=== PATIENT | male | born 1940 | race Hispanic/Latino ===

== ENCOUNTER 2022-04-20 11:24 | Day surgery (SDC) | payer OTHER ==
--- NOTE | 2022-04-17 09:39 | RAD REPORT ---
EXAM DESCRIPTION: RAD - Chest Pa And Lat (2 Views) - 04/17/2022 9:20 am CLINICAL HISTORY: Pre op pending abdominal angiogram Chest pain. COMPARISON: No comparisons TECHNIQUE: PA and lateral views of the chest were obtained. FINDINGS: The lungs are hyperexpanded compatible with COPD. The heart is upper limit of normal in si ze. No fracture or aggressive bony process. IMPRESSION: COPD without acute process identified. The USPSTF recommends annual screening for lung cancer with low-dose CT (LDCT) in adults aged 50 to 8 0 years who have a 20 pack-year smoking history and currently smoke or have quit within the past 15 y ears.
[2022-04-17 09:44] LABS: Absolute Lymphocytes (CBC) 1.8 K/uL (0.7-4.9); Lymphocytes % 16.8 % (15.3-44.8); MCV 96.8 fL (80-100); MPV 9.5 fL (7.6-11.3)
[2022-04-17 09:47] LABS: Protime INR 1.05
[2022-04-17 09:52] LABS: Potassium 4.1 mmol/L (3.5-5.1)
--- NOTE | 2022-04-17 16:49 | EKG ---
Test Date: 2022-04-17 Test Time: 09:01:56 Compliance Investigator: ERWIN MEASUREMENT RESULTS: Intervals: Rate: 69 IA: QRSD: 134 QT: 444 QTc: 475 [place]: P: IA: QRS: 6 T: 43 INTERPRETIVE STATEMENTS: Wide QRS rhythm Right bundle branch block Abnormal ECG No previous ECG available for comparison Electronically Signed On 04-17-22 16:49:18 SENIOR SALES ASSISTANT by Augustin Snow
[~2022-04-20 11:24] MED LIST: NA CHLORIDE 0.9% 500 ML ONE
[2022-04-20 11:59] VITALS: TEMP 97
[2022-04-20] MEDS ORDERED: FENTANYL CITR 100 MCG/2 ML ONE (12:30)
[2022-04-20] MEDS ORDERED: HEPA 1000U/500MLS 2,000 UNIT/1,000 ML BAG IV ONE (12:30)
[2022-04-20] MEDS ORDERED: ATROPINE SULF 1 MG/10 ML SYR IV ONE (12:31)
[2022-04-20] MEDS ORDERED: HEPARIN 5000 UNIT/ML 1 ML VIAL ONE (12:31)
[2022-04-20] MEDS ORDERED: MIDAZOLAM HCL 2 MG/2 ML INJ ONE (12:31)
[2022-04-20] MEDS ORDERED: NITROGLYCERIN 100 MCG/ML SYR (for cath lab use only) IV ONE (12:31)
[2022-04-20] MEDS ORDERED: HEPARIN 10,000 UNIT/10 ML VIAL IV ONE (12:31)
[2022-04-20] MEDS ORDERED: VERAPAMIL HCL 10 MG/4 ML VIAL IV ONE (12:31)
[2022-04-20] MEDS ORDERED: NACHLORIDE 0.45% 1,000 ML IV ONE (13:57)
[2022-04-20 15:39] VITALS: O2SAT 100
[2022-04-20 16:47] VITALS: BP 167/69
--- NOTE | 2022-04-20 18:34 | OP ---
Date of Procedure: 04/20/2022 Surgeon: POLY ROBERT Procedure Performed: Peripheral angiogram with runoff. Indication: Peripheral vascular disease. Access: Right femoral artery 4-Dutch closed with manual pressure. Complications: None. Bleeding: Less than 10 mL. Anesthesia: Total sedation time was 30 minutes, used fentanyl and Versed. Description Of Procedure: After risks, benefits, alternatives were explained, the patient agreed to procedure and signed informed consent. [facility], prepped and draped in the usual sterile fashion. Then, I accessed the right femoral artery u sing micropuncture kit, fluoroscopy, and ultrasound guidance and placed a 4-Dutch [place] sheath, t ook 4-Dutch straight pigtail catheter into the distal aorta, performed distal aortogram and runoff. Then, we removed the catheter and sheath and manual pressure was used for closure with good hemostas is. Findings: 1.The aorta is widely patent. 2.Bilateral iliac arteries are widely patent and normal. 3.Bilateral common femoral arteries are widely patent and normal. 4.Bilateral SFAs are normal with mild luminal irregularities. 5.Bilateral profunda are widely patent. 6.Below the knee circulation, there was a 3-vessel runoff; however, the flow was sluggish because I could not use large load of contrast due to the chronic kidney disease, but the vessels appeared to b e patent. Conclusion: Mild peripheral vascular disease. Recommendation: Medical management. SR/MODL Voice ID: [id number] Report ID: [id number]
== END 2022-04-20 16:59 | disposition home or self-care (01) ==
LOC: CCL 11:24
PROVIDERS: ATTEND Internal Medicine
DX: I73.9 Peripheral vascular disease, unspecified (principal); I11.0 Hypertensive heart disease with heart failure; I50.9 Heart failure, unspecified; I45.10 Unspecified right bundle-branch block; E11.9 Type 2 diabetes mellitus without complications; E78.5 Hyperlipidemia, unspecified; Z87.891 Personal history of nicotine dependence; Z79.899 Other long term (current) drug therapy; Z82.49 Family history of ischemic heart disease and other diseases of the circulatory system
CPT/HCPCS: 93005; 85025; 80048; 36415; 85610; 82947; 85730; 71046; 36200; 75630; 76937; C1893; Q9966; J2250; J3010; J7040; J1644; J0461

== ENCOUNTER 2022-05-10 12:34 | Inpatient (IN) | payer OTHER ==
--- OUTSIDE RECORDS SUMMARY | 2022-05-10 12:38 | XMS REPORT | Continuity of Care Document ---
:1940 Author Organization [facility] t Address [facility] Jacek Alcaraz [address] [place] [address] Care Team Providers Name Role Phone Matthew Sutherland Attending Clinician Unavailable Payers Payer Name Policy Type Policy Number Effective Date Expiration Date S ouranthony [employer] MEDICARE C1 [id number] Common Sp mariaelena - [facility] Problems Condition Condition Condition Status Onset Resolution Last Treating Co mments Source Name Details Category Date Date Treatment Clinician Date [id number] Body mass Problem Com mon index Spirit [BMI] - [facility] 37.0-37.9, [facility] [id number] 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 [id number] Psoriasis Problem Commo n Spirit - [facility] [id number] Primary Problem Common insomnia Spirit - [facility] [id number] Chronic Problem Commo n kidney Spirit disease, - [facility] stage 4 (severe) [facility] [id number] Type 2 Problem Commo n 07 diabetes [facility] mellitus - [facility] with [facility] kidney [place] disease Allergies, Adverse Reactions, Alerts This patient has no known allergies or adverse reactions. Social History Social Habit Start Date Stop Date Quantity Comments Source History of Tobacco Use Co mmon [facility] Sex Assigned At Com mon [facility] Smoking Status Start Date Stop Date Source Former Smoker 2022-02-03 00:00:00 2022-02-03 00:00:00 Common S pirit [facility] Medications Ordered Filled Start Stop Current Ordering Indication Dosage Frequency Signature Comments Components Source Medication Medication Date Date Medication? Clinician (SIG) Name Name Zolpidem Zolpidem 2021-03 No Zolpidem Tartrate 10 Tartrate 10 1-15 Tartrate MG MG 00:00: 10 MG 00 Zolpidem Zolpidem 2021-03 No Zolpidem Tartrate 10 Tartrate 10 1-15 Tartrate MG MG 00:00: 10 MG 00 Zolpidem Zolpidem No Zolpidem Tartrate 10 Tartrate 10 8-16 Tartrate MG MG 00:00: 10 MG 00 Atorvastati Atorvastati No 1{table QD Atorvastat n Calcium n Calcium 8-16 t} in Calcium 10 MG 10 MG 00:00: 10 MG 00 Atorvastati Atorvastati No 1{table QD Atorvastat n Calcium n Calcium 8-16 t} in Calcium 10 MG 10 MG 00:00: 10 MG 00 Zolpidem Zolpidem No Zolpidem Tartrate 10 Tartrate 10 8-16 Tartrate MG MG 00:00: 10 MG 00 Atorvastati Atorvastati No 1{table QD Atorvastat n Calcium n Calcium 8-16 t} in Calcium 10 MG 10 MG 00:00: 10 MG 00 Zolpidem Zolpidem 0 No Zolpidem Tartrate 10 Tartrate 10 8-16 Tartrate MG MG 00:00: 10 MG 00 Zolpidem Zolpidem 2021-0 No Zolpidem Tartrate 10 Tartrate 10 4-29 Tartrate MG MG 00:00: 10 MG 00 Zolpidem Zolpidem 2021-0 No QD Zolpidem Tartrate 10 Tartrate 10 3-28 Tartrate MG MG 00:00: 10 MG 00 Zolpidem Zolpidem 2021-0 No QD Zolpidem Tartrate 10 Tartrate 10 3-28 Tartrate MG MG 00:00: 10 MG 00 Zolpidem Zolpidem 2021-0 No QD Zolpidem Tartrate 10 Tartrate 10 3-28 Tartrate MG MG 00:00: 10 MG 00 Zolpidem Zolpidem 2021-0 No QD Zolpidem Tartrate 10 Tartrate 10 3-28 Tartrate MG MG 00:00: 10 MG 00 Zolpidem Zolpidem 2021-0 No QD Zolpidem Tartrate 10 Tartrate 10 3-28 Tartrate MG MG 00:00: 10 MG 00 Zolpidem Zolpidem 2021-0 No QD Zolpidem Tartrate 10 Tartrate 10 3-28 Tartrate MG MG 00:00: 10 MG 00 Zolpidem Zolpidem 2021-0 No Zolpidem Tartrate 10 Tartrate 10 1-27 Tartrate MG MG 00:00: 10 MG 00 Zolpidem Zolpidem 2020-1 No Zolpidem Tartrate 10 Tartrate 10 0-27 Tartrate MG MG 00:00: 10 MG 00 Furosemide Furosemide No 1{table QD Furosemide 40 MG 40 MG t} 40 MG Vitamin D3 Vitamin D3 No Vitamin D3 Allopurinol Allopurinol No Allopurino 300 MG 300 MG l 300 MG Glimepiride Glimepiride No Glimepirid 4 MG 4 MG e 4 MG Acetaminoph Acetaminoph No 1{capsu QID Acetaminop en 500 MG en 500 MG le_as_n hen 500 MG eeded} Tradjenta 5 Tradjenta 5 No 1{table QD Tradjenta MG MG t} 5 MG cloNIDine cloNIDine No 1{table BID cloNIDine HCl 0.2 MG HCl 0.2 MG t} HCl 0.2 MG Colchicine Colchicine No Colchicine 0.6 MG 0.6 MG 0.6 MG Acetaminoph Acetaminoph No QID Acetaminop en 500 MG en 500 MG hen 500 MG Losartan Losartan No 1{table QD Losartan Potassium Potassium t} Potassium 100 MG 100 MG 100 MG Naphcon-A Naphcon-A No QID Naphcon-A 0.025-0.3 % 0.025-0.3 % 0.025-0.3 % Montelukast Montelukast No 1{table QD Montelukas Sodium 10 Sodium 10 t} t Sodium MG MG 10 MG Jenna Jenna No QD Jenna Allergy 180 Allergy 180 Allergy MG MG 180 MG Calazime Calazime No Calazime Skin Skin Skin Protectant Protectant Protectant Tradjenta 5 Tradjenta 5 No Tradjenta MG MG 5 MG Tumersaid Tumersaid No Tumersaid Vitamin D3 Vitamin D3 No Vitamin D3 hydroCHLORO hydroCHLORO No hydroCHLOR thiazide 25 thiazide 25 Othiazide MG MG 25 MG Tradjenta 5 Tradjenta 5 No Tradjenta MG MG 5 MG cloNIDine cloNIDine No cloNIDine HCl 0.2 MG HCl 0.2 MG HCl 0.2 MG Jenna Jenna No QD Jenna Allergy 180 Allergy 180 Allergy MG MG 180 MG Colchicine Colchicine No Colchicine 0.6 MG 0.6 MG 0.6 MG Acetaminoph Acetaminoph No 1{capsu QID Acetaminop en 500 MG en 500 MG le_as_n hen 500 MG eeded} Glimepiride Glimepiride No Glimepirid 4 MG 4 MG e 4 MG Acetaminoph Acetaminoph No QID Acetaminop en 500 MG en 500 MG hen 500 MG Montelukast Montelukast No 1{table QD Montelukas Sodium 10 Sodium 10 t} t Sodium MG MG 10 MG Losartan Losartan No Losartan Potassium Potassium Potassium 100 MG 100 MG 100 MG Meloxicam Meloxicam No 1{table QD Meloxicam 15 MG 15 MG t} 15 MG Calazime Calazime No Calazime Skin Skin Skin Protectant Protectant Protectant Naphcon-A Naphcon-A No QID Naphcon-A 0.025-0.3 % 0.025-0.3 % 0.025-0.3 % Allopurinol Allopurinol No Allopurino 300 MG 300 MG l 300 MG Furosemide Furosemide No 1{table QD Furosemide 40 MG 40 MG t} 40 MG hydrALAZINE hydrALAZINE No hydrALAZIN HCl 50 MG HCl 50 MG E HCl 50 MG Tumersaid Tumersaid No Tumersaid Colchicine Colchicine No Colchicine 0.6 MG 0.6 MG 0.6 MG Furosemide Furosemide No 1{table QD Furosemide 40 MG 40 MG t} 40 MG Losartan Losartan No 1{table QD Losartan Potassium Potassium t} Potassium 100 MG 100 MG 100 MG cloNIDine cloNIDine No cloNIDine HCl 0.2 MG HCl 0.2 MG HCl 0.2 MG Glimepiride Glimepiride No Glimepirid 4 MG 4 MG e 4 MG Allopurinol Allopurinol No Allopurino 300 MG 300 MG l 300 MG Glucosamine Glucosamine No Glucosamin e Acetaminoph Acetaminoph No 1{capsu QID Acetaminop en 500 MG en 500 MG le_as_n hen 500 MG eeded} hydroCHLORO hydroCHLORO No hydroCHLOR thiazide 25 thiazide 25 Othiazide MG MG 25 MG Chondroitin Chondroitin No Chondroiti Sulfate Sulfate n Sulfate Vitamin C Vitamin C No Vitamin C hydrALAZINE hydrALAZINE No hydrALAZIN HCl 50 MG HCl 50 MG E HCl 50 MG Allopurinol Allopurinol No Allopurino 300 MG 300 MG l 300 MG cloNIDine cloNIDine No 1{table BID cloNIDine HCl 0.2 MG HCl 0.2 MG t} HCl 0.2 MG Tradjenta 5 Tradjenta 5 No Tradjenta MG MG 5 MG Jenna Jenna No QD Jenna Allergy 180 Allergy 180 Allergy MG MG 180 MG Turmeric Turmeric No Turmeric Glimepiride Glimepiride No Glimepirid 4 MG 4 MG e 4 MG Vitamin D3 Vitamin D3 No Vitamin D3 Calazime Calazime No Calazime Skin Skin Skin Protectant Protectant Protectant Losartan Losartan No Losartan Potassium Potassium Potassium 100 MG 100 MG 100 MG Montelukast Montelukast No 1{table QD Montelukas Sodium 10 Sodium 10 t} t Sodium MG MG 10 MG hydrALAZINE hydrALAZINE No 1{table QD hydrALAZIN HCl 50 MG HCl 50 MG t_with_ E HCl 50 food} MG MSM MSM No MSM Tumersaid Tumersaid No Tumersaid hydroCHLORO hydroCHLORO No hydroCHLOR thiazide 25 thiazide 25 Othiazide MG MG 25 MG Naphcon-A Naphcon-A No QID Naphcon-A 0.025-0.3 % 0.025-0.3 % 0.025-0.3 % Meloxicam Meloxicam No 1{table QD Meloxicam 15 MG 15 MG t} 15 MG Selenium Selenium No Selenium Co Q10 Co Q10 No Co Q10 PreserVisio PreserVisio No PreserVisi n AREDS 2 n AREDS 2 on AREDS 2 Acetaminoph Acetaminoph No QID Acetaminop en 500 MG en 500 MG hen 500 MG Vitamin D3 Vitamin D3 No Vitamin D3 Acetaminoph Acetaminoph No 1{capsu QID Acetaminop en 500 MG en 500 MG le_as_n hen 500 MG eeded} Chondroitin Chondroitin No Chondroiti Sulfate Sulfate n Sulfate Calazime Calazime No Calazime Skin Skin Skin Protectant Protectant Protectant Vitamin C Vitamin C No Vitamin C Losartan Losartan No 1{table QD Losartan Potassium Potassium t} Potassium 100 MG 100 MG 100 MG cloNIDine cloNIDine No 1{table BID cloNIDine HCl 0.2 MG HCl 0.2 MG t} HCl 0.2 MG Colchicine Colchicine No Colchicine 0.6 MG 0.6 MG 0.6 MG hydroCHLORO hydroCHLORO No hydroCHLOR thiazide 25 thiazide 25 Othiazide MG MG 25 MG Losartan Losartan No Losartan Potassium Potassium Potassium 100 MG 100 MG 100 MG Tumersaid Tumersaid No Tumersaid hydroCHLORO hydroCHLORO No hydroCHLOR thiazide 25 thiazide 25 Othiazide MG MG 25 MG Glimepiride Glimepiride No Glimepirid 4 MG 4 MG e 4 MG Allopurinol Allopurinol No Allopurino 300 MG 300 MG l 300 MG PreserVisio PreserVisio No PreserVisi n AREDS 2 n AREDS 2 on AREDS 2 Naphcon-A Naphcon-A No QID Naphcon-A 0.025-0.3 % 0.025-0.3 % 0.025-0.3 % hydrALAZINE hydrALAZINE No 1{table QD hydrALAZIN HCl 50 MG HCl 50 MG t_with_ E HCl 50 food} MG MSM MSM No MSM Allopurinol Allopurinol No Allopurino 300 MG 300 MG l 300 MG Acetaminoph Acetaminoph No QID Acetaminop en 500 MG en 500 MG hen 500 MG Co Q10 Co Q10 No Co Q10 Glucosamine Glucosamine No Glucosamin e hydrALAZINE hydrALAZINE No hydrALAZIN HCl 50 MG HCl 50 MG E HCl 50 MG cloNIDine cloNIDine No cloNIDine HCl 0.2 MG HCl 0.2 MG HCl 0.2 MG Furosemide Furosemide No 1{table QD Furosemide 40 MG 40 MG t} 40 MG Montelukast Montelukast No 1{table QD Montelukas Sodium 10 Sodium 10 t} t Sodium MG MG 10 MG Jenna Jenna No QD Jenna Allergy 180 Allergy 180 Allergy MG MG 180 MG Glimepiride Glimepiride No Glimepirid 4 MG 4 MG e 4 MG Tradjenta 5 Tradjenta 5 No Tradjenta MG MG 5 MG Selenium Selenium No Selenium Meloxicam Meloxicam No 1{table QD Meloxicam 15 MG 15 MG t} 15 MG Turmeric Turmeric No Turmeric Montelukast Montelukast No 1{table QD Montelukas Sodium 10 Sodium 10 t} t Sodium MG MG 10 MG Vitamin C Vitamin C No Vitamin C Glimepiride Glimepiride No Glimepirid 4 MG 4 MG e 4 MG hydroCHLORO hydroCHLORO No hydroCHLOR thiazide 25 thiazide 25 Othiazide MG MG 25 MG Allopurinol Allopurinol No Allopurino 300 MG 300 MG l 300 MG Chondroitin Chondroitin No Chondroiti Sulfate Sulfate n Sulfate Vitamin D3 Vitamin D3 No Vitamin D3 Colchicine Colchicine No Colchicine 0.6 MG 0.6 MG 0.6 MG Calazime Calazime No Calazime Skin Skin Skin Protectant Protectant Protectant Acetaminoph Acetaminoph No 1{capsu QID Acetaminop en 500 MG en 500 MG le_as_n hen 500 MG eeded} Allopurinol Allopurinol No Allopurino 300 MG 300 MG l 300 MG cloNIDine cloNIDine No 1{table BID cloNIDine HCl 0.2 MG HCl 0.2 MG t} HCl 0.2 MG cloNIDine cloNIDine No cloNIDine HCl 0.2 MG HCl 0.2 MG HCl 0.2 MG PreserVisio PreserVisio No PreserVisi n AREDS 2 n AREDS 2 on AREDS 2 Naphcon-A Naphcon-A No QID Naphcon-A 0.025-0.3 % 0.025-0.3 % 0.025-0.3 % Glimepiride Glimepiride No Glimepirid 4 MG 4 MG e 4 MG Co Q10 Co Q10 No Co Q10 Tumersaid Tumersaid No Tumersaid Acetaminoph Acetaminoph No QID Acetaminop en 500 MG en 500 MG hen 500 MG Losartan Losartan No Losartan Potassium Potassium Potassium 100 MG 100 MG 100 MG Glucosamine Glucosamine No Glucosamin e Furosemide Furosemide No 1{table QD Furosemide 40 MG 40 MG t} 40 MG MSM MSM No MSM Jenna Jenna No QD Jenna Allergy 180 Allergy 180 Allergy MG MG 180 MG hydrALAZINE hydrALAZINE No hydrALAZIN HCl 50 MG HCl 50 MG E HCl 50 MG Tradjenta 5 Tradjenta 5 No Tradjenta MG MG 5 MG Selenium Selenium No Selenium Meloxicam Meloxicam No 1{table QD Meloxicam 15 MG 15 MG t} 15 MG Turmeric Turmeric No Turmeric Montelukast Montelukast No 1{table QD Montelukas Sodium 10 Sodium 10 t} t Sodium MG MG 10 MG Co Q10 Co Q10 No Co Q10 Furosemide Furosemide No 1{table QD Furosemide 40 MG 40 MG t} 40 MG hydrALAZINE hydrALAZINE No 1{table QD hydrALAZIN HCl 50 MG HCl 50 MG t_with_ E HCl 50 food} MG Acetaminoph Acetaminoph No 1{capsu QID Acetaminop en 500 MG en 500 MG le_as_n hen 500 MG eeded} Vitamin D3 Vitamin D3 No Vitamin D3 Glimepiride Glimepiride No Glimepirid 4 MG 4 MG e 4 MG Tradjenta 5 Tradjenta 5 No Tradjenta MG MG 5 MG Allopurinol Allopurinol No Allopurino 300 MG 300 MG l 300 MG Meloxicam Meloxicam No 1{table QD Meloxicam 15 MG 15 MG t} 15 MG Turmeric Turmeric No Turmeric Tumersaid Tumersaid No Tumersaid Colchicine Colchicine No Colchicine 0.6 MG 0.6 MG 0.6 MG cloNIDine cloNIDine No 1{table BID cloNIDine HCl 0.2 MG HCl 0.2 MG t} HCl 0.2 MG PreserVisio PreserVisio No PreserVisi n AREDS 2 n AREDS 2 on AREDS 2 Atorvastati Atorvastati No 1{table QD Atorvastat n Calcium n Calcium t} in Calcium 10 MG 10 MG 10 MG Losartan Losartan No Losartan Potassium Potassium Potassium 100 MG 100 MG 100 MG hydroCHLORO hydroCHLORO No hydroCHLOR thiazide 25 thiazide 25 Othiazide MG MG 25 MG Glucosamine Glucosamine No Glucosamin e Acetaminoph Acetaminoph No QID Acetaminop en 500 MG en 500 MG hen 500 MG Losartan Losartan No 1{table QD Losartan Potassium Potassium t} Potassium 100 MG 100 MG 100 MG MSM MSM No MSM hydroCHLORO hydroCHLORO No hydroCHLOR thiazide 25 thiazide 25 Othiazide MG MG 25 MG Jenna Jenna No QD Jenna Allergy 180 Allergy 180 Allergy MG MG 180 MG Calazime Calazime No Calazime Skin Skin Skin Protectant Protectant Protectant Vitamin C Vitamin C No Vitamin C Selenium Selenium No Selenium Naphcon-A Naphcon-A No QID Naphcon-A 0.025-0.3 % 0.025-0.3 % 0.025-0.3 % Chondroitin Chondroitin No Chondroiti Sulfate Sulfate n Sulfate Allopurinol Allopurinol No Allopurino 300 MG 300 MG l 300 MG cloNIDine cloNIDine No cloNIDine HCl 0.2 MG HCl 0.2 MG HCl 0.2 MG Glimepiride Glimepiride No Glimepirid 4 MG 4 MG e 4 MG Atorvastati Atorvastati No Atorvastat n Calcium n Calcium in Calcium 10 MG 10 MG 10 MG hydrALAZINE hydrALAZINE No hydrALAZIN HCl 50 MG HCl 50 MG E HCl 50 MG Vitamin D3 Vitamin D3 No Vitamin D3 Tumersaid Tumersaid No Tumersaid Colchicine Colchicine No Colchicine 0.6 MG 0.6 MG 0.6 MG Allopurinol Allopurinol No Allopurino 300 MG 300 MG l 300 MG PreserVisio PreserVisio No PreserVisi n AREDS 2 n AREDS 2 on AREDS 2 Jenna Jenna No QD Jenna Allergy 180 Allergy 180 Allergy MG MG 180 MG Vitamin C Vitamin C No Vitamin C cloNIDine cloNIDine No 1{table BID cloNIDine HCl 0.2 MG HCl 0.2 MG t} HCl 0.2 MG Atorvastati Atorvastati No 1{table QD Atorvastat n Calcium n Calcium t} in Calcium 10 MG 10 MG 10 MG hydrALAZINE hydrALAZINE No hydrALAZIN HCl 50 MG HCl 50 MG E HCl 50 MG Furosemide Furosemide No 1{table QD Furosemide 40 MG 40 MG t} 40 MG Calazime Calazime No Calazime Skin Skin Skin Protectant Protectant Protectant Acetaminoph Acetaminoph No 1{capsu QID Acetaminop en 500 MG en 500 MG le_as_n hen 500 MG eeded} Turmeric Turmeric No Turmeric Acetaminoph Acetaminoph No QID Acetaminop en 500 MG en 500 MG hen 500 MG Chondroitin Chondroitin No Chondroiti Sulfate Sulfate n Sulfate Allopurinol Allopurinol No Allopurino 300 MG 300 MG l 300 MG Meloxicam Meloxicam No 1{table QD Meloxicam 15 MG 15 MG t} 15 MG Selenium Selenium No Selenium Naphcon-A Naphcon-A No QID Naphcon-A 0.025-0.3 % 0.025-0.3 % 0.025-0.3 % Co Q10 Co Q10 No Co Q10 Glimepiride Glimepiride No Glimepirid 4 MG 4 MG e 4 MG Tradjenta 5 Tradjenta 5 No Tradjenta MG MG 5 MG Glucosamine Glucosamine No Glucosamin e Montelukast Montelukast No 1{table QD Montelukas Sodium 10 Sodium 10 t} t Sodium MG MG 10 MG MSM MSM No MSM Losartan Losartan No Losartan Potassium Potassium Potassium 100 MG 100 MG 100 MG cloNIDine cloNIDine No cloNIDine HCl 0.2 MG HCl 0.2 MG HCl 0.2 MG Glimepiride Glimepiride No Glimepirid 4 MG 4 MG e 4 MG Atorvastati Atorvastati No Atorvastat n Calcium n Calcium in Calcium 10 MG 10 MG 10 MG hydroCHLORO hydroCHLORO No hydroCHLOR thiazide 25 thiazide 25 Othiazide MG MG 25 MG Montelukast Montelukast No 1{table QD Montelukas Sodium 10 Sodium 10 t} t Sodium MG MG 10 MG Vitamin C Vitamin C No Vitamin C Glimepiride Glimepiride No Glimepirid 4 MG 4 MG e 4 MG hydroCHLORO hydroCHLORO No hydroCHLOR thiazide 25 thiazide 25 Othiazide MG MG 25 MG Allopurinol Allopurinol No Allopurino 300 MG 300 MG l 300 MG Chondroitin Chondroitin No Chondroiti Sulfate Sulfate n Sulfate Vitamin D3 Vitamin D3 No Vitamin D3 Colchicine Colchicine No Colchicine 0.6 MG 0.6 MG 0.6 MG Calazime Calazime No Calazime Skin Skin Skin Protectant Protectant Protectant Acetaminoph Acetaminoph No 1{capsu QID Acetaminop en 500 MG en 500 MG le_as_n hen 500 MG eeded} Allopurinol Allopurinol No Allopurino 300 MG 300 MG l 300 MG cloNIDine cloNIDine No 1{table BID cloNIDine HCl 0.2 MG HCl 0.2 MG t} HCl 0.2 MG cloNIDine cloNIDine No cloNIDine HCl 0.2 MG HCl 0.2 MG HCl 0.2 MG PreserVisio PreserVisio No PreserVisi n AREDS 2 n AREDS 2 on AREDS 2 Naphcon-A Naphcon-A No QID Naphcon-A 0.025-0.3 % 0.025-0.3 % 0.025-0.3 % Glimepiride Glimepiride No Glimepirid 4 MG 4 MG e 4 MG Co Q10 Co Q10 No Co Q10 Tumersaid Tumersaid No Tumersaid Acetaminoph Acetaminoph No QID Acetaminop en 500 MG en 500 MG hen 500 MG Losartan Losartan No Losartan Potassium Potassium Potassium 100 MG 100 MG 100 MG Glucosamine Glucosamine No Glucosamin e Furosemide Furosemide No 1{table QD Furosemide 40 MG 40 MG t} 40 MG MSM MSM No MSM Jenna Jenna No QD Jenna Allergy 180 Allergy 180 Allergy MG MG 180 MG hydrALAZINE hydrALAZINE No hydrALAZIN HCl 50 MG HCl 50 MG E HCl 50 MG Tradjenta 5 Tradjenta 5 No Tradjenta MG MG 5 MG Selenium Selenium No Selenium Meloxicam Meloxicam No 1{table QD Meloxicam 15 MG 15 MG t} 15 MG Turmeric Turmeric No Turmeric hydroCHLORO hydroCHLORO No hydroCHLOR thiazide 25 thiazide 25 Othiazide MG MG 25 MG Losartan Losartan No Losartan Potassium Potassium Potassium 100 MG 100 MG 100 MG Allopurinol Allopurinol No Allopurino 300 MG 300 MG l 300 MG Glimepiride Glimepiride No Glimepirid 4 MG 4 MG e 4 MG cloNIDine cloNIDine No cloNIDine HCl 0.2 MG HCl 0.2 MG HCl 0.2 MG Meloxicam Meloxicam No 1{table QD Meloxicam 15 MG 15 MG t} 15 MG hydroCHLORO hydroCHLORO No hydroCHLOR thiazide 25 thiazide 25 Othiazide MG MG 25 MG hydrALAZINE hydrALAZINE No 1{table QD hydrALAZIN HCl 50 MG HCl 50 MG t_with_ E HCl 50 food} MG Vital Signs Vital Name Observation Time Observation Value Comments Source height 2022-02-07 13:00:00 67 [in_i] [facility] weight 2022-02-07 13:00:00 200.1 [lb_av] [facility] temperature 2022-02-07 13:00:00 97.3 [degF] [facility] bmi 2022-02-07 13:00:00 31.34 kg/m2 [facility] oximetry 2022-02-07 13:00:00 99 % [facility] respiratory rate 2022-02-07 13:00:00 18 /min Comm on [facility] blood pressure 2022-02-07 13:00:00 138 mm[Hg] Common [facility] - systolic [facility] blood pressure 2022-02-07 13:00:00 76 mm[Hg] [facility] diastolic [facility] height 2021-11-08 10:20:00 67 [in_i] [facility] weight 2021-11-08 10:20:00 201.0 [lb_av] [facility] temperature 2021-11-08 10:20:00 98.6 [degF] [facility] bmi 2021-11-08 10:20:00 31.48 kg/m2 [facility] oximetry 2021-11-08 10:20:00 99 % [facility] respiratory rate 2021-11-08 10:20:00 18 /min Comm on [facility] blood pressure 2021-11-08 10:20:00 137 mm[Hg] Common [facility] - systolic [facility] blood pressure 2021-11-08 10:20:00 72 mm[Hg] [facility] diastolic [facility] height 2021-07-22 10:00:00 67 [in_i] Common S pirit - [facility] weight 2021-07-22 10:00:00 200.7 [lb_av] [facility] temperature 2021-07-22 10:00:00 97.8 [degF] Common S pirit - [facility] bmi 2021-07-22 10:00:00 31.43 kg/m2 Common S pirit [facility] oximetry 2021-07-22 10:00:00 98 % [facility] 2021-07-22 10:00:00 17 /min Comm on [facility] blood pressure 2021-07-22 10:00:00 138 mm[Hg] Common [facility] - systolic [facility] blood pressure 2021-07-22 10:00:00 76 mm[Hg] Common [facility] - diastolic [facility] height 2021-04-21 10:30:00 67 [in_i] [facility] weight 2021-04-21 10:30:00 202.8 [lb_av] [facility] temperature 2021-04-21 10:30:00 97.5 [degF] Common S [facility] bmi 2021-04-21 10:30:00 31.76 kg/m2 Common S pirit [facility] oximetry 2021-04-21 10:30:00 100 % Common S pirit [facility] respiratory rate 2021-04-21 10:30:00 18 /min Comm on [facility] blood pressure 2021-04-21 10:30:00 132 mm[Hg] [facility] - systolic [facility] blood pressure 2021-04-21 10:30:00 65 mm[Hg] [facility] - diastolic [facility] height 2021-01-19 14:30:00 67 [in_i] Common S pirit [facility] weight 2021-01-19 14:30:00 203.7 [lb_av] Common [facility] temperature 2021-01-19 14:30:00 98.6 [degF] Common [facility] bmi 2021-01-19 14:30:00 31.9 kg/m2 Common [facility] oximetry 2021-01-19 14:30:00 98 % Common [facility] respiratory rate 2021-01-19 14:30:00 16 /min Comm on [facility] blood pressure 2021-01-19 14:30:00 118 mm[Hg] Common [facility] systolic [facility] blood pressure 2021-01-19 14:30:00 58 mm[Hg] Common [facility] diastolic [facility] Procedures This patient has no known procedures. Encounters Start End Encounter Admission Attending Care Care Encounter Source Date/Time Date/Time Type Type Clinicians Facility Department ID 2022-03-24 Outpatient [facility]uther[facility], STLMLC STLMLC [id number] Common 11:15:01 Matthew [facility] 2022-02-03 Outpatient [facility]utherland, STLMLC STLMLC [id number] Common 09:58:01 Matthew [facility] 2021-04-21 Outpatient Sutherland, STLMLC STLMLC [id number] Common 10:21:03 Matthew [facility] 2021-04-20 Outpatient [facility]utherland, STLMLC STLMLC [id number] Common 13:33:17 Matthew [facility] 2021-04-20 Outpatient Sutherland, STLMLC STLMLC [id number] Common 12:50:47 Matthew [id number] [facility] 2021-04-20 Outpatient Sutherland, STLMLC STLMLC [id number] Common 12:35:54 Matthew [id number] [facility] 2022-03-22 2022-03-22 (TEL) STLMLC STLMLC [id number] Co mmon 00:00:00 00:00:00 [facility] 2022-02-07 2022-02-07 OFFICE STLMLC STLMLC [id number] Co mmon 00:00:00 00:00:00 VISIT [facility] ESTAB PT - CHI LEVEL 4 [facility] 2021-12-23 2021-12-23 (TEL) STLMLC STLMLC [id number] Co mmon 00:00:00 00:00:00 [facility] 2021-11-08 2021-11-08 OFFICE STLMLC STLMLC [id number] Co mmon 00:00:00 00:00:00 VISIT [facility] ESTAB PT - CHI LEVEL [address] [place] [address] 2021-07-22 2021-07-22 (WELLNESS) STLMLC STLMLC [id number] Common 00:00:00 00:00:00 [facility] 2021-04-21 2021-04-21 OFFICE STLMLC STLMLC [id number] Co mmon 00:00:00 00:00:00 VISIT [facility] ESTAB PT - CHI LEVEL [address] [place] [address] 2021-01-19 2021-01-19 OFFICE STLMLC STLMLC [id number] Co mmon 00:00:00 00:00:00 VISIT [facility] ESTAB PT - [place] LEVEL [address] [place] [address] 2020-11-19 2020-11-19 Outpatient [facility] ST[facility] [id number] Common 00:00:00 00:00:00 [facility] 2020-11-18 2020-11-18 Outpatient [facility] ST[facility] [id number] Common 00:00:00 00:00:00 [facility] 2020-10-26 2020-10-26 Outpatient [facility] ST[facility] [id number] Common 00:00:00 00:00:00 [facility] 2020-07-06 2020-07-06 Outpatient [facility] ST[facility] [id number] Common 00:00:00 00:00:00 [facility] 2020-07-06 2020-07-06 Outpatient [facility] STL[facility]C [id number] Common 00:00:00 00:00:00 [facility] 2020-05-26 2020-05-26 Outpatient STLMLC STLMLC [id number] Common 00:00:00 00:00:00 [facility] Results This patient has no known results.
--- NOTE | 2022-05-10 13:56 | RAD REPORT ---
EXAM DESCRIPTION: US - Lower Extremity Artery Uni Ltd - 05/10/2022 1:37 pm CLINICAL HISTORY: Pain right lower extremity COMPARISON: None FINDINGS: Color Doppler, grayscale, and spectral analysis was performed. The common femoral, superficial femoral and popliteal arteries demonstrate triphasic waveforms The the dorsalis pedis artery has a triphasic waveform. The posterior tibial artery has a biphasic wa veform. IMPRESSION: No hemodynamically significant arterial stenosis identified in the right lower extremity .
--- NOTE | 2022-05-10 13:59 | RAD REPORT ---
EXAM DESCRIPTION: US - Extremity Venous Uni Ltd - 05/10/2022 1:37 pm CLINICAL HISTORY: Right lower extremity pain COMPARISON: None. TECHNIQUE: Real-time sonographic evaluation of the right lower extremity deep venous system was perf ormed. FINDINGS: Normal compressibility, flow augmentation, phasic flow and spontaneous flow is identified in the right lower extremity deep venous system. No intraluminal filling defects seen. Hypoechoic structure at located just anterior to the right common femoral artery and common femoral v ein in the groin measures 4.7 x 1.4 x 1.8 cm. No flow identified. Presumably reactive right groin lymph nodes noted. IMPRESSION: No DVT in the right lower extremity. Hypoechoic fluid collection in the right groin just anterior to the right common femoral artery and v ein. It could be from a prior vascular access procedure. No flow identified to suggest the presence o f a pseudoaneurysm.
--- NOTE | 2022-05-10 14:02 | RAD REPORT ---
EXAM DESCRIPTION: RAD - Chest Single View - 05/10/2022 1:52 pm CLINICAL HISTORY: FEVER COMPARISON: Chest Pa And Lat (2 Views) dated 04/17/2022 FINDINGS: Lines: None. Lungs: No evidence of edema or pneumonia. Pleural: No significant pleural effusions or pneumothorax. Cardiac: The heart size is within normal limits. Mediastinum: Within normal limits. Bones: No acute fractures. Other: None IMPRESSION: No acute cardiopulmonary disease.
[2022-05-10] MEDS ORDERED: ACETAMINOPHEN 500 MG TAB ONE (14:39)
[2022-05-10 15:15] LABS: Absolute Lymphocytes (CBC) 0.3 K/uL (0.7-4.9); Hematocrit 28.4 % (39.6-49.0); Lymphocytes % 1.6 % (15.3-44.8); MCV 97.3 fL (80-100); MPV 9.3 fL (7.6-11.3); RBC Red Blood Cell Count 2.92 M/uL (4.33-5.43)
[2022-05-10 15:22] LABS: Protime INR 1.14
[2022-05-10 15:32] LABS: Albumin 3.9 g/dL (3.4-5.0); Bilirubin Total 0.4 mg/dL (0.2-1.0); Potassium 4.4 mmol/L (3.5-5.1)
[2022-05-10 16:14] LABS: Urine Blood Negative (Negative); Urine Glucose Negative (Negative); Urine Protein 1+ (Negative); Urine pH 5.5 (5.0-7.0)
[2022-05-10 16:18] LABS: Urine Bacteria <20 /HPF (<20); Urine Mucus Slight /HPF (None Seen); Urine RBC <5 /HPF (None Seen)
[2022-05-10 17:26] LABS: SARS-COV-2 RT PCR NEGATIVE (NEGATIVE)
--- NOTE | 2022-05-10 17:57 | RAD REPORT ---
EXAM DESCRIPTION: CTAbdomen Pelvis Wo Contrast - 05/10/2022 5:42 pm CLINICAL HISTORY: ABD PAIN COMPARISON: None TECHNIQUE: CT of the abdomen and pelvis was performed. All CT scans are performed using dose optimization technique as appropriate and may include automated exposure control or mA/KV adjustment according to patient size. FINDINGS: Lower chest: Hiatal hernia. Circumferential thickened distal esophagus. Coronary artery ca lcifications. Trace pericardial effusion. Mild cardiomegaly. Liver: No acute abnormality or suspicious lesions. Biliary: No biliary ductal dilatation. Stomach: No significant focal abnormality. Duodenum: No significant focal abnormality. Pancreas: No significant abnormality. Spleen: No significant abnormality. Adrenal: No suspicious lesions. Kidney/ureter: No hydronephrosis. Punctate stone in the upper pole right kidney. Too small to charact erize and/or benign appearing renal lesions are noted. Mild nonspecific perinephric stranding. Sign u p for Retroperitoneum: No retroperitoneal adenopathy. Vascular: No aneurysm. Atherosclerosis. Bowel: Moderate colonic stool.. Normal appendix. Peritoneum: No ascites or free air. Bladder: Grossly unremarkable. Reproductive: No adenopathy or masses Bones: No acute fracture. Multilevel degenerative changes are present in the spine. Other: n/a IMPRESSION: No acute intra-abdominal or pelvic finding. Nonobstructive right nephrolithiasis. Normal appendix. Possible constipation.
--- NOTE | 2022-05-10 18:41 | ER ---
Nurse's Notes [facility] Name: Maik Mahmood Age: 81 yrs Sex: Male : 1940 Arrival Date: 05/10/2022 Time: 12:38 Bed 17 Private MD: Matthew Sutherland Diagnosis: Fever, unspecified;Acute kidney failure, unspecified;Constipation;Retention of urine, unspecified Presentation: 05/10 12:50 Chief complaint: Patient states: he has had fever for approx 5 days. patient also ap3 reports constipation, and he states that he has been weak. patient states he had a heart cath or angiogram last week with access in his right groin and continues to have right leg and low back pain since. Coronavirus screen: At this time, the client does not indicate any symptoms associated with coronavirus-19. Ebola Screen: No symptoms or risks identified at this time. Initial Sepsis Screen: Does the patient meet any 2 criteria? Temp <36.0*C (96.8*F)) or > 38.3*C (100.9*F). Does the patient have a suspected source of infection? No. Patient's initial sepsis screen is negative. Risk Assessment: Do you want to hurt yourself or someone else? Patient reports no desire to harm self or others. Onset of symptoms was May 02, 2022. 12:50 Method Of Arrival: Wheelchair ap3 12:50 Acuity: PATRICIA 2 ap3 Triage Assessment: 13:00 General: Appears uncomfortable, Behavior is calm, cooperative, appropriate for age. ap3 Pain: Denies pain. Complains of pain in low back area and right leg Pain began gradually, over the last week. Neuro: Level of Consciousness is awake, alert, obeys commands, Oriented to person, place, time, situation. Cardiovascular: Patient's skin is warm and dry. Respiratory: Airway is patent Respiratory effort is even, unlabored, Respiratory pattern is regular, symmetrical. GI: Reports constipation. Historical: - Allergies: 12:54 No Known Allergies; ap3 - Home Meds: 12:54 hydralazine 50 mg Oral tab 1 tab 2 times per day [Active]; atorvastatin 10 mg oral tab ap3 1 tab once daily [Active]; losartan 100 mg oral tab 1 tab once daily [Active]; amlodipine 5 mg tab 1 tab once daily [Active]; hydrochlorothiazide 25 mg Oral tab 1 tab once daily [Active]; clonidine HCl 0.2 mg Oral tab 1 tab 2 times per day [Active]; allopurinol 300 mg Oral tab 1 tab once daily [Active]; furosemide 40 mg Oral tab 1 tab once daily [Active]; glimepiride 4 mg Oral tab 1 tab BID [Active]; - PMHx: 12:54 Hypertensive disorder; Hypercholesterolemia; ap3 - Immunization history:: Client reports having NOT received the Covid vaccine. - Social history:: Smoking status: Patient denies any tobacco usage or history of. Screenin:01 Abuse screen: Denies threats or abuse. Nutritional screening: No deficits noted. ap3 Tuberculosis screening: No symptoms or risk factors identified. 18:04 [facility] ED Fall Risk Assessment (Adult) History of falling in the last 3 months, jh5 including since admission No falls in past 3 months (0 pts) Confusion or Disorientation No (0 pts) Intoxicated or Sedated No (0 pts) Impaired Gait No (0 pts) Mobility Assist Device Used No (0 pt) Altered Elimination No (0 pt) Score/Fall Risk Level 0 - 2 = Low Risk. Assessment: 19:00 Reassessment: approx an hour and a half ago a bladder scan was done and 691 was in jh5 bladder; pt emptied bladder and bladder scanner read 275 left in bladder. provider informed. 20:04 General: Appears in no apparent distress. comfortable, Behavior is calm, cooperative. lg3 Pain: Denies pain. Neuro: No deficits noted. Collier Agitation-Sedation Scale (RASS): 0 - Alert and Calm Level of Consciousness is awake, alert, obeys commands, Oriented to person, place, time, situation. Cardiovascular: No deficits noted. Denies chest pain, shortness of breath, Capillary refill < 3 seconds Clubbing of nail beds is absent JVD is absent Patient's skin is warm and dry. Respiratory: No deficits noted. Airway is patent Trachea midline Respiratory effort is even, unlabored, Respiratory pattern is regular, symmetrical. GI: No deficits noted. No signs and/or symptoms were reported involving the gastrointestinal system. : Castro in place to gravity drainage. EENT: No deficits noted. No signs and/or symptoms were reported regarding the EENT system. Derm: No deficits noted. No signs and/or symptoms reported regarding the dermatologic system. Skin is intact, is healthy with good turgor, Skin is dry, Skin is normal, Skin temperature is warm. Musculoskeletal: No deficits noted. No signs and/or symptoms reported regarding the musculoskeletal system. Circulation, motion, and sensation intact. Range of motion: intact in all extremities. Vital Signs: 12:50 BP 171 / 60; Pulse 81; Resp 19; Temp 101.2; Pulse Ox 97% ; Weight 91.63 kg; ap3 15:06 BP 160 / 71; Pulse 78; Resp 18; Temp 99.0; Pulse Ox 96% ; jh5 16:52 BP 148 / 68; Pulse 77; Resp 18; Pulse Ox 98% ; jh5 18:00 BP 144 / 72; Pulse 72; Resp 18; Temp 97.9(O); Pulse Ox 100% ; jh5 20:04 BP 155 / 72; Pulse 77; Resp 17; Temp 98.7(O); Pulse Ox 99% on R/A; lg3 05/11 00:11 BP 144 / 59; Pulse 78; Resp 17 S; Pulse Ox 100% on R/A; lg3 ED Course: 05/10 12:38 Patient arrived in ED. mr 12:38 Matthew Sutherland DO is Private Physician. mr 12:54 Triage completed. ap3 12:56 Zoraida Christensen F[facility]-C [facility] kb 12:56 Julio Ford MD is Attending Physician. kb 13:01 Arm band placed on right wrist. ap3 15:13 Inserted saline lock: 20 gauge in right antecubital area, using aseptic technique. jh5 15:14 No provider procedures requiring assistance completed. jh5 15:17 EKG done, by ED staff. bc6 15:30 Second set of blood cultures drawn. em1 16:51 COVID-19/FLU A+B Sent. jh5 18:04 Patient has correct armband on for positive identification. Bed in low position. Call [facility] light in reach. Side rails up X 1. 18:39 Isreal Bhagat MD is Hospitalizing Provider. kb 19:03 Castro cath inserted, using sterile technique, 18 Fr., by tx, balloon inflated, to jh5 gravity drainage. 19:52 Urine Culture Sent. lg3 20:08 Patient admitted, IV remains in place. intact, No redness/swelling at site. lg3 05/11 00:17 Carley Warner, RN is Primary Nurse. lg3 Administered Medications: 05/10 14:45 Drug: Tylenol 1000 mg Route: PO; 5 20:08 Follow up: Response: No adverse reaction; Temperature is decreased lg3 20:03 Drug: Cefepime 1 grams Route: IVPB; Rate: 200 ml/hr; Infused Over: 30 mins; Site: right lg3 antecubital; 20:21 Follow up: Response: No adverse reaction; IV Status: Completed infusion; IV Intake: lg3 100ml 20:45 Drug: vancoMYCIN 1 grams Route: IVPB; Infused Over: 2 hrs; Site: right antecubital; lg3 Medication: 15:14 VIS not applicable for this client. 5 Intake: 20:21 IV: 100ml; Total: 100ml. lg3 Outcome: 18:40 Decision to Hospitalize by Provider. kb 20:08 Admitted to ER Hold. Please see [facility] for further documentation. lg3 20:08 Condition: stable 20:08 Instructed on the need for admit, Demonstrated understanding of instructions. 05/11 01:47 Patient left the ED. lg3 Signatures: Zoraida Christensen, FLOOR BROKER-C FLOOR BROKER-Ckb Rustam, Elysia wilson Leodan López em1 Kelly Hanley RN RN ap3 Carley Warner, RN RN lg3 Alem May RN RN jh5 Mel Murray [facility]
--- NOTE | 2022-05-10 18:41 | EDPHYS ---
Physician Documentation [facility] Name: Maik Mahmood Age: 81 yrs Sex: Male : 1940 Arrival Date: 05/10/2022 Time: 12:38 Bed 17 Private MD: Koko [facility] ED Physician Julio Ford HPI: 05/10 17:54 This 81 yrs old Male presents to ER via Wheelchair with complaints of Fever, kb Urinary Problem, Leg weakness. 17:54 The patient reports fever. kb 17:55 Onset: The symptoms/episode began/occurred 5 day(s) ago. Modifying factors: there are kb no obvious modifying factors. Associated signs and symptoms: Pertinent positives: abdominal pain, nausea. Severity of symptoms: At their worst the symptoms were mild moderate in the emergency department the symptoms are unchanged. The patient has not experienced similar symptoms in the past. The patient has been recently seen by a physician:. Historical: - Allergies: 12:54 No Known Allergies; ap3 - Home Meds: 12:54 hydralazine 50 mg Oral tab 1 tab 2 times per day [Active]; atorvastatin 10 mg oral tab ap3 1 tab once daily [Active]; losartan 100 mg oral tab 1 tab once daily [Active]; amlodipine 5 mg tab 1 tab once daily [Active]; hydrochlorothiazide 25 mg Oral tab 1 tab once daily [Active]; clonidine HCl 0.2 mg Oral tab 1 tab 2 times per day [Active]; allopurinol 300 mg Oral tab 1 tab once daily [Active]; furosemide 40 mg Oral tab 1 tab once daily [Active]; glimepiride 4 mg Oral tab 1 tab BID [Active]; - PMHx: 12:54 Hypertensive disorder; Hypercholesterolemia; ap3 - Immunization history:: Client reports having NOT received the Covid vaccine. - Social history:: Smoking status: Patient denies any tobacco usage or history of. ROS: 17:53 Respiratory: Negative for shortness of breath, cough, wheezing, and pleuritic chest kb pain. 17:53 Constitutional: Positive for fever. 17:53 Abdomen/GI: Positive for abdominal pain, nausea, constipation, Negative for vomiting, diarrhea. 17:53 : Positive for decreased stream . 17:53 MS/extremity: Positive for pain, of the right femoral area. 17:53 All other systems are negative. 17:55 Back: Positive for pain at rest. kb Exam: 17:18 Constitutional: This is a well developed, well nourished patient who is awake, alert, kb and in no acute distress. Head/Face: Normocephalic, atraumatic. ENT: Moist Mucous membranes Cardiovascular: Regular rate and rhythm with a normal S1 and S2. No gallops, murmurs, or rubs. No pulse deficits. Respiratory: Respirations even and unlabored. No increased work of breathing. Talking in full sentences Abdomen/GI: Soft, non-tender. No distention Skin: Warm, dry with normal turgor. Normal color. MS/ Extremity: Pulses equal, no cyanosis. Neurovascular intact. Full, normal range of motion. Mass palpated in right groin Neuro: Awake and alert, GCS 15, oriented to person, place, time, and situation. Moves all extremities. Normal gait. Psych: Awake, alert, with orientation to person, place and time. Behavior, mood, and affect are within normal limits. 17:18 ECG was reviewed by the Attending Physician. Vital Signs: 12:50 BP 171 / 60; Pulse 81; Resp 19; Temp 101.2; Pulse Ox 97% ; Weight 91.63 kg; ap3 15:06 BP 160 / 71; Pulse 78; Resp 18; Temp 99.0; Pulse Ox 96% ; jh5 16:52 BP 148 / 68; Pulse 77; Resp 18; Pulse Ox 98% ; jh5 18:00 BP 144 / 72; Pulse 72; Resp 18; Temp 97.9(O); Pulse Ox 100% ; jh5 20:04 BP 155 / 72; Pulse 77; Resp 17; Temp 98.7(O); Pulse Ox 99% on R/A; lg3 05/11 00:11 BP 144 / 59; Pulse 78; Resp 17 S; Pulse Ox 100% on R/A; lg3 MDM: 05/10 12:56 Patient medically screened. kb 17:19 Data reviewed: vital signs, nurses notes. kb 17:44 Consideration of Admission/Observation Patient was admitted/placed on observation. kb Management of patient was discussed with the following: Dr Ford. Historians other than the Patient: Spouse/Significant Other: spouse. External Records Reviewed: Outpatient labs: Labs from 04/17/22 reviewed. Creatinine 2.55, increased today. Outside ED record: [facility] records from 05/04/22 reviewed. Care significantly affected by the following chronic conditions: Hypertension. Counseling: I had a detailed discussion with the patient and/or guardian regarding: the historical points, exam findings, and any diagnostic results supporting the discharge/admit diagnosis, lab results, radiology results, the need for further work-up and treatment in the hospital. 18:30 Management of patient was discussed with the following: Hospitalist: AUDELIA Prasad accepts pt kb for admission under Dr Bhagat. Discussion of test interpretation with radiology: I had a discussion with radiology regarding a test interpretation. Discussed mass in groin with Dr Landaverde, see addendum. ED course: Patient is a 81-year-old male who presents with fever, pain to right groin (at insertion site from recent cath), constipation, and low back pain for 5 days. Reports cath was done approximately 2 weeks ago. Was seen at [facility] 5 days ago for the pain to groin and discharged with diagnosis of hematoma. Reports nausea denies vomiting denies abdominal pain. Results reviewed from [facility] visit. Diagnostic work-up reveals acute on chronic renal failure, urinary retention with postvoid residual of 275, constipation. 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 Slight skin breakdown to buttocks. Patient admitted to hospitalist service.. 05/10 12:57 Order name: Blood Culture Adult (2) kb 05/10 12:57 Order name: CBC with Diff kb 05/10 12:57 Order name: CMP kb 05/10 12:57 Order name: Lactate w/ 2H reflex if indic. kb 05/10 12:57 Order name: Protime (+inr) kb 05/10 12:57 Order name: Ptt, Activated kb 05/10 12:57 Order name: Urine Microscopic Only kb 05/10 15:17 Order name: CBC with Automated Diff; Complete Time: 15:33 EDMS 05/10 15:22 Order name: Protime (+INR); Complete Time: 15:33 EDMS 05/10 15:22 Order name: PTT, Activated Partial Thromb; Complete Time: 15:33 EDMS 05/10 15:31 Order name: Lactate w/ 2H reflex if indic.; Complete Time: 15:33 EDMS 05/10 15:33 Order name: Comprehensive Metabolic Panel; Complete Time: 15:33 EDMS 05/10 16:14 Order name: Urine Dipstick-Ancillary; Complete Time: 16:31 EDMS 05/10 16:18 Order name: Urine Microscopic Only; Complete Time: 16:31 EDMS 05/10 12:57 Order name: Chest Single View XRAY kb 05/10 12:57 Order name: US LE Artery Uni Ltd kb 05/10 12:57 Order name: US Extremity Venous Unilateral Ltd kb 05/10 13:57 Order name: US; Complete Time: 13:59 EDMS 05/10 13:59 Order name: US; Complete Time: 14:00 EDMS 05/10 14:03 Order name: RAD; Complete Time: 14:12 EDMS 05/10 16:31 Order name: COVID-19/FLU A+B kb 05/10 16:37 Order name: CT Abd/Pelvis - Without Contrast kb 05/10 17:26 Order name: COVID-19/FLU A+B; Complete Time: 17:35 EDMS 05/10 17:57 Order name: CT; Complete Time: 18:29 EDMS 05/10 18:46 Order name: Urine Culture la1 05/10 22:46 Order name: Glucose, Ancillary Testing EDMS 05/11 00:28 Order name: Glucose, Ancillary Testing EDDE 05/10 12:57 Order name: EKG; Complete Time: 12:58 kb 05/10 12:57 Order name: Cardiac monitoring; Complete Time: 14:34 kb 05/10 12:57 Order name: EKG - Nurse/Tech; Complete Time: 15:17 kb 05/10 12:57 Order name: IV Saline Lock - Large Bore; Complete Time: 15:06 kb 05/10 12:57 Order name: Labs collected and sent; Complete Time: 15:06 kb 05/10 12:57 Order name: O2 Per Protocol; Complete Time: 14:34 kb 05/10 12:57 Order name: O2 Sat Monitoring; Complete Time: 14:34 kb 05/10 12:57 Order name: Urine Dipstick-Ancillary (obtain specimen); Complete Time: 16:03 kb 05/10 12:57 Order name: Vital Signs; Complete Time: 15:06 kb 05/10 16:44 Order name: Bladder Scanner: PVR; Complete Time: 17:12 kb 05/10 18:04 Order name: Gloria; Complete Time: 19:04 kb EC:18 Rate is 76 beats/min. Rhythm is regular. QRS [place] is Normal. LA interval is normal at kb 140 msec. QRS interval is normal at 134 msec. QT interval is normal at 438 msec. Administered Medications: 14:45 Drug: Tylenol 1000 mg Route: PO; jh5 20:08 Follow up: Response: No adverse reaction; Temperature is decreased lg3 20:03 Drug: Cefepime 1 grams Route: IVPB; Rate: 200 ml/hr; Infused Over: 30 mins; Site: right lg3 antecubital; 20:21 Follow up: Response: No adverse reaction; IV Status: Completed infusion; IV Intake: lg3 100ml 20:45 Drug: vancoMYCIN 1 grams Route: IVPB; Infused Over: 2 hrs; Site: right antecubital; lg3 Disposition Summary: 05/10/22 18:40 Hospitalization Ordered Hospitalization Status: Inpatient Admission kb Provider: Isreal Bhagat Condition: Stable kb Problem: new kb Symptoms: are unchanged kb Bed/Room Type: Standard kb Location: Telemetry/MedSurg (Inpatient)(05/10/22 23:50) cg Room Assignment: 204(05/10/22 23:50) Diagnosis - Fever, unspecified kb - Acute kidney failure, unspecified kb - Constipation kb - Retention of urine, unspecified kb Forms: - Medication Reconciliation Form kb - SBAR form kb Addendum: 05/13/2022 08:37 Co-signature as Attending Physician, Julio Ford MD. b s3 Signatures: Dispatcher [employer] EDDE Zoraida Christensen FNP-C FNP-Ckb Osmar De Luna FNP-C FNP-Cla1 Sofia Carroll RN RN cg Kelly Hanley RN RN ap3 Carley Warner RN RN lg3 Alem May RN RN jh5 Julio Ford MD MD bs3 Corrections: (The following items were deleted from the chart) 05/10 17:44 17:18 Constitutional: This is a well developed, well nourished patient who is awake, kb alert, and in no acute distress. Head/Face: Normocephalic, atraumatic. ENT: Moist Mucous membranes Cardiovascular: Regular rate and rhythm with a normal S1 and S2. No gallops, murmurs, or rubs. No pulse deficits. Respiratory: Respirations even and unlabored. No increased work of breathing. Talking in full sentences Abdomen/GI: Soft, non-tender. No distention Skin: Warm, dry with normal turgor. Normal color. MS/ Extremity: Pulses equal, no cyanosis. Neurovascular intact. Full, normal range of motion. Neuro: Awake and alert, GCS 15, oriented to person, place, time, and situation. Moves all extremities. Normal gait. Psych: Awake, alert, with orientation to person, place and time. Behavior, mood, and affect are within normal limits. kb 17:55 17:53 Abdomen/GI: Positive for abdominal pain, nausea, Negative for vomiting, diarrhea, kb constipation, kb 17:58 17:54 The patient has been recently seen by a physician: aby 19:07 18:40 Telemetry/MedSurg (Inpatient) [facility] 19:07 18:40 cg 23:50 19:07 [facility] ER HOLD cg cg 23:50 19:07 ERHOLD- cg cg
[2022-05-10] MEDS ORDERED: NA CHLORIDE 0.9% 100 ML ONE (19:57)
[2022-05-10] MEDS ORDERED: CEFEPIME 1 GM/VIAL ONE (19:57)
[2022-05-10] MEDS ORDERED: NA CHLORIDE 0.9% 250 ML ONE (20:15)
[2022-05-10] MEDS ORDERED: VANCOMYCIN 1 GM/VIAL ONE (20:15)
[2022-05-10] MEDS: VANCOMYCIN 1 GM in NA CHLORIDE 0.9% 250 ML IVPB SCH ×2 (20:55→21:00)
[2022-05-10] MEDS ORDERED: CEFEPIME 1 GM in NA CHLORIDE 0.9% 100 ML IV SCH (21:00)
[2022-05-10] MEDS ORDERED: NA CHLORIDE 0.9% 1,000 ML IV SCH (21:00)
[2022-05-10] MEDS: INSULIN -REGULAR HUMAN 50 UNIT/0.5 ML ML SQ SCH (21:00)
[2022-05-10] MEDS: HEPARIN 5000 UNIT/ML 1 ML VIAL SQ SCH (21:00)
[2022-05-10] MEDS ORDERED: VANCOMYCIN 500 MG in NA CHLORIDE 0.9% 100 ML IVPB ONE (22:00)
[2022-05-10] MEDS ORDERED: NA CHLORIDE 0.9% 1,000 ML ONE (22:01)
[2022-05-10] MEDS ORDERED: HEPARIN 5000 UNIT/ML 1 ML VIAL ONE (22:01)
[2022-05-10] MEDS ORDERED: D10W 250 ML IV ONE (22:47)
--- NOTE | 2022-05-10 22:47 | P.HP ---
Certification for Inpatient Patient admitted to: Inpatient With expected LOS: >2 Midnights Patient will require the following post-hospital care: None Practitioner: I am a practitioner with admitting privileges, knowledge of patient current condition, hospital course, and medical plan of care. Services: Services provided to patient in accordance with Admission requirements found in Title 42 Section 412.3 of the Code of Federal Regulations Patient History Date of Service: 05/10/22 Reason for admission: Sepsis, acute renal failure History of Present Illness: 81-year-old male with history of CKD 4, hap-jlrztbo-amonhaoto diabetes, hypertension, hyperlipidemia, psoriasis presented to the emergency department for fever, right lower extremity pain, back pain. He was evaluated in the emergency department his labs were significant for leukocytosis with a white blood cell count of 17.9 hemoglobin 9.2 hematocrit 28.4 acute renal failure with creatinine of 4.54, GFR 12 last GFR performed late last month was 24 lactic acid 1.6. Patient had recent right lower extremity angiogram performed on 04/20/2022 which showed mild PAD, patient developed a postoperative hematoma to the right groin/thigh area. His chest x-ray is unremarkable no hemodynamically significant arterial stenosis was identified in the right lower extremity by ultrasound, venous ultrasound was performed which revealed no DVT in the right lower extremity, hypoechoic fluid collection in the right groin just anterior to the right common femoral artery and vein. It could be from a prior vascular access procedure. No flow identified to suggest presence of a pseudoaneurysm. CT abdomen pelvis was then performed IV contrast which showed no acute intra- abdominal or pelvic findings. Normal appendix radiology doubts hypoechoic structure ventral to the right common femoral artery and vein are a source of infection more likely hematoma. Patient does report a recent dental procedure approximately 2 weeks ago as well as some erythema to the areas of psoriasis he previously had on his lower back/buttocks area. He was covered with broad- spectrum antibiotics vancomycin/cefepime, meets criteria for severe sepsis given worsening renal function in conjunction with fever, suspected cellulitis. Will admit for further evaluation and management. Allergies NSAIDS (Non-Steroidal Anti-Inflamma Adverse Reaction (Verified 04/17/22 08:47) Kidney disease Home Medications: Allopurinol 300 mg PO DAILY 04/17/22 Clonidine HCl [Catapres*] 0.2 mg PO BID 04/17/22 Furosemide [Lasix] 40 mg PO BEDTIME 04/17/22 Glimepiride 4 mg PO DAILY 04/17/22 Hydralazine HCl 50 mg PO BID 04/17/22 Losartan Potassium 100 mg PO DAILY 04/17/22 Montelukast [Singulair*] 10 mg PO BEDTIME 04/17/22 Multivitamin 1 tab PO DAILY 04/17/22 Zolpidem Tartrate [Ambien] 10 mg PO BEDTIME 04/17/22 hydroCHLOROthiazide [Hydrodiuril] 25 mg PO DAILY 04/17/22 - Past Medical/Surgical History -: CKD 4 -: Qyu-rkbiaev-zuorglkxl diabetes -: Hypertension -: Hyperlipidemia -: Psoriasis -: None Psychosocial/ Personal History: Patient was at home with his sister - Family History Father -: Heart disease Mother -: Heart disease - Social History Smoking Status: Never smoker Alcohol use: No CD- Drugs: No Caffeine use: No Place of Residence: Home Review of Systems 10-point ROS is otherwise unremarkable General: Fever, Chills Gastrointestinal: Constipation Musculoskeletal: Back Pain Physical Examination - Physical Exam General: Alert, In no apparent distress, Oriented x3 HEENT: Atraumatic, PERRLA, Mucous membr. moist/pink, EOMI, Sclerae nonicteric Neck: Supple, 2+ carotid pulse no bruit, No LAD, Without JVD or thyroid abnorma lity Respiratory: Clear to auscultation bilaterally, Normal air movement Cardiovascular: Regular rate/rhythm, Normal S1 S2 Capillary refill: <2 Seconds Gastrointestinal: Normal bowel sounds, No tenderness Musculoskeletal: No tenderness Integumentary: No rashes Neurological: Normal speech, Normal strength at 5/5 x4 extr, Normal tone, Normal affect - Studies Laboratory Data (last 24 hrs) 05/10/22 15:00: PT 12.5, INR 1.14, APTT 30.4 05/10/22 15:00: Sodium 132 L, Potassium 4.4, BUN 73 H, Creatinine 4.54 H, Glucose 51 L, Total Bilirubin 0.4, AST 24, ALT 19, Alkaline Phosphatase 80 05/10/22 15:00: WBC 17.90 H, Hgb 9.2 L, Hct 28.4 L, Plt Count 200 Assessment and Plan - Plan Assessment: Severe sepsis secondary to cellulitis with underlying psoriasis of the back/buttocks, rule out other sources Acute renal failure superimposed on CKD 4 Urinary retention Diabetes mellitus type 6dia-[id number]-fnfpraoty with hypoglycemia Hypertension Hyperlipidemia Plan: Severe sepsis secondary to cellulitis with underlying psoriasis of the back/buttocks, rule out other sources No other obvious source of infection identified, urinalysis negative, chest x- ray unremarkable, CT abdomen pelvis without IV contrast negative for signs of infection. Small hematoma in the right groin area radiology doubts source of infection. Blood cultures obtained started on antibiotics vancomycin/cefepime. Patient did have recent dental procedure as well, echocardiogram ordered. ID consulted. Acute renal failure superimposed on CKD 4 Patient's nephrology group consulted, renal ultrasound ordered. PVR was 250, Castro catheter inserted. Urinary retention 250 cc PVR, Castro catheter placed in ED. Diabetes mellitus type 4voh-qsmwvuv-lrlucwbxm with hypoglycemia Hold oral antidiabetic agents, given D10 in ED. Hypertension Reconcile home medications, may need dose adjustment from renal standpoint. Hyperlipidemia Obtain CK, restart statin as appropriate. DVT PPX: Heparin Code status: Full Discharge Plan: Home Plan to discharge in: 72 Hours - Advance Directives Does patient have a Living Will: No Does patient have a Durable POA for Healthcare: No - Code Status/Comfort Care Code Status Assessed: Yes (Full code) Critical Care: No Time Spent Managing Pts Care (In Minutes): 70
[2022-05-10] MEDS: DEXTROSE 10%-WATER 250 ML IV SCH (23:07)
[2022-05-11 00:06] VITALS: BMI 28.1
[2022-05-11] MEDS: ACETAMINOPHEN 325 MG TABLET PO PRN ×3 (02:50→21:32)
[2022-05-11] MEDS ORDERED: D5 0.45 NS 1,000 ML IV SCH (03:00)
[2022-05-11 03:39] LABS: Absolute Lymphocytes (CBC) 0.5 K/uL (0.7-4.9); Hematocrit 26.6 % (39.6-49.0); Lymphocytes % 3.3 % (15.3-44.8); MCV 97.1 fL (80-100); MPV 9.3 fL (7.6-11.3); RBC Red Blood Cell Count 2.74 M/uL (4.33-5.43)
[2022-05-11 04:00] LABS: Magnesium 2.7 mg/dL (1.6-2.4); Potassium 4.2 mmol/L (3.5-5.1); Thyroid Stimulating Hormone 0.454 uIU/mL (0.358-3.740); Uric Acid 5.6 mg/dL (3.5-7.2)
[2022-05-11] MEDS ORDERED: ACETAMINOPHEN 500 MG TAB PO ONE (04:37)
[2022-05-11] MEDS: DEXTROSE 10%-WATER 250 ML IV SCH (04:42)
[2022-05-11] MEDS: D5 0.45 NS 1,000 ML IV SCH ×2 (06:00→21:42)
--- NOTE | 2022-05-11 06:42 | P.PN ---
Date of Service: 05/11/22 Subjective: Feeling better this morning No new/worsening of symptoms Received steroid injection and was taking Solu-Medrol Dosepak and Bactrim; started on 05/05 Pain improving ROS: 10 point ROS as noted above, otherwise negative Physical exam GEN: Alert, oriented, NAD HEENT: Normal conjunctiva, sclera anicteric CV: Regular rate and rhythm, no edema Pulm: Nonlabored respirations on room air ABD: Soft, nontender, nondistended Integumentary: Psoriatic rash noted on bilateral lower extremities and lower back, lower back with surrounding erythema Neuro: Normal speech, normal affect Problem List Severe sepsis secondary to cellulitis with underlying psoriasis of the back/buttocks, rule out other sources MADHURI superimposed on CKD 4 Urinary retention, new Diabetes mellitus type 4shh-qprktpz-uzlkhzxax with hypoglycemia Hypertension Hyperlipidemia Severe sepsis secondary to cellulitis with underlying psoriasis of the back/buttocks no other clear source of infection Continue empiric antibiotics ID consulted Recent dental procedure, obtain echocardiogram to rule out endocarditis Leukocytosis multifactorial, infection/inflammation, has been taking steroids Acute renal failure superimposed on CKD 4 Urinary retention Possibly multifactorial, patient noted to have some urinary retention in the ED which is new for the patient. Recently receiving Bactrim, which may have played a role, some prerenal component: Has been eating less than half of his usual for the last few days Patient's nephrology group consulted, renal ultrasound ordered. PVR was 250, Fo scottie catheter inserted in the ED Diabetes mellitus type 8woe-xhlvexz-ulkombzbo with hypoglycemia Hold oral antidiabetic agents, given D10 in ED. Hypertension Reconcile home medications, may need dose adjustment from renal standpoint. Hyperlipidemia Obtain CK, restart statin as appropriate. DVT PPX: Heparin Code status: Full Dispo: home, ~2-3 days
[2022-05-11] MEDS: INSULIN -REGULAR HUMAN 50 UNIT/0.5 ML ML SQ SCH ×4 (07:30→21:00)
--- NOTE | 2022-05-11 08:34 | P.CNS ---
Date of Consult: 05/11/22 Chief Complaint: Sepsis, acute renal failure History of Present Illness: 81-year-old male with history of CKD 4, ypv-orbgvfp-xuwxcklng diabetes, hypertension, hyperlipidemia, psoriasis presented to the emergency department for fever, right lower extremity pain, back pain. He was evaluated in the emergency department his labs were significant for leukocytosis with a white blood cell count of 17.9 hemoglobin 9.2 hematocrit 28.4 acute renal failure with creatinine of 4.54, GFR 12 last GFR performed late last month was 24 lactic acid 1.6. Patient had recent right lower extremity angiogram performed on 04/20/2022 which showed mild PAD, patient developed a postoperative hematoma to the right groin/thigh area. His chest x-ray is unremarkable no hemodynamically significant arterial stenosis was identified in the right lower extremity by ultrasound, venous ultrasound was performed which revealed no DVT in the right lower extremity, hypoechoic fluid collection in the right groin just anterior to the right common femoral artery and vein. It could be from a prior vascular access procedure. No flow identified to suggest presence of a pseudoaneurysm. CT abdomen pelvis was then performed IV contrast which showed no acute intra- abdominal or pelvic findings. Normal appendix radiology doubts hypoechoic structure ventral to the right common femoral artery and vein are a source of infection more likely hematoma. Patient does report a recent dental procedure approximately 2 weeks ago as well as some erythema to the areas of psoriasis he previously had on his lower back/buttocks area. He was covered with broad- spectrum antibiotics vancomycin/cefepime, meets criteria for severe sepsis given worsening renal function in conjunction with fever, suspected cellulitis. Will admit for further evaluation and management. ID has been consulted for IV antibiotics recommendations and management for cellulitis Allergies NSAIDS (Non-Steroidal Anti-Inflamma Adverse Reaction (Verified 04/17/22 08:47) Kidney disease Home Medications: Allopurinol 300 mg PO DAILY 04/17/22 Clonidine HCl [Catapres*] 0.2 mg PO BID 04/17/22 Furosemide [Lasix] 40 mg PO DAILY 04/17/22 Glimepiride 4 mg PO BID 04/17/22 Hydralazine HCl 50 mg PO BID 04/17/22 Losartan Potassium 100 mg PO DAILY 04/17/22 hydroCHLOROthiazide [Hydrodiuril] 25 mg PO DAILY 04/17/22 Amlodipine [Norvasc*] 1 tab PO DAILY 05/11/22 Atorvastatin Calcium [Lipitor*] 1 tab PO DAILY 05/11/22 - Past Medical/Surgical History -: CKD 4 -: Oqz-msfbdwe-kgculifmj diabetes -: Hypertension -: Hyperlipidemia -: Psoriasis -: None Psychosocial/ Personal History: Patient was at home with his sister - Family History Father Medical History: Heart disease Mother Medical History: Heart disease - Social History Alcohol use: No CD- Drugs: No Caffeine use: No Place of Residence: Home Review of Systems 10-point ROS is otherwise unremarkable General: Chills Gastrointestinal: Constipation Integumentary: As per HPI Physical Examination Temp Pulse Resp BP Pulse Ox 100 F 98 H 18 148/67 H 97 05/11/22 05:44 05/11/22 04:00 05/11/22 04:00 05/11/22 04:00 05/11/22 04:00 General: Alert, In no apparent distress, Oriented x3 Neck: Supple Respiratory: Clear to auscultation bilaterally Cardiovascular: No edema, Normal S1 S2 Gastrointestinal: Normal bowel sounds Musculoskeletal: No swelling, No tenderness Integumentary: Rash(es) (generalized psoriasis), Skin lesion (generalized psoriasis and cellulitis), Erythema Neurological: Normal gait, Normal speech, Normal tone, Normal affect Laboratory Data (last 24 hrs) 05/10/22 15:00: PT 12.5, INR 1.14, APTT 30.4 05/10/22 15:00: Sodium 132 L, Potassium 4.4, BUN 73 H, Creatinine 4.54 H, Glucose 51 L, Total Bilirubin 0.4, AST 24, ALT 19, Alkaline Phosphatase 80 05/10/22 15:00: WBC 17.90 H, Hgb 9.2 L, Hct 28.4 L, Plt Count 200 Imagings Data: RAD - Chest Single View - 05/10/2022 FINDINGS: Lines: None. Lungs: No evidence of edema or pneumonia. Pleural: No significant pleural effusions or pneumothorax. Cardiac: The heart size is within normal limits. Mediastinum: Within normal limits. Bones: No acute fractures. Other: None IMPRESSION: No acute cardiopulmonary disease. US - Lower Extremity Artery Uni Ltd - 05/10/2022 FINDINGS: Color Doppler, grayscale, and spectral analysis was performed. The common femoral, superficial femoral and popliteal arteries demonstrate triphasic waveforms The the dorsalis pedis artery has a triphasic waveform. The posterior tibial artery has a biphasic waveform. IMPRESSION: No hemodynamically significant arterial stenosis identified in the right lower extremity. US - Extremity Venous Uni Ltd - 05/10/2022 FINDINGS: Normal compressibility, flow augmentation, phasic flow and spontaneous flow is identified in the right lower extremity deep venous system. No intraluminal filling defects seen. Hypoechoic structure at located just anterior to the right common femoral artery and common femoral vein in the groin measures 4.7 x 1.4 x 1.8 cm. No flow identified. Presumably reactive right groin lymph nodes noted. IMPRESSION: No DVT in the right lower extremity. Hypoechoic fluid collection in the right groin just anterior to the right common femoral artery and vein. It could be from a prior vascular access procedure. No flow identified to suggest the presence of a pseudoaneurysm. CTAbdomen Pelvis Wo Contrast - 05/10/2022 4.6 cm x 1.9 cm structure ventral to the right common femoral artery and common femoral vein corresponding with the finding on the same-day ultrasound. This has a area of hyperattenuation likely reflecting hemorrhage or sequela of prior hemorrhage. The patient reportedly had a prior right inguinal vascular access procedure and this may be sequela of that procedure. Reference ultrasound for additional findings. - Problems (1) Cellulitis Current Visit: Yes Status: Acute Plan: Cellulitis with underlying psoriasis of the back/buttocks Cultures: - 05/10 UC: Pending - 05/10 BC: Pending Antibiotics: - Current on IV Cefepime and Vancomycin (05/10- ) Recommendations: - Continue IV Cefepime and Vancomycin - ID will recommend antibiotics drug of choice when cultures are available Conclusions/Impression: - Severe sepsis secondary to cellulitis with underlying psoriasis of the back/buttocks: Continue IV antibiotics - Acute renal failure superimposed on CKD 4 - Urinary retention - Diabetes mellitus type 2 - Hyperlipidemia - CKD 4 - Hypertension - Hyperlipidemia - Psoriasis - PAD - Anemia of chronic disease ID will closely monitor the patient for signs of infection with fever and WBC trends Case has been discussed with Dr. Argueta N Thank you Dr. Persaud for consultation
--- NOTE | 2022-05-11 08:46 | RAD REPORT ---
EXAM DESCRIPTION: US - Renal Ultrasound-Complete - 05/11/2022 12:33 am CLINICAL HISTORY: ARF COMPARISON: Renal Ultrasound-Complete dated 07/12/2017 FINDINGS: Both kidneys are normal in size, shape and echotexture. The right kidney measures 9.0 x 5.4 x 3.8 cm. No hydronephrosis, focal mass or perinephric fluid. The left kidney measures 9.8 x 5.4 x 4.0 cm. 12 mm benign cyst. No hydronephrosis, focal mass or kristian nephric fluid. The urinary bladder is incompletely distended without gross abnormality seen. IMPRESSION: Benign left renal cysts, otherwise negative study.
[2022-05-11] MEDS: HEPARIN 5000 UNIT/ML 1 ML VIAL SQ SCH ×2 (08:54→21:42)
[2022-05-11] MEDS: CEFEPIME 1 GM in NA CHLORIDE 0.9% 100 ML IV SCH (08:54)
[2022-05-11] MEDS: VANCOMYCIN 1.5 GM in NA CHLORIDE 0.9% 500 ML IVPB SCH (10:05)
--- NOTE | 2022-05-11 11:53 | EKG ---
Test Date: 2022-05-10 Test Time: 15:15:29 Padded Box Sewer: SALUD MEASUREMENT RESULTS: Intervals: Rate: 76 CA: 140 QRSD: 134 QT: 390 QTc: 438 Sapphire: P: CA: 140 QRS: 45 T: 61 INTERPRETIVE STATEMENTS: Normal sinus rhythm Right bundle branch block Abnormal ECG Compared to ECG 04/17/2022 09:01:56 Uncertain supraventricular rhythm no longer present Electronically Signed On 05-11-22 11:51:30 [employer] PROFESSOR by Augustin Snow
[2022-05-11] MEDS ORDERED: DEXTROSE 10%-WATER 500 ML IV ONE (12:56)
--- NOTE | 2022-05-11 18:41 | P.CNS ---
Date of Consult: 05/11/22 Reason for Consult: MADHURI/ CKD Requesting Physician: Isreal Bhagat Chief Complaint: Sepsis, acute renal failure History of Present Illness: 81-year-old male with history of CKD 4, glt-hkspdpn-gbxcmfvng diabetes, hypertension, hyperlipidemia, psoriasis presented to the emergency department for fever, right lower extremity pain, back pain. He was evaluated in the emergency department his labs were significant for leukocytosis with a white blood cell count of 17.9 hemoglobin 9.2 hematocrit 28.4 acute renal failure with creatinine of 4.54, GFR 12 last GFR performed late last month was 24 lactic acid 1.6. Patient had recent right lower extremity angiogram performed on 04/20/2022 which showed mild PAD, patient developed a postoperative hematoma to the right groin/thigh area. His chest x-ray is unremarkable no hemodynamically sig nificant arterial stenosis was identified in the right lower extremity by ultrasound, venous ultrasound was performed which revealed no DVT in the right lower extremity, hypoechoic fluid collection in the right groin just anterior to the right common femoral artery and vein. It could be from a prior vascular access procedure. No flow identified to suggest presence of a pseudoaneurysm. CT abdomen pelvis was then performed IV contrast which showed no acute intra- abdominal or pelvic findings. Normal appendix radiology doubts hypoechoic structure ventral to the right common femoral artery and vein are a source of infection more likely hematoma. Patient does report a recent dental procedure approximately 2 weeks ago as well as some erythema to the areas of psoriasis he previously had on his lower back/buttocks area. He was covered with broad- spectrum antibiotics vancomycin/cefepime, meets criteria for severe sepsis given worsening renal function in conjunction with fever, suspected cellulitis. Will admit for further evaluation and management. 17:54 This 81 yrs old Male presents to ER via Wheelchair with complaints of Fever, kb Urinary Problem, Leg weakness. 17:54 The patient reports fever. kb 17:55 Onset: The symptoms/episode began/occurred 5 day(s) ago. Modifying factors: there are kb no obvious modifying factors. Associated signs and symptoms: Pertinent posi tives: abdominal pain, nausea. Severity of symptoms: At their worst the symptoms were mild moderate in the emergency department the symptoms are unchanged. The patient has not experienced similar symptoms in the past. The patient has been recently seen by a physician:. Risk factors for CKD: HTN, DM and former NSAIDs (Meloxicam & Aleve) Allergies NSAIDS (Non-Steroidal Anti-Inflamma Adverse Reaction (Verified 04/17/22 08:47) Kidney disease Home medications list reviewed: Yes Home Medications: Allopurinol 300 mg PO DAILY 04/17/22 Clonidine HCl [Catapres*] 0.2 mg PO BID 04/17/22 Furosemide [Lasix] 40 mg PO DAILY 04/17/22 Glimepiride 4 mg PO BID 04/17/22 Hydralazine HCl 50 mg PO BID 04/17/22 Losartan Potassium 100 mg PO DAILY 04/17/22 hydroCHLOROthiazide [Hydrodiuril] 25 mg PO DAILY 04/17/22 Amlodipine [Norvasc*] 1 tab PO DAILY 05/11/22 Atorvastatin Calcium [Lipitor*] 1 tab PO DAILY 05/11/22 - Past Medical/Surgical History Diabetic: Yes -: CKD 4 with proteinuria (Dr. Veloz) -: DM II Dx 2007 -: Hypertension Dx -: Hyperlipidemia -: Anemia -: Psoriasis -: None Psychosocial/ Personal History: Patient was at home with his sister - Family History Father Medical History: Heart disease Mother Medical History: Heart disease - Social History Alcohol use: No CD- Drugs: No Caffeine use: No Place of Residence: Home Review of Systems 10-point ROS is otherwise unremarkable General: Weakness Physical Examination Temp Pulse Resp BP Pulse Ox 101.2 F H 73 16 154/70 H 98 05/11/22 16:00 05/11/22 16:00 05/11/22 16:00 05/11/22 16:00 05/11/22 16:00 General: Oriented x3, Cooperative HEENT: Atraumatic Neck: Supple Respiratory: Normal air movement Cardiovascular: No edema, Regular rate/rhythm Gastrointestinal: Soft and benign, Non-distended Musculoskeletal: No clubbing, No contractures Integumentary: No rashes, No cyanosis Neurological: Normal speech Blood work reviewed in the chart. Imagings Data: EXAM DESCRIPTION: US - Renal Ultrasound-Complete - 05/11/2022 12:33 am CLINICAL HISTORY: ARF COMPARISON: Renal Ultrasound-Complete dated 07/12/2017 FINDINGS: Both kidneys are normal in size, shape and echotexture. The right kidney measures 9.0 x 5.4 x 3.8 cm. No hydronephrosis, focal mass or perinephric fluid. The left kidney measures 9.8 x 5.4 x 4.0 cm. 12 mm benign cyst. No hydronephrosis, focal mass or perinephric fluid. The urinary bladder is incompletely distended without gross abnormality seen. IMPRESSION: Benign left renal cysts, otherwise negative study. EXAM DESCRIPTION: CTAbdomen Pelvis Wo Contrast - 05/10/2022 5:42 pm CLINICAL HISTORY: ABD PAIN COMPARISON: None TECHNIQUE: CT of the abdomen and pelvis was performed. All CT scans are performed using dose optimization technique as appropriate and may include automated exposure control or mA/KV adjustment according to patient size. FINDINGS: Lower chest: Hiatal hernia. Circumferential thickened distal esophagus. Coronary artery calcifications. Trace pericardial effusion. Mild cardiomegaly. Liver: No acute abnormality or suspicious lesions. Biliary: No biliary ductal dilatation. Stomach: No significant focal abnormality. Duodenum: No significant focal abnormality. Pancreas: No significant abnormality. Spleen: No significant abnormality. Adrenal: No suspicious lesions. Kidney/ureter: No hydronephrosis. Punctate stone in the upper pole right kidney. Too small to characterize and/or benign appearing renal lesions are noted. Mild nonspecific perinephric stranding. Retroperitoneum: No retroperitoneal adenopathy. Vascular: No aneurysm. Atherosclerosis. Bowel: Moderate colonic stool.. Normal appendix. Peritoneum: No ascites or free air. Bladder: Grossly unremarkable. Reproductive: No adenopathy or masses Bones: No acute fracture. Multilevel degenerative changes are present in the spine. Other: n/a IMPRESSION: No acute intra-abdominal or pelvic finding. Nonobstructive right nephrolithiasis. Normal appendix. Possible constipation. ADDENDUM: 4.6 cm x 1.9 cm structure ventral to the right common femoral artery and common femoral vein corresponding with the finding on the same-day ultrasound. This has a area of hyperattenuation likely reflecting hemorrhage or sequela of prior hemorrhage. The patient reportedly had a prior right inguinal vascular access procedure and this may be sequela of that procedure. Reference ultrasound for additional findings EXAM DESCRIPTION: RAD - Chest Single View - 05/10/2022 1:52 pm CLINICAL HISTORY: FEVER COMPARISON: Chest Pa And Lat (2 Views) dated 04/17/2022 FINDINGS: Lines: None. Lungs: No evidence of edema or pneumonia. Pleural: No significant pleural effusions or pneumothorax. Cardiac: The heart size is within normal limits. Mediastinum: Within normal limits. Bones: No acute fractures. Other: None IMPRESSION: No acute cardiopulmonary disease. Doppler Renal US 01/16/20:Negative MODE. Right kidney 10.1cm. Left 10.2cm. Simple right renal cyst. Bladder US 01/16/20:No mass. PVR 14ml. Renal US 07/12/17:Right kidney 9cm; Left 10 cm. Right renal cyst. No hydronephrosis. Conclusions/Impression: Stage III MADHURI in the setting of sepsis & hypovolemia CKD IV with proteinuria (Baseline Cr 2.2) -No NSAIDs -Continue IVF Hyponatremia, improving -Encourage nutrition HTN with CKD -Start Amlodipine 5mg BID -Start Hydralazine 25mg BID DM II with CKD -RISS Anemia in chronic illness -Monitor H&H -Retacrit X1 Thank you kindly for the consultation
[2022-05-11] MEDS ORDERED: EPOETIN ALFA-EPBX 10,000 UNIT/ML VIAL SQ ONE (19:37)
[2022-05-11] MEDS: AMINO ACIDS/PROTEIN HYDROLYS 30 ML LIQUID.PKT PO SCH (21:00)
[2022-05-11] MEDS ORDERED: EPOETIN ALFA-EPBX 10,000 UNIT/ML VIAL ONE (21:16)
[2022-05-11] MEDS: HYDRALAZINE HCL 25 MG TABLET PO SCH (21:33)
[2022-05-11] MEDS: AMLODIPINE 5 MG TAB PO SCH (21:42)
[2022-05-12] MEDS: D5 0.45 NS 1,000 ML IV SCH ×4 (02:00→23:01)
[2022-05-12] MEDS: ONDANSETRON 4 MG/2 ML VIAL IV PRN ×2 (03:07→10:57)
[2022-05-12] MEDS: ACETAMINOPHEN 325 MG TABLET PO PRN ×3 (03:08→20:34)
[2022-05-12] MEDS ORDERED: SODIUM CHLORIDE 0.9% 10ML INJ IV PRN ×2 (05:18→10:40)
[2022-05-12] MEDS ORDERED: PANTOPRAZOLE 40 MG INJ IVP ONE (05:18)
[2022-05-12 06:23] LABS: Absolute Lymphocytes (CBC) 1.6 K/uL (0.7-4.9); Hematocrit 26.8 % (39.6-49.0); Lymphocytes % 7.6 % (15.3-44.8); MCV 97.4 fL (80-100); RBC Red Blood Cell Count 2.75 M/uL (4.33-5.43)
[2022-05-12 06:34] LABS: Magnesium 2.4 mg/dL (1.6-2.4); Potassium 4.1 mmol/L (3.5-5.1)
--- NOTE | 2022-05-12 06:47 | P.PN ---
Date of Service: 05/12/22 Subjective: reportedly afib overnight, new onset febrile as well pt with nausea ROS: 10 point ROS as noted above, otherwise negative Physical exam GEN: Alert, oriented, fatigued appearing HEENT: Normal conjunctiva, sclera anicteric CV: Regular rate and rhythm, no edema Pulm: Nonlabored respirations on room air ABD: Soft, nontender, nondistended Integumentary: Psoriatic rash noted on bilateral lower extremities and lower back, lower back with surrounding erythema, warm, superficial ulcer on right buttock Neuro: Normal speech, normal affect Problem List Severe sepsis secondary to cellulitis with underlying psoriasis of the back/buttocks, rule out other sources MADHURI superimposed on CKD 4 Urinary retention, new Diabetes mellitus type [id number] with hypoglycemia Hypertension Hyperlipidemia Severe sepsis secondary to cellulitis with underlying psoriasis of the back/buttocks no other clear source of infection Continue empiric antibiotics ID consulted Recent dental procedure, obtain echocardiogram to rule out endocarditis Leukocytosis multifactorial, infection/inflammation, has been taking steroids Acute renal failure superimposed on CKD 4 Urinary retention Possibly multifactorial, patient noted to have some urinary retention in the ED which is new for the patient. Recently receiving Bactrim, which may have played a role, some prerenal component: Has been eating less than half of his usual for the last few days Patient's nephrology group consulted, renal ultrasound ordered. PVR was 250, Castro catheter inserted in the ED Diabetes mellitus type [id number] with hypoglycemia Hold oral antidiabetic agents, given D10 in ED. Hypertension Reconcile home medications, may need dose adjustment from renal standpoint. Hyperlipidemia Obtain CK, restart statin as appropriate. DVT PPX: Heparin Code status: Full Dispo: home, ~2-3 days
[2022-05-12] MEDS: INSULIN -REGULAR HUMAN 50 UNIT/0.5 ML ML SQ SCH ×4 (07:30→20:36)
--- NOTE | 2022-05-12 08:11 | P.PN ---
Subjective Date of Service: 05/12/22 Chief Complaint: Sepsis, acute renal failure Patient lying in bed febrile with family member at the bedside. Stated having upset stomach likely due to GERD Physical Examination - Vital Signs Temperature: 100.4 F Blood Pressure: 159/71 Pulse: 93 Respirations: 17 Pulse Ox (%): 97 - Physical Exam General: Alert, In no apparent distress, Oriented x3 Neck: Supple Respiratory: Clear to auscultation bilaterally Cardiovascular: No edema, Normal S1 S2 Gastrointestinal: Normal bowel sounds Musculoskeletal: No swelling, Tenderness Integumentary: Rash(es) (generalized psoriasis), Skin breakdown (secondary to psoriasis), Skin lesion (generalized psoriasis and cellulitis), Erythema Neurological: Normal gait, Normal speech, Normal tone, Normal affect Urinary: Castro catheter (urine yellow and clear) - Studies active medications Acetaminophen (Acetaminophen 325 Mg Tablet) 650 mg PO Q6H PRN PRN Reason: TEMP > 100' F Last Admin: 05/12/22 03:08 Dose: 650 mg Amino Acids (Amino Acids/Protein Hydrolys 30 Ml Liquid.Pkt) 30 ml PO BID [facility] Last Admin: 05/11/22 21:00 Dose: 30 ml Amlodipine Besylate (Amlodipine 5 Mg Tab) 5 mg PO BID [facility] Last Admin: 05/11/22 21:42 Dose: 5 mg Heparin Sodium (Porcine) (Heparin 5000 Unit/Ml 1 Ml Vial) 5,000 unit SQ Q12HR [facility] Last Admin: 05/11/22 21:42 Dose: 5,000 unit Hydralazine HCl (Hydralazine Hcl 25 Mg Tablet) 25 mg PO BID [facility] Last Admin: 05/11/22 21:33 Dose: 25 mg Cefepime HCl 1 gm/ Sodium (Chloride) 100 mls @ 200 mls/hr IV DAILY [facility] Last Admin: 05/11/22 08:54 Dose: 100 mls Dextrose (D10w 500 Ml Ivpb) 250 mls @ 0 mls/hr IV .Q0M [facility] Last Admin: 05/11/22 04:42 Dose: 250 mls Dextrose/Sodium Chloride (Dextrose 5% O.45% Saline) 1,000 mls @ 100 mls/hr IV .Q10H [facility] Last Admin: 05/12/22 05:58 Dose: 1,000 mls Vancomycin HCl 1.5 gm/ Sodium (Chloride) 500 mls @ 250 mls/hr IVPB Q48H [facility] Last Admin: 05/11/22 10:05 Dose: 500 mls Insulin Human Regular (Insulin -Regular Human 50 Unit/0.5 Ml Ml) 0 unit SQ ACHS [facility]; Protocol Last Admin: 05/12/22 07:30 Dose: Not Given Ondansetron HCl (Ondansetron 4 Mg/2 Ml Vial) 4 mg IV Q6HP PRN PRN Reason: NAUSEA / VOMITING Last Admin: 05/12/22 03:07 Dose: 4 mg Sodium Chloride (Flush Normal Saline 10 Ml) 10 ml IV BID [facility] Last Admin: 05/11/22 21:35 Dose: 10 ml Sodium Chloride (Sodium Chloride 0.9% 10ml Inj) 10 ml IV UD PRN PRN Reason: Diluant Microbiology Data (last 24 hrs): Microbiology 05/10/22 15:30 Blood - Blood Aerobic Blood Culture - Preliminary No growth in 24 hours. 05/10/22 15:30 Blood - Blood Anaerobic Blood Culture - Preliminary No growth in 24 hours. 05/10/22 15:00 Blood - Blood Aerobic Blood Culture - Preliminary No growth in 24 hours. 05/10/22 15:00 Blood - Blood Anaerobic Blood Culture - Preliminary No growth in 24 hours. Assessment And Plan - Current Problems (Diagnosis) (1) Cellulitis Plan: Cellulitis with underlying psoriasis of the back/buttocks Cultures: - 05/10 UC: Pending - 05/10 BC: Negative Antibiotics: - Current on IV Cefepime and Vancomycin (05/10- ) Recommendations: - Continue IV Cefepime and Vancomycin - ID will recommend antibiotics drug of choice when cultures are available - Plan - Severe sepsis secondary to cellulitis with underlying psoriasis of the back /buttocks: Continue IV antibiotics - Acute renal failure superimposed on CKD 4 - Urinary retention - Diabetes mellitus type 2 - Hyperlipidemia - CKD 4 - Hypertension - Hyperlipidemia - Psoriasis - PAD - Anemia of chronic disease ID will closely monitor the patient for signs of infection with fever and WBC trends Case has been discussed with Dr. Argueta, N
[2022-05-12] MEDS: AMINO ACIDS/PROTEIN HYDROLYS 30 ML LIQUID.PKT PO SCH ×2 (09:00→20:37)
[2022-05-12] MEDS: CEFEPIME 1 GM in NA CHLORIDE 0.9% 100 ML IV SCH (09:00)
[2022-05-12] MEDS: AMLODIPINE 5 MG TAB PO SCH ×2 (09:32→20:34)
[2022-05-12] MEDS: HYDRALAZINE HCL 25 MG TABLET PO SCH ×2 (09:32→20:34)
[2022-05-12] MEDS: HEPARIN 5000 UNIT/ML 1 ML VIAL SQ SCH ×2 (09:32→20:36)
[2022-05-12 10:38] LABS: Anisocytosis SLIGHT; Blood Morphology Comment NOTED (NOT SEEN); Platelet Estimate ADEQ
--- NOTE | 2022-05-12 10:44 | P.PN ---
(S) Pt reports some nausea this AM, but denies abdominal pain, reports feeling better. Still with low grade temp (O) Vitals reviewed in the EMR General: Oriented x3, Cooperative HEENT: Atraumatic, sclera anicteric Neck: Supple Respiratory: Normal air movement, b/l air entry Cardiovascular: No edema, Regular rate/rhythm Gastrointestinal: Soft and benign, Non-distended Musculoskeletal: No clubbing, No contractures Integumentary: No rashes, No cyanosis Neurological: Normal speech, awake, alert, non focal Labs: Blood work reviewed in the chart. Imagings Data: EXAM DESCRIPTION: US - Renal Ultrasound-Complete - 05/11/2022 12:33 am CLINICAL HISTORY: ARF COMPARISON: Renal Ultrasound-Complete dated 07/12/2017 FINDINGS: Both kidneys are normal in size, shape and echotexture. The right kidney measures 9.0 x 5.4 x 3.8 cm. No hydronephrosis, focal mass or perinephric fluid. The left kidney measures 9.8 x 5.4 x 4.0 cm. 12 mm benign cyst. No hydronephrosis, focal mass or perinephric fluid. The urinary bladder is incompletely distended without gross abnormality seen. IMPRESSION: Benign left renal cysts, otherwise negative study. EXAM DESCRIPTION: CTAbdomen Pelvis Wo Contrast - 05/10/2022 5:42 pm CLINICAL HISTORY: ABD PAIN COMPARISON: None TECHNIQUE: CT of the abdomen and pelvis was performed. All CT scans are performed using dose optimization technique as appropriate and may include automated exposure control or mA/KV adjustment according to patient size. FINDINGS: Lower chest: Hiatal hernia. Circumferential thickened distal esophagus. Coronary artery calcifications. Trace pericardial effusion. Mild cardiomegaly. Liver: No acute abnormality or suspicious lesions. Biliary: No biliary ductal dilatation. Stomach: No significant focal abnormality. Duodenum: No significant focal abnormality. Pancreas: No significant abnormality. Spleen: No significant abnormality. Adrenal: No suspicious lesions. Kidney/ureter: No hydronephrosis. Punctate stone in the upper pole right kidney. Too small to characterize and/or benign appearing renal lesions are noted. Mild nonspecific perinephric stranding. Retroperitoneum: No retroperitoneal adenopathy. Vascular: No aneurysm. Atherosclerosis. Bowel: Moderate colonic stool.. Normal appendix. Peritoneum: No ascites or free air. Bladder: Grossly unremarkable. Reproductive: No adenopathy or masses Bones: No acute fracture. Multilevel degenerative changes are present in the spine. Other: n/a IMPRESSION: No acute intra-abdominal or pelvic finding. Nonobstructive right nephrolithiasis. Normal appendix. Possible constipation. ADDENDUM: 4.6 cm x 1.9 cm structure ventral to the right common femoral artery and common femoral vein corresponding with the finding on the same-day ultrasound. This has a area of hyperattenuation likely reflecting hemorrhage or sequela of prior hemorrhage. The patient reportedly had a prior right inguinal vascular access procedure and this may be sequela of that procedure. Reference ultrasound for additional findings Doppler Renal US 01/16/20:Negative MODE. Right kidney 10.1cm. Left 10.2cm. Simple right renal cyst. Bladder US 01/16/20:No mass. PVR 14ml. Renal US 07/12/17:Right kidney 9cm; Left 10 cm. Right renal cyst. No hydronephrosis. Conclusions/Impression: A/P) Stage III ARF with presenting Cr level > 4 mg/dl in the setting of pre-renal state, diuretic use, ARB use, early sepsis, other CKD IV with proteinuria (Baseline Cr 2.2-2.5) -Cont hydration but ok to lower rate, cont to hold MODE inhibitor. Monitor lytes and sodium level as pt on S HTN with CKD -BP mod elevated despite presentation with pre-renal azotemia, cont other anti hypertensives trend. Fevers, unspecified Infectious w/u per primary team, BCx pending, dose Abx for reduced CrCl Jose Vargas MD, JESSICA
[2022-05-12] MEDS: SUCRALFATE 1GM/10ML UCUP PO SCH (20:35)
[2022-05-12] MEDS: PANTOPRAZOLE 40 MG INJ IVP SCH (20:35)
--- NOTE | 2022-05-12 21:58 | CON ---
Date of Consultation: 05/12/2022 Reason For Consultation: Atrial fibrillation. History Of Present Illness: This is an 81-year-old male with history of diabetes, chronic kidney dis ease, hypertension, and dyslipidemia who presented with fever, right lower extremity pain, and back p ain and was diagnosed with sepsis and started on antibiotics. I saw him by bedside. He is doing wel l. No palpitations. Past Medical History: As outlined above in HPI. Medications: Refer to reconciliation sheet for detailed list. Allergies: NSAIDS. Family History: No premature coronary artery disease or cancer. Social History: He does not smoke or drink. Does not use any drugs. Review of Systems: All systems reviewed and they were negative except as mentioned in HPI. Physical Examination: Vital Signs: Reviewed. Head And Neck: Pupils are equal and reactive to light. Intact eye movements. No JVD. No cervical lymphadenopathy. Neck is supple. Thyroid is not enlarged. Lungs: Clear to auscultation bilaterally. No rhonchi, wheezing, or crackles. No accessory muscle u se. Heart: Regular. No extra sounds. Abdomen: Soft, nontender. Bowel sounds positive. No organomegaly. No masses or hernia. No rigidi ty or rebound. Extremities: No clubbing or cyanosis. Intact pulses. Skin: No rashes. Neuro: Alert, awake, and oriented x3. No acute focal deficits appreciated. Investigations: BUN is 50, creatinine 2.75. Abdomen CT scan: No acute intraabdominal findings, but there is small right groin hematoma. Vascular Doppler showed no significant abnormalities. Assessment/recommendation: 1.Right groin hematoma. It is small, about 4 cm and it is not changing in size. No further workup is needed. Continue to monitor. 2.Atrial fibrillation, reported by staff. He appears to be in sinus rhythm. Now his heart rate is controlled. Monitor on telemetry and start him on metoprolol extended release 25 mg daily. SR/MODL Voice ID: [id number] Report ID: [id number]
[2022-05-13] MEDS ORDERED: METOPROLOL XL 25 MG TAB PO SCH (06:00)
--- NOTE | 2022-05-13 06:24 | P.PN ---
Date of Service: 05/13/22 Subjective: feels somewhat improved tolerating diet no new/worsening symptoms legs and back are less erythematous ROS: 10 point ROS as noted above, otherwise negative Physical exam GEN: Alert, oriented, NAD HEENT: Normal conjunctiva, sclera anicteric CV: Regular rate and rhythm, no edema Pulm: Nonlabored respirations on room air ABD: Soft, nontender, nondistended Integumentary: Psoriatic rash noted on bilateral lower extremities and lower back, lower back with surrounding erythema, warm, superficial ulcer on right buttock Neuro: Normal speech, normal affect Problem List Severe sepsis secondary to cellulitis with underlying psoriasis of the back/buttocks, rule out other sources MADHURI superimposed on CKD 4 Urinary retention, new Diabetes mellitus type [id number] with hypoglycemia Hypertension Hyperlipidemia Severe sepsis secondary to cellulitis with underlying psoriasis of the back/buttocks no other clear source of infection Continue empiric antibiotics ID consulted Recent dental procedure, obtain echocardiogram to rule out endocarditis Leukocytosis multifactorial, infection/inflammation, has been taking steroidsj possibly was developing a component of erythrodermic psoriasis, and improving now - less red, less skin % involvement did recently take systemic steroids and bactrim - both potential causes / set off eacerbation Acute renal failure superimposed on CKD 4 Urinary retention Possibly multifactorial, patient noted to have some urinary retention in the ED which is new for the patient. Recently receiving Bactrim, which may have played a role, some prerenal component: Has been eating less than half of his usual for the last few days Patient's nephrology group consulted, renal ultrasound ordered. PVR was 250, Castro catheter inserted in the ED Diabetes mellitus type [id number] with hypoglycemia Hold oral antidiabetic agents, given D10 in ED. Hypertension Hyperlipidemia Reconcile home medications, may need dose adjustment from renal standpoint. DVT PPX: Heparin Code status: Full Dispo: home, ~2-3 days
[2022-05-13 06:37] LABS: Hematocrit 25.7 % (39.6-49.0); Lymphocytes % 11.8 % (15.3-44.8); MCV 97.1 fL (80-100); MPV 8.7 fL (7.6-11.3); RBC Red Blood Cell Count 2.65 M/uL (4.33-5.43)
[2022-05-13 06:53] LABS: Magnesium 2.5 mg/dL (1.6-2.4); Potassium 4.3 mmol/L (3.5-5.1)
[2022-05-13] MEDS: INSULIN -REGULAR HUMAN 50 UNIT/0.5 ML ML SQ SCH ×4 (07:30→20:58)
[2022-05-13] MEDS: ACETAMINOPHEN 325 MG TABLET PO PRN ×2 (08:49→21:20)
[2022-05-13] MEDS: AMLODIPINE 5 MG TAB PO SCH ×2 (08:50→20:59)
[2022-05-13] MEDS: HYDRALAZINE HCL 25 MG TABLET PO SCH ×3 (08:50→20:59)
[2022-05-13] MEDS: PANTOPRAZOLE 40 MG INJ IVP SCH ×2 (08:51→21:00)
[2022-05-13] MEDS: SUCRALFATE 1GM/10ML UCUP PO SCH ×4 (08:52→20:57)
[2022-05-13] MEDS: CEFEPIME 1 GM in NA CHLORIDE 0.9% 100 ML IV SCH ×2 (08:52→21:00)
[2022-05-13] MEDS: HEPARIN 5000 UNIT/ML 1 ML VIAL SQ SCH ×2 (08:52→21:00)
[2022-05-13] MEDS: AMINO ACIDS/PROTEIN HYDROLYS 30 ML LIQUID.PKT PO SCH ×2 (08:58→21:00)
[2022-05-13] MEDS: VANCOMYCIN 1.5 GM in NA CHLORIDE 0.9% 500 ML IVPB SCH (09:44)
[2022-05-13] MEDS ORDERED: EPOETIN ALFA-EPBX 10,000 UNIT/ML VIAL SQ ONE ×2 (13:00)
[2022-05-13] MEDS: D5 0.45 NS 1,000 ML IV SCH (22:05)
[2022-05-14 04:15] LABS: Absolute Lymphocytes (CBC) 2.5 K/uL (0.7-4.9); Hematocrit 24.9 % (39.6-49.0); Lymphocytes % 14.1 % (15.3-44.8); MCV 96.2 fL (80-100); MPV 9.1 fL (7.6-11.3); RBC Red Blood Cell Count 2.59 M/uL (4.33-5.43)
[2022-05-14 04:47] LABS: Magnesium 2.4 mg/dL (1.6-2.4); Potassium 4.3 mmol/L (3.5-5.1)
[2022-05-14] MEDS: ACETAMINOPHEN 325 MG TABLET PO PRN ×2 (05:01→13:07)
[2022-05-14] MEDS: METOPROLOL XL 50 MG TAB PO SCH (05:02)
[2022-05-14] MEDS: INSULIN -REGULAR HUMAN 50 UNIT/0.5 ML ML SQ SCH ×4 (07:30→21:40)
[2022-05-14] MEDS: SUCRALFATE 1GM/10ML UCUP PO SCH ×4 (07:33→21:40)
[2022-05-14] MEDS: HYDRALAZINE HCL 25 MG TABLET PO SCH ×3 (08:37→21:39)
[2022-05-14] MEDS: PANTOPRAZOLE 40 MG INJ IVP SCH (08:38)
[2022-05-14] MEDS: CEFEPIME 1 GM in NA CHLORIDE 0.9% 100 ML IV SCH ×2 (08:38→21:40)
[2022-05-14] MEDS: AMLODIPINE 5 MG TAB PO SCH ×2 (08:38→21:37)
[2022-05-14] MEDS: HEPARIN 5000 UNIT/ML 1 ML VIAL SQ SCH ×2 (08:39→21:40)
[2022-05-14] MEDS: AMINO ACIDS/PROTEIN HYDROLYS 30 ML LIQUID.PKT PO SCH ×2 (08:39→21:00)
--- NOTE | 2022-05-14 13:06 | P.PN ---
Date of Service: 05/14/22 Subjective: feels he is improving daily still with fever, but he doesn't "Feel as bad" when they occur, not as high psoriasis lesions improving, redness improved pain improved nausea resolved no new/worsening symptoms ROS: 10 point ROS as noted above, otherwise negative Physical exam GEN: Alert, oriented, NAD HEENT: Normal conjunctiva, sclera anicteric CV: Regular rate and rhythm, no edema Pulm: Nonlabored respirations on room air ABD: Soft, nontender, nondistended Integumentary: Psoriatic rash noted on bilateral lower extremities and lower back, majority of lower 2/3 of back, less red, less indurated, warm, superficial ulcer on right buttock; rash on b/l legs much improved minimal erythema Neuro: Normal speech, normal affect Problem List Severe sepsis secondary to cellulitis with underlying psoriasis of the back/bu ttocks MADHURI superimposed on CKD 4 Urinary retention, new Diabetes mellitus type [id number] with hypoglycemia Hypertension Hyperlipidemia Severe sepsis secondary to cellulitis with underlying psoriasis of the back/buttocks no other clear source of infection cellulitis vs component of erythrodermic psoriasis or pustular psoriasis ID consulted continue empiric vanc/cefepime no extensive redness throughout body, ~50% of bilateral legs, and 60% of posterior back was affected on presentation no obvious pustules redness much improved CRP up to ~200 feels better, but continues with fever less suspicious of all due to bacterial cellulitis, suspect mostly due to psoriasis recently (05/05) prescribed systemic steroids and bactrim which have risk to exacerbate his psoriasis as patient is feeling better, the prominence of his erythema in legs and back have improved avoid steroids, can worsen, avoid chronic use, and patient has not liked steroids in the past consideration of cyclosporine/methotrexate, etc if no improvement, for aggressive treatment of psoriasis Acute renal failure superimposed on CKD 4 Urinary retention Possibly multifactorial, patient noted to have some urinary retention in the ED which is new for the patient. Recently receiving Bactrim, which may have played a role, some prerenal component: Has been eating less than half of his usual for the last few days Patient's nephrology group consulted, renal ultrasound ordered. PVR was 250, Castro catheter inserted in the ED voiding trial in AM Diabetes mellitus type [id number] with hypoglycemia Hold oral antidiabetic agents, given D10 in ED. accucheks, sliding scale Hypertension Hyperlipidemia Reconcile home medications, may need dose adjustment from renal standpoint. avoid nephrotoxic meds DVT PPX: Heparin Code status: Full Dispo: home, ~2 days
--- NOTE | 2022-05-14 15:41 | PN ---
Date of Progress Note: 05/14/2022 Subjective: The patient is alert, awake and comfortable. Looks somewhat better than yesterday. Herlinda athing comfortably. Denies any headache or nausea. His blood pressures are somewhat improved. Objective: Vitals show systolic blood pressure 145, diastolic at 68, improvement from 150 to 160 ran ge yesterday. Pulse is about 70 to 75 and regular, respirations around 14 to 16 and comfortable, O2 sats are in the 90 range between 92% to 96% on room air. The patient is currently not in atrial fibr illation on my examination, his heart rate is regular and seems to be not in atrial fibrillation. Hi s glucose last was 108. Lungs are clear to auscultation. Abdomen is soft. Extremities do not revea l any edema. Laboratory Data: Reviewed. Labs show WBC count stable from yesterday at about 17.4, hemoglobin and hematocrit are 8.3 and 24.9, platelet count of 177. His chemistry shows sodium 135, potassium of 4.3 , chloride 107, bicarb is 22, BUN and creatinine are 38 and 2.3, calcium is at 8.0. Assessment And Plan: 1.Chronic kidney disease with perhaps some acute component. The patient clinically stable at this p oint. Volume status seems to be reasonable. Continue to monitor with current medications. Avoid ne phrotoxins, avoid NSAIDs. The patient does not seem to be on any. 2.Hypertension, somewhat improved on hydralazine t.i.d., metoprolol 50 mg b.i.d. Medications are wu iting him somewhat. His creatinine has stabilized around 2.3 range. His pulse is reasonable at abou t 70 to 80 and regular. His blood pressure is improved down to 140 range. Hopefully, we will notice further improvement as his medications are settling. Electrolytes, the patient's potassium, sodium, bicarb seem reasonable. Continue to monitor. Encourage balance diet. 3.High leukocyte count. Dr. Bhagat is working this up through evaluation of cultures and there is no clear site of infection. The patient does have history of using steroids recently and also question of some psoriasis, perhaps so the white blood cell count is related due to diet; however, the patien t does not seem to have any infection evident clinically. He seems to be overall improved and also h as been now still with low-grade fevers. The patient will benefit from a Rheumatology consult and ev aluation perhaps if his acute conditions are improved. This could be done on an outpatient basis. /RADAMES Voice ID: [id number] Report ID: [id number]
[2022-05-14] MEDS: PANTOPRAZOLE 40MG TABLET PO SCH (15:46)
[2022-05-14] MEDS: ONDANSETRON 4 MG/2 ML VIAL IV PRN ×2 (18:05→23:06)
[2022-05-14] MEDS ORDERED: FAMOTIDINE 20 MG/2 ML VIAL IV ONE (21:43)
[2022-05-14] MEDS: VANCOMYCIN 1.5 GM in NA CHLORIDE 0.9% 500 ML IVPB SCH (22:40)
[2022-05-14] MEDS: POLYETHYL GLY 3350 17 GM/DOSE PO ONE ×2 (22:44→23:07)
[2022-05-14] MEDS ORDERED: BISACODYL 10 MG RECTAL SUPP PR ONE (23:11)
[2022-05-15 04:24] LABS: Absolute Lymphocytes (CBC) 1.4 K/uL (0.7-4.9); Hematocrit 25.5 % (39.6-49.0); Lymphocytes % 8.8 % (15.3-44.8); MCV 96.5 fL (80-100); MPV 9.2 fL (7.6-11.3); RBC Red Blood Cell Count 2.64 M/uL (4.33-5.43)
[2022-05-15 04:39] LABS: Albumin 2.8 g/dL (3.4-5.0); Bilirubin Total 0.9 mg/dL (0.2-1.0); Potassium 4.6 mmol/L (3.5-5.1); Protein, Total 7.6 g/dL (6.4-8.2)
[2022-05-15 04:53] LABS: Blood Morphology Comment NOTED (NOT SEEN); Ovalocytes 1+; Platelet Estimate ADEQ
[2022-05-15] MEDS: ONDANSETRON 4 MG/2 ML VIAL IV PRN (04:53)
[2022-05-15] MEDS: METOPROLOL XL 50 MG TAB PO SCH (05:49)
--- NOTE | 2022-05-15 07:05 | ECHO ---
HEIGHT: 5 ft 11 in WEIGHT: 202 lb 0.153 oz DATE OF STUDY: 05/12/[address]: Osmar De Luna NP 2-DIMENSIONAL: YES M.MODE: YES DOPPLER: YES COLOR FLOW: YES TDS: PORTABLE: YES DEFINITY: BUBBLE STUDY: DIAGNOSIS: SEVERE SEPSIS, RULE OUT ENDOCARDITIS CARDIAC HISTORY: CATHERIZATION: NO SURGERY: NO PROSTHETIC VALVE: NO PACEMAKER: NO MEASUREMENTS (cm) DIASTOLIC (NORMALS) SYSTOLIC (NORMALS) IVSd 1.1 (0.6-1.2) LA Diam 2.6 (1.9-4.0) LVEF 55-60% LVIDd 4.2 (3.5-5.7) LVIDs 3.2 (2.0-3.5) %FS 24% LVPWd 1.2 (0.6-1.2) Ao Diam 3.4 (2.0-3.7) 2 DIMENSIONAL ASSESSMENT: RIGHT ATRIUM: NORMAL LEFT ATRIUM: NORMAL RIGHT VENTRICLE: NORMAL LEFT VENTRICLE: NORMAL TRICUSPID VALVE: MILD TRICUSPID REGURGTIATION MITRAL VALVE: MILD MITRAL REGURGITATION PULMONIC VALVE: NORMAL AORTIC VALVE: NORMAL PERICARDIAL EFFUSION: NONE AORTIC ROOT: NORMAL LEFT VENTRICULAR WALL MOTION: NORMAL DOPPLER/COLOR FLOW: SEE BELOW COMMENTS: 1. NORMAL LEFT VENTRICULAR EJECTION FRACTION 55-60% 2. NORMAL WALL MOTION 3. MILD MITRAL REGURGITATION 4. MILD TRICUSPID REGURGITATION 5. NO CLEAR VEGETATION IS SEEN 6. POOR WINDOWS 7. MODERATE DIASTOLIC FUNCTION TECHNOLOGIST: VERENICE BROCK
--- NOTE | 2022-05-15 08:35 | P.PN ---
Subjective Date of Service: 05/15/22 Chief Complaint: Sepsis, acute renal failure Patient lying in bed with family member at the bedside. Stated having upset stomach that decreased his oral intake Primary team has been notified Physical Examination - Vital Signs Temperature: 97.1 F Blood Pressure: 160/69 Pulse: 75 Respirations: 18 Pulse Ox (%): 95 - Physical Exam General: Alert, In no apparent distress, Oriented x3 Respiratory: Clear to auscultation bilaterally Cardiovascular: No edema, Normal S1 S2 Gastrointestinal: Normal bowel sounds Musculoskeletal: No swelling, Erythema (secondary to psoriasis) Integumentary: Rash(es) (secondary to psoriasis), Erythema Neurological: Normal speech, Normal tone, Normal affect - Studies active medications Acetaminophen (Acetaminophen 325 Mg Tablet) 650 mg PO Q6H PRN PRN Reason: TEMP > 100' F Last Admin: 05/14/22 13:07 Dose: 650 mg Amino Acids (Amino Acids/Protein Hydrolys 30 Ml Liquid.Pkt) 30 ml PO BID [facility] Last Admin: 05/14/22 21:00 Dose: Not Given Amlodipine Besylate (Amlodipine 5 Mg Tab) 10 mg PO BID [facility] Last Admin: 05/14/22 21:37 Dose: 10 mg Heparin Sodium (Porcine) (Heparin 5000 Unit/Ml 1 Ml Vial) 5,000 unit SQ Q12HR [facility] Last Admin: 05/14/22 21:40 Dose: 5,000 unit Hydralazine HCl (Hydralazine Hcl 25 Mg Tablet) 25 mg PO TID [facility] Last Admin: 05/14/22 21:39 Dose: 25 mg Dextrose (D10w 500 Ml Ivpb) 250 mls @ 0 mls/hr IV .Q0M [facility] Last Admin: 05/11/22 04:42 Dose: 250 mls Vancomycin HCl 1.5 gm/ Sodium (Chloride) 500 mls @ 333.333 mls/hr IVPB Q36H [facility] Last Admin: 05/14/22 22:40 Dose: 500 mls Cefepime HCl 1 gm/ Sodium (Chloride) 100 mls @ 200 mls/hr IV Q12HR [facility] Last Admin: 05/14/22 21:40 Dose: 100 mls Insulin Human Regular (Insulin -Regular Human 50 Unit/0.5 Ml Ml) 0 unit SQ ACHS [facility]; Protocol Last Admin: 05/14/22 21:40 Dose: 2 unit Metoprolol Succinate (Metoprolol Xl 50 Mg Tab) 50 mg PO [id number] [facility] Last Admin: 05/15/22 05:49 Dose: 50 mg Ondansetron HCl (Ondansetron 4 Mg/2 Ml Vial) 4 mg IV Q6HP PRN PRN Reason: NAUSEA / VOMITING Last Admin: 05/15/22 04:53 Dose: 4 mg Pantoprazole Sodium (Pantoprazole 40mg Tablet) 40 mg PO BIDAC [facility]; Protocol Last Admin: 05/14/22 15:46 Dose: 40 mg Sodium Chloride (Flush Normal Saline 10 Ml) 10 ml IV BID [facility] Last Admin: 05/14/22 21:00 Dose: 10 ml Sodium Chloride (Sodium Chloride 0.9% 10ml Inj) 10 ml IV UD PRN PRN Reason: Diluant Sucralfate (Sucralfate 1gm/10ml Ucup) 1 gm PO ACHS [facility] Last Admin: 05/14/22 21:40 Dose: 1 gm Microbiology Data (last 24 hrs): Microbiology 05/10/22 15:30 Blood - Blood Aerobic Blood Culture - Preliminary No growth in 24 hours. 05/10/22 15:30 Blood - Blood Anaerobic Blood Culture - Preliminary No growth in 24 hours. 05/10/22 15:00 Blood - Blood Aerobic Blood Culture - Preliminary No growth in 24 hours. 05/10/22 15:00 Blood - Blood Anaerobic Blood Culture - Preliminary No growth in 24 hours. Assessment And Plan - Current Problems (Diagnosis) (1) Cellulitis Plan: Cellulitis with underlying psoriasis of the back/buttocks Cultures: - 05/10 UC: Pending - 05/10 BC: Negative Antibiotics: - Current on IV Cefepime and Vancomycin (05/10- ) Recommendations: - Continue IV Cefepime and Vancomycin for total of 2 weeks duration - Can switch to PO Augmentin when discharge the patient - Plan - Severe sepsis secondary to cellulitis with underlying psoriasis of the back/buttocks: Continue IV antibiotics for total of 2 weeks duration and can switch to PO when d/c - Abdominal pain - Primary team notified and aware. CT? - Acute renal failure superimposed on CKD 4 - Urinary retention - Diabetes mellitus type 2 - Hyperlipidemia - CKD 4 - Hypertension - Hyperlipidemia - Psoriasis - PAD - Anemia of chronic disease ID will closely monitor the patient for signs of infection with fever and WBC trends Case has been discussed with Dr. Argueta, N
[2022-05-15] MEDS: AMINO ACIDS/PROTEIN HYDROLYS 30 ML LIQUID.PKT PO SCH ×2 (09:00→21:00)
[2022-05-15] MEDS: CEFEPIME 1 GM in NA CHLORIDE 0.9% 100 ML IV SCH ×2 (09:00→21:31)
[2022-05-15] MEDS: HYDRALAZINE HCL 25 MG TABLET PO SCH ×3 (09:00→21:30)
[2022-05-15] MEDS ORDERED: LACTULOSE 20 GM/30 ML UCUP PO ONE (09:16)
[2022-05-15] MEDS ORDERED: DOCUSATE NA/SENNA CONC 1 TAB PO ONE (09:20)
--- NOTE | 2022-05-15 09:24 | P.PN ---
Date of Service: 05/15/22 Vital Signs Temp Pulse Resp BP Pulse Ox 97.1 F 75 18 160/69 H 95 05/15/22 08:35 05/15/22 08:35 05/15/22 08:35 05/15/22 08:35 05/15/22 08:35 Medications Acetaminophen (Acetaminophen 325 Mg Tablet) 650 mg PO Q6H PRN PRN Reason: TEMP > 100' F Last Admin: 05/14/22 13:07 Dose: 650 mg Amino Acids (Amino Acids/Protein Hydrolys 30 Ml Liquid.Pkt) 30 ml PO BID [facility] Last Admin: 05/14/22 21:00 Dose: Not Given Amlodipine Besylate (Amlodipine 5 Mg Tab) 10 mg PO BID [facility] Last Admin: 05/14/22 21:37 Dose: 10 mg Heparin Sodium (Porcine) (Heparin 5000 Unit/Ml 1 Ml Vial) 5,000 unit SQ Q12HR [facility] Last Admin: 05/14/22 21:40 Dose: 5,000 unit Hydralazine HCl (Hydralazine Hcl 25 Mg Tablet) 25 mg PO TID [facility] Last Admin: 05/14/22 21:39 Dose: 25 mg Dextrose (D10w 500 Ml Ivpb) 250 mls @ 0 mls/hr IV .Q0M [facility] Last Admin: 05/11/22 04:42 Dose: 250 mls Vancomycin HCl 1.5 gm/ Sodium (Chloride) 500 mls @ 333.333 mls/hr IVPB Q36H [facility] Last Admin: 05/14/22 22:40 Dose: 500 mls Cefepime HCl 1 gm/ Sodium (Chloride) 100 mls @ 200 mls/hr IV Q12HR [facility] Last Admin: 05/14/22 21:40 Dose: 100 mls Insulin Human Regular (Insulin -Regular Human 50 Unit/0.5 Ml Ml) 0 unit SQ ACHS [facility]; Protocol Last Admin: 05/14/22 21:40 Dose: 2 unit Metoprolol Succinate (Metoprolol Xl 50 Mg Tab) 50 mg PO [id number] [facility] Last Admin: 05/15/22 05:49 Dose: 50 mg Ondansetron HCl (Ondansetron 4 Mg/2 Ml Vial) 4 mg IV Q6HP PRN PRN Reason: NAUSEA / VOMITING Last Admin: 05/15/22 04:53 Dose: 4 mg Pantoprazole Sodium (Pantoprazole 40mg Tablet) 40 mg PO BIDAC [facility]; Protocol Last Admin: 05/14/22 15:46 Dose: 40 mg Senna/Docusate Sodium (Docusate Na/Senna Conc 1 Tab) 2 tab PO 1X ONE Stop: 05/15/22 09:21 Sodium Chloride (Flush Normal Saline 10 Ml) 10 ml IV BID [facility] Last Admin: 05/14/22 21:00 Dose: 10 ml Sodium Chloride (Sodium Chloride 0.9% 10ml Inj) 10 ml IV UD PRN PRN Reason: Diluant Sucralfate (Sucralfate 1gm/10ml Ucup) 1 gm PO ACHS [facility] Last Admin: 05/14/22 21:40 Dose: 1 gm Microbiology Results 05/10/22 15:30 Blood - Blood Aerobic Blood Culture - Preliminary No growth in 24 hours. 05/10/22 15:30 Blood - Blood Anaerobic Blood Culture - Preliminary No growth in 24 hours. 05/10/22 15:00 Blood - Blood Aerobic Blood Culture - Preliminary No growth in 24 hours. 05/10/22 15:00 Blood - Blood Anaerobic Blood Culture - Preliminary No growth in 24 hours. Assessment/ Plan: Nephrology No dyspnea or chest pain Constipation with nausea Malaise and fatigue this morning Vitals, medications, blood work and imaging reviewed in the chart General: Oriented x3, Cooperative HEENT: Atraumatic Neck: Supple Respiratory: Normal air movement Cardiovascular: No edema, Regular rate/rhythm Gastrointestinal: Soft and benign, Non-distended Musculoskeletal: No clubbing, No contractures Integumentary: No rashes, No cyanosis Neurological: Normal speech Blood work reviewed in the chart. Imagings Data: EXAM DESCRIPTION: US - Renal Ultrasound-Complete - 05/11/2022 12:33 am CLINICAL HISTORY: ARF COMPARISON: Renal Ultrasound-Complete dated 07/12/2017 FINDINGS: Both kidneys are normal in size, shape and echotexture. The right kidney measures 9.0 x 5.4 x 3.8 cm. No hydronephrosis, focal mass or perinephric fluid. The left kidney measures 9.8 x 5.4 x 4.0 cm. 12 mm benign cyst. No hydronephrosis, focal mass or perinephric fluid. The urinary bladder is incompletely distended without gross abnormality seen. IMPRESSION: Benign left renal cysts, otherwise negative study. EXAM DESCRIPTION: CTAbdomen Pelvis Wo Contrast - 05/10/2022 5:42 pm CLINICAL HISTORY: ABD PAIN COMPARISON: None TECHNIQUE: CT of the abdomen and pelvis was performed. All CT scans are performed using dose optimization technique as appropriate and may include automated exposure control or mA/KV adjustment according to patient size. FINDINGS: Lower chest: Hiatal hernia. Circumferential thickened distal esophagus. Coronary artery calcifications. Trace pericardial effusion. Mild cardiomegaly. Liver: No acute abnormality or suspicious lesions. Biliary: No biliary ductal dilatation. Stomach: No significant focal abnormality. Duodenum: No significant focal abnormality. Pancreas: No significant abnormality. Spleen: No significant abnormality. Adrenal: No suspicious lesions. Kidney/ureter: No hydronephrosis. Punctate stone in the upper pole right kidney. Too small to characterize and/or benign appearing renal lesions are noted. Mild nonspecific perinephric stranding. Retroperitoneum: No retroperitoneal adenopathy. Vascular: No aneurysm. Atherosclerosis. Bowel: Moderate colonic stool.. Normal appendix. Peritoneum: No ascites or free air. Bladder: Grossly unremarkable. Reproductive: No adenopathy or masses Bones: No acute fracture. Multilevel degenerative changes are present in the spine. Other: n/a IMPRESSION: No acute intra-abdominal or pelvic finding. Nonobstructive right nephrolithiasis. Normal appendix. Possible constipation. ADDENDUM: 4.6 cm x 1.9 cm structure ventral to the right common femoral artery and common femoral vein corresponding with the finding on the same-day ultrasound. This has a area of hyperattenuation likely reflecting hemorrhage or sequela of prior hemorrhage. The patient reportedly had a prior right inguinal vascular access procedure and this may be sequela of that procedure. R eference ultrasound for additional findings EXAM DESCRIPTION: RAD - Chest Single View - 05/10/2022 1:52 pm CLINICAL HISTORY: FEVER COMPARISON: Chest Pa And Lat (2 Views) dated 04/17/2022 FINDINGS: Lines: None. Lungs: No evidence of edema or pneumonia. Pleural: No significant pleural effusions or pneumothorax. Cardiac: The heart size is within normal limits. Mediastinum: Within normal limits. Bones: No acute fractures. Other: None IMPRESSION: No acute cardiopulmonary disease. Doppler Renal US 01/16/20:Negative MODE. Right kidney 10.1cm. Left 10.2cm. Simple right renal cyst. Bladder US 01/16/20:No mass. PVR 14ml. Renal US 07/12/17:Right kidney 9cm; Left 10 cm. Right renal cyst. No hydronephrosis. Conclusions/Impression: Stage III MADHURI in the setting of sepsis & hypovolemia CKD IV with proteinuria (Baseline Cr 2.2) -No NSAIDs Hyponatremia, stable -Encourage nutrition HTN with CKD -Continue Amlodipine 5mg BID -Increase Hydralazine 50mg BID DM II with CKD -RISS Anemia in chronic illness -Monitor H&H -Retacrit MWF Slow transit constipation -Lactulose X1 -Senna X1 -Start Colace BID
[2022-05-15] MEDS: AMLODIPINE 5 MG TAB PO SCH ×2 (09:30→21:30)
[2022-05-15] MEDS: PANTOPRAZOLE 40MG TABLET PO SCH (09:31)
[2022-05-15] MEDS: SUCRALFATE 1GM/10ML UCUP PO SCH ×4 (09:34→21:27)
[2022-05-15] MEDS: INSULIN -REGULAR HUMAN 50 UNIT/0.5 ML ML SQ SCH ×4 (09:35→21:28)
[2022-05-15] MEDS: HEPARIN 5000 UNIT/ML 1 ML VIAL SQ SCH ×2 (09:35→21:27)
--- NOTE | 2022-05-15 12:47 | EKG ---
Test Date: 2022-05-12 Test Time: 04:53:16 Deputy Program Manager: NICK MEASUREMENT RESULTS: Intervals: Rate: 80 NH: 120 QRSD: 130 QT: 388 QTc: 447 [place]: P: 61 NH: 120 QRS: 86 T: 73 INTERPRETIVE STATEMENTS: Sinus rhythm with premature atrial complexes Right bundle branch block Abnormal ECG Compared to ECG 05/10/2022 15:15:29 Atrial premature complex(es) now present Electronically Signed On 05-15-22 12:38:54 CITRUS PEELER by Augustin Snow
--- NOTE | 2022-05-15 13:44 | PN ---
Subjective: The patient is seen in [facility] in room 204 on the second floor. The patient is alert, awake and comfortable. Relatives are also in the room with him as well one of his grand nieces. The patient denies any headache, nausea, vomiting, feels comfor table. feeling comfortable currently. He had been on Bactrim recently. Also had been on some steroids. There is some question of psoriasis. due to recent steroid use. He juni es any new complaints or issues. Physical Examination: Vital Signs: Blood pressure is currently slightly on the higher side with ranging systolic in 150-16 0 range. Last blood pressure is 158/68, pulse about 80 and regular, respirations 14 and comfortable, O2 sats 95% on room air. Lungs: Clear to auscultation. Abdomen: Soft. Extremities: Does not reveal any significant edema. Heart: Sounds does have irregular beats at times and question ectopic beats versus irregular heart r ate. Laboratory Data: Reviewed. Labs show WBC count 17.3, hemoglobin 8.3, hematocrit 25.7, platelet coun t of 186. Chemistry shows sodium 134, potassium 4.3, chloride 105, bicarb is 24, BUN is 41. Creatin ine continues to improve and now is down to 2.3 from 2.75, before that was 3.8, before that was 4.5. Assessment And Plan: 1.The patient with chronic kidney disease with acute kidney injury stabilizing and is com fortable. Denies any headache, nausea, vomiting. The patient's volume status seems to be improved. He has been eating and drinking somewhat better. Continue to monitor closely with followup outpatie nt once acute issues are resolved. The patient will follow up with , his primary nephr ologist. At this point, the patient is eating and drinking well. His blood pressures are somewhat o n the higher side. 2.Hypertension in the setting of chronic kidney disease. We will go ahead and increase his hydralaz ine to p.o. t.i.d. We will go ahead and increase his metoprolol to 50 mg with parameters. Hydralazin e, hold if systolic blood pressure less than 110. Metoprolol, hold if systolic blood pressure is les s than 110 and/or pulse less than 60. 3.Unspecified fevers. The patient is being worked up for infectious causes. WBC is still elevated. The patient did not have a fever on my evaluation. discussed plan also with Dr. Bhagat. We will continue to monitor closely with labs . /RADAMES Voice ID: [id number] Report ID: [id number]
[2022-05-15] MEDS ORDERED: SODIUM CHLORIDE 0.9% 10ML INJ IV PRN (15:41)
--- NOTE | 2022-05-15 15:41 | P.PN ---
Date of Service: 05/15/22 Subjective: was feeling better up until yesterday just before lunch having ongoing nausea and vomiting, with worse epigastric pain no BM in several days fever improving - decreased frequency and Tmax psoriasis much improved ROS: 10 point ROS as noted above, otherwise negative Physical exam GEN: Alert, oriented, uncomfortable HEENT: Normal conjunctiva, sclera anicteric CV: Regular rate and rhythm, no edema Pulm: Nonlabored respirations on room air ABD: Soft, moderate tenderness to palpation in epigastric region Integumentary: Psoriatic rash noted on bilateral lower extremities and lower back, lower back, less red, less indurated, warm, superficial ulcer on right buttock; rash on b/l legs much improved minimal erythema Neuro: Normal speech, normal affect Problem List Severe sepsis secondary to cellulitis with underlying psoriasis of the back/buttocks MADHURI superimposed on CKD 4 Urinary retention, new Diabetes mellitus type [id number] with hypoglycemia Hypertension Hyperlipidemia Esophagitis, h/o GERD chronic anemia, iron deficiency Severe sepsis secondary to cellulitis with underlying psoriasis of the back/buttocks no other clear source of infection cellulitis vs component of erythrodermic psoriasis or pustular psoriasis ID consulted -continue empiric vanc/cefepime no extensive redness throughout body, ~50% of bilateral legs, and 60% of posterior back was affected on presentation no obvious pustules redness much improved CRP up to ~200 feels better, fever continues - but less frequent / not as high less suspicious of all due to bacterial cellulitis, suspect mostly due to psoriasis / some other cause recently (05/05) prescribed systemic steroids and bactrim which have risk to exacerbate his psoriasis as patient is feeling better, the prominence of his erythema in legs and back have improved avoid steroids, can worsen, avoid chronic use, and patient has not liked steroids in the past consideration of cyclosporine/methotrexate, etc if no improvement, for aggressive treatment of psoriasis Acute renal failure superimposed on CKD 4 Urinary retention Possibly multifactorial, patient noted to have some urinary retention in the ED which is new for the patient. Recently receiving Bactrim, which may have played a role, some prerenal component: Has been eating less than half of his usual for the last few days Patient's nephrology group consulted, renal ultrasound ordered. PVR was 250, Castro catheter inserted in the ED nausea/vomiting Esophagitis signs seen on CT, h/o GERD CT with changes noted at distal esophagus initial pain/nausea improved after BM and protonix/carafate feels carafate doesn't make a different / unable to keep it down this morning switch protonix back to IV check U/S Dr. Beaver consulted - message sent, will evaluate patient 05/16 Diabetes mellitus type [id number] with hypoglycemia Hold oral antidiabetic agents, given D10 in ED. accucheks, sliding scale Hypertension Hyperlipidemia Reconcile home medications, may need dose adjustment from renal standpoint. avoid nephrotoxic meds Code status: Full Dispo: home, ~2-3 days
--- NOTE | 2022-05-15 17:47 | RAD REPORT ---
EXAM DESCRIPTION: US - Abdomen Exam Complete - 05/15/2022 5:33 pm CLINICAL HISTORY: Abdominal pain. RUQ/Epigastric pain COMPARISON: Renal Ultrasound-Complete dated 05/11/2022 FINDINGS: The liver is normal in size, shape and echotexture. No focal liver lesions or intrahepatic biliary dilatation is seen. The gallbladder demonstrates no gallstones, pericholecystic fluid or gallbladder wall thickening. Co mmon bile duct is normal in caliber measuring 5 millimeters. Both kidneys are normal in size, shape and echotexture. No hydronephrosis, focal lesion of concern or perinephric fluid. The spleen is not well seen. The pancreas and aorta are obscured by bowel gas. The visualized aspects of the IVC are grossly normal. IMPRESSION: Unremarkable study except for limited assessment of the spleen, pancreas and aorta due t o bowel gas.
[2022-05-15] MEDS: EPOETIN ALFA 10,000 UNIT/ML VIAL SQ SCH (21:26)
[2022-05-15] MEDS: PANTOPRAZOLE 40 MG INJ IVP SCH (21:27)
[2022-05-15] MEDS: DOCUSATE NA 100 MG CAP PO SCH (21:27)
[2022-05-16] MEDS: ONDANSETRON 4 MG/2 ML VIAL IV PRN ×2 (01:44→21:05)
[2022-05-16 03:47] LABS: Absolute Lymphocytes (CBC) 1.3 K/uL (0.7-4.9); Hematocrit 25.2 % (39.6-49.0); Lymphocytes % 6.6 % (15.3-44.8); MCV 95.4 fL (80-100); RBC Red Blood Cell Count 2.64 M/uL (4.33-5.43)
[2022-05-16 03:55] LABS: Albumin 2.7 g/dL (3.4-5.0); Bilirubin Total 0.7 mg/dL (0.2-1.0); Magnesium 2.7 mg/dL (1.6-2.4); Potassium 3.4 mmol/L (3.5-5.1); Protein, Total 7.5 g/dL (6.4-8.2)
[2022-05-16] MEDS: METOPROLOL XL 50 MG TAB PO SCH (05:46)
[2022-05-16] MEDS: SUCRALFATE 1GM/10ML UCUP PO SCH ×4 (07:30→21:01)
--- NOTE | 2022-05-16 08:40 | P.PN ---
Subjective Date of Service: 05/16/22 Chief Complaint: Sepsis, acute renal failure Patient lying in bed with family member at the bedside. Upset stomach getting better with no vomiting. No major event upon examination Physical Examination - Vital Signs Temperature: 99.7 F Blood Pressure: 169/75 Pulse: 75 Respirations: 18 Pulse Ox (%): 96 - Physical Exam General: Alert, In no apparent distress, Oriented x3 Respiratory: Clear to auscultation bilaterally Cardiovascular: No edema, Normal S1 S2 Gastrointestinal: Normal bowel sounds Musculoskeletal: Erythema (secondary to psoriasis) Integumentary: Rash(es) (secondary to psoriasis), Erythema Neurological: Normal speech, Normal tone, Normal affect Urinary: Castro catheter (urine yellow and clear) - Studies active medications Acetaminophen (Acetaminophen 325 Mg Tablet) 650 mg PO Q6H PRN PRN Reason: TEMP > 100' F Last Admin: 05/14/22 13:07 Dose: 650 mg Amino Acids (Amino Acids/Protein Hydrolys 30 Ml Liquid.Pkt) 30 ml PO BID [facility] Last Admin: 05/15/22 21:00 Dose: Not Given Amlodipine Besylate (Amlodipine 5 Mg Tab) 10 mg PO BID [facility] Last Admin: 05/15/22 21:30 Dose: 10 mg Docusate Sodium (Docusate Na 100 Mg Cap) 100 mg PO BID [facility] Last Admin: 05/15/22 21:27 Dose: 100 mg Epoetin Dimitri (Epoetin Dimitri 10,000 Unit/Ml Vial) 10,000 unit SQ M,W,F [facility] Last Admin: 05/15/22 21:26 Dose: 10,000 unit Heparin Sodium (Porcine) (Heparin 5000 Unit/Ml 1 Ml Vial) 5,000 unit SQ Q12HR [facility] Last Admin: 05/15/22 21:27 Dose: 5,000 unit Hydralazine HCl (Hydralazine Hcl 25 Mg Tablet) 50 mg PO BID [facility] Last Admin: 05/15/22 21:30 Dose: 50 mg Dextrose (D10w 500 Ml Ivpb) 250 mls @ 0 mls/hr IV .Q0M [facility] Last Admin: 05/11/22 04:42 Dose: 250 mls Vancomycin HCl 1.5 gm/ Sodium (Chloride) 500 mls @ 333.333 mls/hr IVPB Q36H [facility] Last Admin: 05/14/22 22:40 Dose: 500 mls Cefepime HCl 1 gm/ Sodium (Chloride) 100 mls @ 200 mls/hr IV Q12HR [facility] Last Admin: 05/15/22 21:31 Dose: 100 mls Insulin Human Regular (Insulin -Regular Human 50 Unit/0.5 Ml Ml) 0 unit SQ [facility]; Protocol Last Admin: 05/15/22 21:28 Dose: 2 unit Metoprolol Succinate (Metoprolol Xl 50 Mg Tab) 50 mg PO [id number] [facility] Last Admin: 05/16/22 05:46 Dose: 50 mg Ondansetron HCl (Ondansetron 4 Mg/2 Ml Vial) 4 mg IV Q6HP PRN PRN Reason: NAUSEA / VOMITING Last Admin: 05/16/22 01:44 Dose: 4 mg Pantoprazole Sodium (Pantoprazole 40 Mg Inj) 40 mg IVP Q12HR [facility]; Protocol Last Admin: 05/15/22 21:27 Dose: 40 mg Sodium Chloride (Flush Normal Saline 10 Ml) 10 ml IV BID [facility] Last Admin: 05/15/22 21:32 Dose: 10 ml Sodium Chloride (Sodium Chloride 0.9% 10ml Inj) 10 ml IV UD PRN PRN Reason: Diluant Sucralfate (Sucralfate 1gm/10ml Ucup) 1 gm PO [facility] Last Admin: 05/15/22 21:27 Dose: 1 gm Microbiology Data (last 24 hrs): 05/10/22 15:30 Blood - Blood Aerobic Blood Culture - Final No growth in 5 days. 05/10/22 15:30 Blood - Blood Anaerobic Blood Culture - Final No growth in 5 days. 05/10/22 15:00 Blood - Blood Aerobic Blood Culture - Final No growth in 5 days. 05/10/22 15:00 Blood - Blood Anaerobic Blood Culture - Final No growth in 5 days. Imagings Data: US - Abdomen Exam Complete - 05/15/2022 FINDINGS: The liver is normal in size, shape and echotexture. No focal liver lesions or intrahepatic biliary dilatation is seen. The gallbladder demonstrates no gallstones, pericholecystic fluid or gallbladder wall thickening. Common bile duct is normal in caliber measuring 5 millimeters. Both kidneys are normal in size, shape and echotexture. No hydronephrosis, focal lesion of concern or perinephric fluid. The spleen is not well seen. The pancreas and aorta are obscured by bowel gas. The visualized aspects of the IVC are grossly normal. IMPRESSION: Unremarkable study except for limited assessment of the spleen, pancreas and aorta due to bowel gas Assessment And Plan - Current Problems (Diagnosis) (1) Cellulitis Plan: Cellulitis with underlying psoriasis of the back/buttocks Cultures: - 05/10 UC: Pending for collection. RN has been notified to collect urine to r/o UTI - 05/10 BC: Negative Antibiotics: - Current on IV Cefepime and Vancomycin (05/10- ) Recommendations: - Continue IV Cefepime and Vancomycin for total of 2 weeks duration - Can switch to PO Augmentin when discharge the patient (2) Leukocytosis Plan: WBC trending up Cultures: - 05/10 UC: Pending for collection. RN has been notified to collect urine to r/o UTI - 05/10 BC: Negative Antibiotics: - Current on IV Cefepime and Vancomycin (05/10- ) - Plan - Severe sepsis secondary to cellulitis with underlying psoriasis of the back/buttocks: Continue IV antibiotics for total of 2 weeks duration and can switch to PO Augmentin when d/c - Leukocytosis: UC pending for collection. r/o UTI - Abdominal pain - Primary team notified and aware. CT: Unremarkable study except for limited assessment of the spleen, pancreas and aorta due to bowel gas - Acute renal failure superimposed on CKD 4 - Urinary retention - Diabetes mellitus type 2 - Hyperlipidemia - CKD 4 - Hypertension - Hyperlipidemia - Psoriasis - PAD - Anemia of chronic disease ID will closely monitor the patient for signs of infection with fever and WBC trends Case has been discussed with Dr. Argueta, N
[2022-05-16] MEDS ORDERED: NA CHLORIDE 0.9% 100 ML ONE (08:55)
[2022-05-16] MEDS: CEFEPIME 1 GM in NA CHLORIDE 0.9% 100 ML IV SCH ×2 (09:00→21:03)
[2022-05-16] MEDS: AMINO ACIDS/PROTEIN HYDROLYS 30 ML LIQUID.PKT PO SCH ×2 (09:00→21:00)
[2022-05-16] MEDS: INSULIN -REGULAR HUMAN 50 UNIT/0.5 ML ML SQ SCH ×4 (09:04→21:04)
[2022-05-16] MEDS: AMLODIPINE 5 MG TAB PO SCH ×2 (09:05→21:04)
[2022-05-16] MEDS: HYDRALAZINE HCL 25 MG TABLET PO SCH ×2 (09:05→21:01)
[2022-05-16] MEDS: HEPARIN 5000 UNIT/ML 1 ML VIAL SQ SCH ×2 (09:05→21:03)
[2022-05-16] MEDS: DOCUSATE NA 100 MG CAP PO SCH ×2 (09:05→21:02)
[2022-05-16] MEDS: PANTOPRAZOLE 40 MG INJ IVP SCH ×2 (09:06→21:05)
[2022-05-16] MEDS: VANCOMYCIN 1.5 GM in NA CHLORIDE 0.9% 500 ML IVPB SCH (10:35)
--- NOTE | 2022-05-16 14:54 | P.PN ---
Subjective Date of Service: 05/16/22 Chief Complaint: Sepsis, acute renal failure No major changes from yesterday. Patient report poor appetite, generalized weakness and muscle aches. No recorded fever. WBC count fluctuating. Patient feels his psoriatic rash became worse before admit. Physical Examination - Vital Signs Temperature: 100.0 F Blood Pressure: 150/65 Pulse: 74 Respirations: 16 Pulse Ox (%): 97 - Studies Microbiology Data (last 24 hrs): 05/10/22 15:30 Blood - Blood Aerobic Blood Culture - Final No growth in 5 days. 05/10/22 15:30 Blood - Blood Anaerobic Blood Culture - Final No growth in 5 days. 05/10/22 15:00 Blood - Blood Aerobic Blood Culture - Final No growth in 5 days. 05/10/22 15:00 Blood - Blood Anaerobic Blood Culture - Final No growth in 5 days. Assessment And Plan - Plan hysical exam GEN: Alert, oriented, NAD HEENT: Normal conjunctiva, sclera anicteric CV: Regular rate and rhythm, no edema Pulm: Clear to auscultation bilaterally ABD: Soft, moderate tenderness to palpation in epigastric region Skin: Psoriatic rash noted on bilateral lower extremities and lower back, no induration, superficial ulcer on right buttock; rash on b/l legs much improved minimal erythema Neuro: Normal speech, normal affect Problem List Severe sepsis secondary to cellulitis with underlying psoriasis of the back/buttocks MADHURI superimposed on CKD 4 Urinary retention, new Diabetes mellitus type [id number] with hypoglycemia Hypertension Hyperlipidemia Esophagitis, h/o GERD chronic anemia, iron deficiency Severe sepsis No clear source of infection Differential diagnosis for sepsis include cellulitis as a complication of infected psoriatic skin lesions versus systemic inflammatory disease cellulitis vs component of erythrodermic psoriasis or pustular psoriasis ID is following and treating with empiric vanc/cefepime. no extensive redness. no obvious pustules redness much improved CRP up to 119 Leukocytosis fluctuates and following a sinusoidal pattern. avoid steroids. Patient may need aggressive treatment of psoriasis in which case may need to be in the care of a criminal profiler if he does not show significant clinical improvement. Acute renal failure superimposed on CKD 4 Urinary retention Possibly multifactorial secondary to prerenal from poor oral intake versus urinary retention Nephrology is following. Castro catheter is in place. nausea/vomiting/functional constipation Esophagitis signs seen on CT, h/o GERD CT with changes noted at distal esophagus Continue Protonix. Patient denies any abdominal pain Dr. Beaver consulted to evaluate. Diabetes mellitus type [id number] with hypoglycemia Hold oral antidiabetic agents for episode of hypoglycemia. accucheks, sliding scale Hypertension Hyperlipidemia Continue home medications. avoid nephrotoxic meds Code status: Full
[2022-05-16] MEDS ORDERED: LACTULOSE 20 GM/30 ML UCUP PO ONE (21:05)
--- NOTE | 2022-05-16 21:05 | P.PN ---
Date of Service: 05/16/22 Vital Signs Temp Pulse Resp BP Pulse Ox 100.0 F 74 16 150/65 H 97 05/16/22 16:27 05/16/22 16:27 05/16/22 16:27 05/16/22 16:27 05/16/22 16:27 Medications Acetaminophen (Acetaminophen 325 Mg Tablet) 650 mg PO Q6H PRN PRN Reason: TEMP > 100' F Last Admin: 05/14/22 13:07 Dose: 650 mg Amino Acids (Amino Acids/Protein Hydrolys 30 Ml Liquid.Pkt) 30 ml PO BID [facility] Last Admin: 05/16/22 09:00 Dose: Not Given Amlodipine Besylate (Amlodipine 5 Mg Tab) 10 mg PO BID [facility] Last Admin: 05/16/22 09:05 Dose: 10 mg Docusate Sodium (Docusate Na 100 Mg Cap) 100 mg PO BID [facility] Last Admin: 05/16/22 09:05 Dose: 100 mg Epoetin Dimitri (Epoetin Dimitri 10,000 Unit/Ml Vial) 10,000 unit SQ M,W,F [facility] Last Admin: 05/15/22 21:26 Dose: 10,000 unit Heparin Sodium (Porcine) (Heparin 5000 Unit/Ml 1 Ml Vial) 5,000 unit SQ Q12HR [facility] Last Admin: 05/16/22 09:05 Dose: 5,000 unit Hydralazine HCl (Hydralazine Hcl 25 Mg Tablet) 50 mg PO BID [facility] Last Admin: 05/16/22 09:05 Dose: 50 mg Dextrose (D10w 500 Ml Ivpb) 250 mls @ 0 mls/hr IV .Q0M [facility] Last Admin: 05/11/22 04:42 Dose: 250 mls Vancomycin HCl 1.5 gm/ Sodium (Chloride) 500 mls @ 333.333 mls/hr IVPB Q36H [facility] Last Admin: 05/16/22 10:35 Dose: 500 mls Cefepime HCl 1 gm/ Sodium (Chloride) 100 mls @ 200 mls/hr IV Q12HR [facility] Last Admin: 05/16/22 09:00 Dose: 100 mls Insulin Human Regular (Insulin -Regular Human 50 Unit/0.5 Ml Ml) 0 unit SQ ACHS [facility]; Protocol Last Admin: 05/16/22 16:32 Dose: 2 unit Metoprolol Succinate (Metoprolol Xl 50 Mg Tab) 50 mg PO [id number] [facility] Last Admin: 05/16/22 05:46 Dose: 50 mg Ondansetron HCl (Ondansetron 4 Mg/2 Ml Vial) 4 mg IV Q6HP PRN PRN Reason: NAUSEA / VOMITING Last Admin: 05/16/22 01:44 Dose: 4 mg Pantoprazole Sodium (Pantoprazole 40 Mg Inj) 40 mg IVP Q12HR [facility]; Protocol Last Admin: 05/16/22 09:06 Dose: 40 mg Sodium Chloride (Flush Normal Saline 10 Ml) 10 ml IV BID [facility] Last Admin: 05/16/22 09:00 Dose: 10 ml Sodium Chloride (Sodium Chloride 0.9% 10ml Inj) 10 ml IV UD PRN PRN Reason: Diluant Sucralfate (Sucralfate 1gm/10ml Ucup) 1 gm PO ACHS [facility] Last Admin: 05/16/22 16:30 Dose: 1 gm Microbiology Results 05/10/22 15:30 Blood - Blood Aerobic Blood Culture - Final No growth in 5 days. 05/10/22 15:30 Blood - Blood Anaerobic Blood Culture - Final No growth in 5 days. 05/10/22 15:00 Blood - Blood Aerobic Blood Culture - Final No growth in 5 days. 05/10/22 15:00 Blood - Blood Anaerobic Blood Culture - Final No growth in 5 days. Assessment/ Plan: Nephrology No dyspnea or chest pain Malaise Small BM X2 No acute events overnight Vitals, medications, blood work and imaging reviewed in the chart General: Oriented x3, Cooperative HEENT: Atraumatic Neck: Supple Respiratory: Normal air movement Cardiovascular: No edema, Regular rate/rhythm Gastrointestinal: Soft and benign, Non-distended Musculoskeletal: No clubbing, No contractures Integumentary: No rashes, No cyanosis Neurological: Normal speech Blood work reviewed in the chart. Imagings Data: EXAM DESCRIPTION: US - Renal Ultrasound-Complete - 05/11/2022 12:33 am CLINICAL HISTORY: ARF COMPARISON: Renal Ultrasound-Complete dated 07/12/2017 FINDINGS: Both kidneys are normal in size, shape and echotexture. The right kidney measures 9.0 x 5.4 x 3.8 cm. No hydronephrosis, focal mass or perinephric fluid. The left kidney measures 9.8 x 5.4 x 4.0 cm. 12 mm benign cyst. No hydronephrosis, focal mass or perinephric fluid. The urinary bladder is incompletely distended without gross abnormality seen. IMPRESSION: Benign left renal cysts, otherwise negative study. EXAM DESCRIPTION: CTAbdomen Pelvis Wo Contrast - 05/10/2022 5:42 pm CLINICAL HISTORY: ABD PAIN COMPARISON: None TECHNIQUE: CT of the abdomen and pelvis was performed. All CT scans are performed using dose optimization technique as appropriate and may include automated exposure control or mA/KV adjustment according to patient size. FINDINGS: Lower chest: Hiatal hernia. Circumferential thickened distal esophagus. Coronary artery calcifications. Trace pericardial effusion. Mild cardiomegaly. Liver: No acute abnormality or suspicious lesions. Biliary: No biliary ductal dilatation. Stomach: No significant focal abnormality. Duodenum: No significant focal abnormality. Pancreas: No significant abnormality. Spleen: No significant abnormality. Adrenal: No suspicious lesions. Kidney/ureter: No hydronephrosis. Punctate stone in the upper pole right kidney. Too small to characterize and/or benign appearing renal lesions are noted. Mild nonspecific perinephric stranding. Retroperitoneum: No retroperitoneal adenopathy. Vascular: No aneurysm. Atherosclerosis. Bowel: Moderate colonic stool.. Normal appendix. Peritoneum: No ascites or free air. Bladder: Grossly unremarkable. Reproductive: No adenopathy or masses Bones: No acute fracture. Multilevel degenerative changes are present in the spine. Other: n/a IMPRESSION: No acute intra-abdominal or pelvic finding. Nonobstructive right nephrolithiasis. Normal appendix. Possible constipation. ADDENDUM: 4.6 cm x 1.9 cm structure ventral to the right common femoral artery and common femoral vein corresponding with the finding on the same-day ultrasound. This has a area of hyperattenuation likely reflecting hemorrhage or sequela of prior hemorrhage. The patient reportedly had a prior right inguinal vascular access procedure and this may be sequela of that procedure. Reference ultrasound for additional findings EXAM DESCRIPTION: RAD - Chest Single View - 05/10/2022 1:52 pm CLINICAL HISTORY: FEVER COMPARISON: Chest Pa And Lat (2 Views) dated 04/17/2022 FINDINGS: Lines: None. Lungs: No evidence of edema or pneumonia. Pleural: No significant pleural effusions or pneumothorax. Cardiac: The heart size is within normal limits. Mediastinum: Within normal limits. Bones: No acute fractures. Other: None IMPRESSION: No acute cardiopulmonary disease. Doppler Renal US 01/16/20:Negative MODE. Right kidney 10.1cm. Left 10.2cm. Simple right renal cyst. Bladder US 01/16/20:No mass. PVR 14ml. Renal US 07/12/17:Right kidney 9cm; Left 10 cm. Right renal cyst. No hydronephrosis. Conclusions/Impression: Stage III MADHURI in the setting of sepsis & hypovolemia CKD IV with proteinuria (Baseline Cr 2.2) -No NSAIDs Hyponatremia, stable -Encourage nutrition Hypokalemia -Replete potassium prn HTN with CKD -Continue Amlodipine 5mg BID -Continue Hydralazine 50mg BID DM II with CKD -RISS Anemia in chronic illness -Monitor H&H -Retacrit MWF Slow transit constipation -Continue Colace BID -Lactulose X1 dose
[2022-05-16] MEDS: ZOLPIDEM TARTRATE 5 MG TABLET PO PRN (22:38)
[2022-05-17 05:35] LABS: Absolute Lymphocytes (CBC) 1.3 K/uL (0.7-4.9); Hematocrit 25.8 % (39.6-49.0); Lymphocytes % 5.8 % (15.3-44.8); MCV 96.4 fL (80-100); MPV 8.8 fL (7.6-11.3); RBC Red Blood Cell Count 2.68 M/uL (4.33-5.43)
[2022-05-17 05:53] LABS: Albumin 2.8 g/dL (3.4-5.0); Bilirubin Total 0.9 mg/dL (0.2-1.0); C-Reactive Protein 61.7 mg/L (<3.00); Magnesium 2.5 mg/dL (1.6-2.4); Phosphorus 1.5 mg/dL (2.5-4.9); Potassium 3.5 mmol/L (3.5-5.1); Protein, Total 7.4 g/dL (6.4-8.2)
[2022-05-17] MEDS: METOPROLOL XL 50 MG TAB PO SCH (06:00)
[2022-05-17 06:43] LABS: Anisocytosis 1+; Blood Morphology Comment NOTED (NOT SEEN); Platelet Estimate ADEQ; White Blood Cell Scan OK (OK)
[2022-05-17 06:44] LABS: Hypochromasia 1+; Macrocytosis SLIGHT; Ovalocytes 1+; Poikilocytosis 1+; Teardrop Cell 1+
[2022-05-17] MEDS: SUCRALFATE 1GM/10ML UCUP PO SCH ×4 (07:30→21:05)
[2022-05-17] MEDS: INSULIN -REGULAR HUMAN 50 UNIT/0.5 ML ML SQ SCH ×4 (07:30→21:00)
[2022-05-17] MEDS: AMLODIPINE 5 MG TAB PO SCH ×2 (07:57→21:06)
[2022-05-17] MEDS: HYDRALAZINE HCL 25 MG TABLET PO SCH ×2 (07:57→21:07)
[2022-05-17] MEDS: DOCUSATE NA 100 MG CAP PO SCH ×2 (07:57→21:06)
[2022-05-17] MEDS: AMINO ACIDS/PROTEIN HYDROLYS 30 ML LIQUID.PKT PO SCH ×2 (08:00→21:00)
--- NOTE | 2022-05-17 08:52 | P.PN ---
Subjective Date of Service: 05/17/22 Chief Complaint: Sepsis, acute renal failure Patient currently under EGD Physical Examination - Vital Signs Temperature: 99.0 F Blood Pressure: 153/71 Pulse: 91 Respirations: 18 Pulse Ox (%): 97 - Studies active medications Acetaminophen (Acetaminophen 325 Mg Tablet) 650 mg PO Q6H PRN PRN Reason: TEMP > 100' F Last Admin: 05/14/22 13:07 Dose: 650 mg Amino Acids (Amino Acids/Protein Hydrolys 30 Ml Liquid.Pkt) 30 ml PO BID [facility] Last Admin: 05/17/22 08:00 Dose: Not Given Amlodipine Besylate (Amlodipine 5 Mg Tab) 10 mg PO BID [facility] Last Admin: 05/17/22 07:57 Dose: Not Given Docusate Sodium (Docusate Na 100 Mg Cap) 100 mg PO BID [facility] Last Admin: 05/17/22 07:57 Dose: Not Given Epoetin Dimitri (Epoetin Dimitri 10,000 Unit/Ml Vial) 10,000 unit SQ M,W,F [facility] Last Admin: 05/15/22 21:26 Dose: 10,000 unit Heparin Sodium (Porcine) (Heparin 5000 Unit/Ml 1 Ml Vial) 5,000 unit SQ Q12HR [facility] Last Admin: 05/16/22 21:03 Dose: 5,000 unit Hydralazine HCl (Hydralazine Hcl 25 Mg Tablet) 50 mg PO BID [facility] Last Admin: 05/17/22 07:57 Dose: Not Given Dextrose (D10w 500 Ml Ivpb) 250 mls @ 0 mls/hr IV .Q0M [facility] Last Admin: 05/11/22 04:42 Dose: 250 mls Vancomycin HCl 1.5 gm/ Sodium (Chloride) 500 mls @ 333.333 mls/hr IVPB Q36H [facility] Last Admin: 05/16/22 10:35 Dose: 500 mls Cefepime HCl 1 gm/ Sodium (Chloride) 100 mls @ 200 mls/hr IV Q12HR [facility] Last Admin: 05/16/22 21:03 Dose: 100 mls Insulin Human Regular (Insulin -Regular Human 50 Unit/0.5 Ml Ml) 0 unit SQ ACHS [facility]; Protocol Last Admin: 05/16/22 21:04 Dose: 2 unit Metoprolol Succinate (Metoprolol Xl 50 Mg Tab) 50 mg PO [id number] [facility] Last Admin: 05/17/22 06:00 Dose: Not Given Ondansetron HCl (Ondansetron 4 Mg/2 Ml Vial) 4 mg IV Q6HP PRN PRN Reason: NAUSEA / VOMITING Last Admin: 05/16/22 21:05 Dose: 4 mg Pantoprazole Sodium (Pantoprazole 40 Mg Inj) 40 mg IVP Q12HR [facility]; Protocol Last Admin: 05/16/22 21:05 Dose: 40 mg Sodium Chloride (Flush Normal Saline 10 Ml) 10 ml IV BID [facility] Last Admin: 05/16/22 21:04 Dose: 10 ml Sodium Chloride (Sodium Chloride 0.9% 10ml Inj) 10 ml IV UD PRN PRN Reason: Diluant Sucralfate (Sucralfate 1gm/10ml Ucup) 1 gm PO ACHS [facility] Last Admin: 05/17/22 07:30 Dose: Not Given Zolpidem Tartrate (Zolpidem Tartrate 5 Mg Tablet) 5 mg PO BEDTIME PRN PRN PRN Reason: INSOMNIA Last Admin: 05/16/22 22:38 Dose: 5 mg Microbiology Data (last 24 hrs): Microbiology 05/10/22 15:30 Blood - Blood Aerobic Blood Culture - Final No growth in 5 days. 05/10/22 15:30 Blood - Blood Anaerobic Blood Culture - Final No growth in 5 days. 05/10/22 15:00 Blood - Blood Aerobic Blood Culture - Final No growth in 5 days. 05/10/22 15:00 Blood - Blood Anaerobic Blood Culture - Final No growth in 5 days. Assessment And Plan - Current Problems (Diagnosis) (1) Cellulitis Plan: Cellulitis with underlying psoriasis of the back/buttocks Cultures: - 05/10 UC: Pending for result - 05/10 BC: Negative Antibiotics: - Current on IV Cefepime and Vancomycin (05/10- ) Recommendations: - Stop IV Vancomycin - Add Linezolid - Continue IV Cefepime and Linezolid for total of 2 weeks duration (2) Leukocytosis Plan: WBC trending up Cultures: - 05/10 UC: Pending for result - 05/10 BC: Negative Antibiotics: - Stop IV Vancomycin - Add Linezolid - Continue IV Cefepime and Linezolid for total of 2 weeks duration - Plan - Severe sepsis secondary to cellulitis with underlying psoriasis of the back/buttocks: Continue IV antibiotics for total of 2 weeks duration - Leukocytosis: UC pending for result - Abdominal pain - Primary team notified and aware. CT: Unremarkable study except for limited assessment of the spleen, pancreas and aorta due to bowel gas - Acute renal failure superimposed on CKD 4 - Urinary retention - Diabetes mellitus type 2 - Hyperlipidemia - CKD 4 - Hypertension - Hyperlipidemia - Psoriasis - PAD - Anemia of chronic disease ID will closely monitor the patient for signs of infection with fever and WBC trends Case has been discussed with Dr. Argueta, N
[2022-05-17] MEDS: HEPARIN 5000 UNIT/ML 1 ML VIAL SQ SCH ×2 (09:00→21:07)
[2022-05-17] MEDS: CEFEPIME 1 GM in NA CHLORIDE 0.9% 100 ML IV SCH ×2 (09:00→21:05)
[2022-05-17] MEDS: PANTOPRAZOLE 40 MG INJ IVP SCH ×2 (09:00→21:08)
[2022-05-17] MEDS ORDERED: NA CHLORIDE 0.9% 500 ML ONE (09:50)
[2022-05-17] MEDS ORDERED: POTASS/SODIUM PHOSPHATE 1 PKT POWD.PACK PO ONE (10:30)
[2022-05-17] MEDS ORDERED: propofoL 200 MG/20 ML VIAL IV ONE (11:11)
[2022-05-17] MEDS ORDERED: LIDOCAINE 1% MPF 5 ML VIAL ONE (11:11)
[2022-05-17] MEDS: EPOETIN ALFA 10,000 UNIT/ML VIAL SQ SCH (16:45)
[2022-05-17] MEDS: LACTULOSE 20 GM/30 ML UCUP PO SCH ×2 (16:45→22:05)
--- NOTE | 2022-05-17 17:48 | P.PN ---
Subjective Date of Service: 05/17/22 Chief Complaint: Sepsis, acute renal failure Patient family states patient has been eating a bit more today. No bowel movement yet. No fever. He is able to ambulate to and from bathroom with one-person assist. WBC count is higher today. Physical Examination - Vital Signs Temperature: 99.1 F Blood Pressure: 157/67 Pulse: 84 Respirations: 18 Pulse Ox (%): 98 Assessment And Plan - Plan hysical exam GEN: Alert, oriented, NAD HEENT: Normal conjunctiva, sclera anicteric CV: Regular rate and rhythm, no edema Pulm: Clear to auscultation bilaterally ABD: Soft, moderate tenderness to palpation in epigastric region Skin: Psoriatic rash noted on bilateral lower extremities and lower back, no induration, multiple superficial small ulcers on right buttock; rash on b/l legs much improved. Neuro: Normal speech, normal affect Problem List Severe sepsis secondary to cellulitis with underlying psoriasis of the back/buttocks MADHURI superimposed on CKD 4 Urinary retention, new Diabetes mellitus type [id number] with hypoglycemia Hypertension Hyperlipidemia Esophagitis, h/o GERD chronic anemia, iron deficiency Severe sepsis No clear source of infection Differential diagnosis for sepsis include cellulitis as a complication of infected psoriatic skin lesions versus systemic inflammatory disease ID is following and treating with empiric vanc/cefepime. no extensive redness. no obvious pustules redness much improved CRP was up to 119. Procalcitonin level does not suggest active bacterial sepsis. Leukocytosis fluctuates. avoid steroids. Patient may need aggressive treatment of psoriasis in which case may need to be in the care of a welder fitter arc if he does not show significant clinical improvement. Acute renal failure superimposed on CKD 4 Urinary retention Possibly multifactorial secondary to prerenal from poor oral intake versus urinary retention Nephrology is following. Castro catheter is in place. nausea/vomiting/functional constipation Esophagitis signs seen on CT, h/o GERD. CT with changes noted at distal esophagus Seen by GI-Dr. Beaver. EGD demonstrated Zamora's esophagitis per GI Continue Protonix. Patient denies any abdominal pain Lactulose for constipation monitor bowel movement. Serial abdominal examination Diabetes mellitus type [id number] with hypoglycemia Hold oral antidiabetic agents due to episode of hypoglycemia. accucheks, sliding scale Hypertension Hyperlipidemia Continue home medications. avoid nephrotoxic meds Code status: Full
--- NOTE | 2022-05-17 18:17 | RAD REPORT ---
EXAM DESCRIPTION: RAD - Abdomen 1 View (KUB) - 05/17/2022 4:23 pm CLINICAL HISTORY: Constipation COMPARISON: Abdomen Exam Complete dated 05/15/2022 TECHNIQUE: Single AP view of the abdomen. FINDINGS: Nonobstructive bowel gas pattern. No air-fluid levels, free air, or pneumatosis. Mild stoo l burden in the proximal colon. No suspicious calcifications. No significant bony abnormality. IMPRESSION: Negative two view abdomen examination.
--- NOTE | 2022-05-17 19:29 | P.PN ---
Delayed entry note, pt had been out of room during rounds this morning for EGD. Chart checked and renal function and lytes stable. BP mod elevated but stable, cont to monitor.
[2022-05-17] MEDS: ZOLPIDEM TARTRATE 5 MG TABLET PO PRN (21:06)
[2022-05-17] MEDS: VANCOMYCIN 1.5 GM in NA CHLORIDE 0.9% 500 ML IVPB SCH (22:05)
[2022-05-18] MEDS: LACTULOSE 20 GM/30 ML UCUP PO SCH ×2 (03:38→10:00)
[2022-05-18] MEDS: METOPROLOL XL 50 MG TAB PO SCH (05:52)
[2022-05-18] MEDS: INSULIN -REGULAR HUMAN 50 UNIT/0.5 ML ML SQ SCH ×4 (07:30→21:00)
--- NOTE | 2022-05-18 08:18 | P.PN ---
Subjective Date of Service: 05/18/22 Chief Complaint: Sepsis, acute renal failure Patient lying in bed with son at the bedside. Stated that he is still constipated after some bowel regimen. Physical Examination - Vital Signs Temperature: 98.8 F Blood Pressure: 138/61 Pulse: 93 Respirations: 17 Pulse Ox (%): 96 - Physical Exam General: Alert, In no apparent distress, Oriented x3 Respiratory: Clear to auscultation bilaterally Cardiovascular: No edema, Normal S1 S2 Gastrointestinal: Normal bowel sounds, Hypoactive, Distended (mild) Musculoskeletal: No swelling, No erythema Integumentary: Erythema (secondary to psoriasis in the lower back) Neurological: Normal speech, Normal tone, Normal affect Urinary: Castro catheter (urine yellow and clean; should be removed if not contraindicated) - Studies active medications Acetaminophen (Acetaminophen 325 Mg Tablet) 650 mg PO Q6H PRN PRN Reason: TEMP > 100' F Last Admin: 05/14/22 13:07 Dose: 650 mg Amino Acids (Amino Acids/Protein Hydrolys 30 Ml Liquid.Pkt) 30 ml PO BID [facility] Last Admin: 05/17/22 21:00 Dose: Not Given Amlodipine Besylate (Amlodipine 5 Mg Tab) 10 mg PO BID [facility] Last Admin: 05/17/22 21:06 Dose: 10 mg Docusate Sodium (Docusate Na 100 Mg Cap) 100 mg PO BID [facility] Last Admin: 05/17/22 21:06 Dose: 100 mg Epoetin Dimitri (Epoetin Dimitri 10,000 Unit/Ml Vial) 10,000 unit SQ M,W,F [facility] Last Admin: 05/17/22 16:45 Dose: 10,000 unit Heparin Sodium (Porcine) (Heparin 5000 Unit/Ml 1 Ml Vial) 5,000 unit SQ Q12HR [facility] Last Admin: 05/17/22 21:07 Dose: 5,000 unit Hydralazine HCl (Hydralazine Hcl 25 Mg Tablet) 50 mg PO BID [facility] Last Admin: 05/17/22 21:07 Dose: 50 mg Dextrose (D10w 500 Ml Ivpb) 250 mls @ 0 mls/hr IV .Q0M [facility] Last Admin: 05/11/22 04:42 Dose: 250 mls Cefepime HCl 1 gm/ Sodium (Chloride) 100 mls @ 200 mls/hr IV Q12HR [facility] Last Admin: 05/17/22 21:05 Dose: 100 mls Vancomycin HCl 1.5 gm/ Sodium (Chloride) 500 mls @ 250 mls/hr IVPB Q48H [facility] Insulin Human Regular (Insulin -Regular Human 50 Unit/0.5 Ml Ml) 0 unit SQ [facility]; Protocol Last Admin: 05/17/22 21:00 Dose: Not Given Lactulose (Lactulose 20 Gm/30 Ml Ucup) 20 gm PO Q6H [facility] Last Admin: 05/18/22 03:38 Dose: 20 gm Metoprolol Succinate (Metoprolol Xl 50 Mg Tab) 50 mg PO [id number] [facility] Last Admin: 05/18/22 05:52 Dose: 50 mg Ondansetron HCl (Ondansetron 4 Mg/2 Ml Vial) 4 mg IV Q6HP PRN PRN Reason: NAUSEA / VOMITING Last Admin: 05/16/22 21:05 Dose: 4 mg Pantoprazole Sodium (Pantoprazole 40 Mg Inj) 40 mg IVP Q12HR [facility]; Protocol Last Admin: 05/17/22 21:08 Dose: 40 mg Sodium Chloride (Flush Normal Saline 10 Ml) 10 ml IV BID [facility] Last Admin: 05/17/22 21:07 Dose: 10 ml Sodium Chloride (Sodium Chloride 0.9% 10ml Inj) 10 ml IV UD PRN PRN Reason: Diluant Sucralfate (Sucralfate 1gm/10ml Ucup) 1 gm PO ACHS [facility] Last Admin: 05/17/22 21:05 Dose: 1 gm Zolpidem Tartrate (Zolpidem Tartrate 5 Mg Tablet) 5 mg PO BEDTIME PRN PRN PRN Reason: INSOMNIA Last Admin: 05/17/22 21:06 Dose: 5 mg Microbiology Data (last 24 hrs): Microbiology 05/10/22 15:30 Blood - Blood Aerobic Blood Culture - Final No growth in 5 days. 05/10/22 15:30 Blood - Blood Anaerobic Blood Culture - Final No growth in 5 days. 05/10/22 15:00 Blood - Blood Aerobic Blood Culture - Final No growth in 5 days. 05/10/22 15:00 Blood - Blood Anaerobic Blood Culture - Final No growth in 5 days. Imagings Data: RAD - Abdomen 1 View (KUB) - 05/17/2022 FINDINGS: Nonobstructive bowel gas pattern. No air-fluid levels, free air, or pneumatosis. Mild stool burden in the proximal colon. No suspicious calcifications. No significant bony abnormality. IMPRESSION: Negative two view abdomen examination Assessment And Plan - Current Problems (Diagnosis) (1) Cellulitis Plan: Cellulitis with underlying psoriasis of the back/buttocks Cultures: - 05/10 UC: Negative - 05/10 BC: Negative Antibiotics: - Current on IV Cefepime and Vancomycin (05/10- ) Recommendations: - Stop IV Vancomycin - Add Linezolid - Continue IV Cefepime and Linezolid for total of 2 weeks duration (2) Leukocytosis Plan: WBC trending up Cultures: - 05/10 UC: Negative - 05/10 BC: Negative Antibiotics: - Stop IV Vancomycin - Add Linezolid - Continue IV Cefepime and Linezolid for total of 2 weeks duration - Plan - Severe sepsis secondary to cellulitis with underlying psoriasis of the back/buttocks: Continue IV antibiotics for total of 2 weeks duration - Leukocytosis: UC negative - Psoriasis: Patient may need aggressive treatment of psoriasis in the care of a renal nurse if he does not show significant clinical improvement - Abdominal pain - Primary team notified and aware. CT: Unremarkable study except for limited assessment of the spleen, pancreas and aorta due to bowel gas - Acute renal failure superimposed on CKD 4 - Urinary retention - Diabetes mellitus type 2 - Hyperlipidemia - CKD 4 - Hypertension - Hyperlipidemia - PAD - Anemia of chronic disease ID will closely monitor the patient for signs of infection with fever and WBC trends Case has been discussed with Dr. Argueta, N
[2022-05-18] MEDS ORDERED: CEFEPIME 1 GM/VIAL ONE (08:56)
[2022-05-18] MEDS ORDERED: NA CHLORIDE 0.9% 100 ML ONE (08:58)
[2022-05-18] MEDS: AMINO ACIDS/PROTEIN HYDROLYS 30 ML LIQUID.PKT PO SCH (09:00)
[2022-05-18] MEDS: CEFEPIME 1 GM in NA CHLORIDE 0.9% 100 ML IV SCH ×2 (09:00→21:00)
[2022-05-18] MEDS: AMLODIPINE 5 MG TAB PO SCH ×2 (09:13→21:32)
[2022-05-18] MEDS: PANTOPRAZOLE 40 MG INJ IVP SCH ×2 (09:14→21:33)
[2022-05-18] MEDS: HEPARIN 5000 UNIT/ML 1 ML VIAL SQ SCH ×2 (09:14→21:31)
[2022-05-18] MEDS: HYDRALAZINE HCL 25 MG TABLET PO SCH ×2 (09:14→21:30)
[2022-05-18] MEDS: SUCRALFATE 1GM/10ML UCUP PO SCH ×4 (09:14→21:00)
[2022-05-18] MEDS: DOCUSATE NA 100 MG CAP PO SCH ×2 (09:15→21:31)
--- NOTE | 2022-05-18 12:19 | P.PN ---
Subjective Date of Service: 05/18/22 Chief Complaint: Sepsis, acute renal failure Patient reports abdominal discomfort. No bowel movement yet. Abdominal x-ray results reviewed and it reports scanty stool. No fever. Physical Examination - Vital Signs Temperature: 98.8 F Blood Pressure: 138/61 Pulse: 93 Respirations: 17 Pulse Ox (%): 96 Assessment And Plan - Plan hysical exam GEN: Alert, oriented, NAD HEENT: Normal conjunctiva, sclera anicteric CV: Regular rate and rhythm, no edema Pulm: Clear to auscultation bilaterally ABD: Soft, moderate tenderness to palpation in epigastric region Skin: Psoriatic rash noted on bilateral lower extremities and lower back, no induration, multiple superficial small ulcers on right buttock; rash on b/l legs much improved. Neuro: Normal speech, normal affect Problem List Severe sepsis secondary to cellulitis with underlying psoriasis of the back/buttocks MADHURI superimposed on CKD 4 Urinary retention, new Diabetes mellitus type [id number] with hypoglycemia Hypertension Hyperlipidemia Esophagitis, h/o GERD chronic anemia, iron deficiency Severe sepsis No clear source of infection Differential diagnosis for sepsis include cellulitis as a complication of infected psoriatic skin lesions versus systemic inflammatory disease ID is following and treating with empiric antibiotics. ID recommended switching vancomycin to Zyvox and continue cefepime. no extensive redness. no obvious pustules redness much improved CRP is trending down. Procalcitonin level does not suggest active bacterial sepsis. Leukocytosis fluctuates. Patient may need aggressive treatment of psoriasis in which case may need to be in the care of a appeals nurse if he does not show significant clinical improvement. Acute renal failure superimposed on CKD 4 Urinary retention Possibly multifactorial secondary to prerenal from poor oral intake versus urinary retention Nephrology is following. Castro catheter is in place. nausea/vomiting/functional constipation Esophagitis signs seen on CT, h/o GERD. CT with changes noted at distal esophagus Seen by GI-Dr. Beaver. EGD demonstrated Zamora's esophagitis per GI Continue Protonix. Patient feels constipated. No BM would lactulose. Discontinue lactulose. Repeat CT abdomen Diabetes mellitus type [id number] with hypoglycemia Hold oral antidiabetic agents due to episode of hypoglycemia. accucheks, sliding scale Hypertension Hyperlipidemia Continue home medications. Code status: Full
[2022-05-18 12:33] LABS: Absolute Lymphocytes (CBC) 1.3 K/uL (0.7-4.9); Hematocrit 25.6 % (39.6-49.0); Lymphocytes % 5.1 % (15.3-44.8); MCV 97.1 fL (80-100); MPV 8.5 fL (7.6-11.3); RBC Red Blood Cell Count 2.63 M/uL (4.33-5.43)
[2022-05-18 12:42] LABS: Potassium 3.6 mmol/L (3.5-5.1)
[2022-05-18] MEDS ORDERED: MORPHINE 2 MG/ML SYR IV ONE ×2 (15:15→20:47)
--- NOTE | 2022-05-18 15:29 | RAD REPORT ---
EXAM DESCRIPTION: CTAbdomen Pelvis Wo Contrast - 05/18/2022 2:20 pm CLINICAL HISTORY: with oral contrast COMPARISON: Abdomen Pelvis Wo Contrast dated 05/10/2022 TECHNIQUE: CT of the abdomen and pelvis was performed. All CT scans are performed using dose optimization technique as appropriate and may include automated exposure control or mA/KV adjustment according to patient size. FINDINGS: Lower chest: Small pleural effusions which are new from prior. Hiatal hernia. Liver: No acute abnormality or suspicious lesions. Biliary: No biliary ductal dilatation. Stomach: No significant focal abnormality. Duodenum: No significant focal abnormality. Pancreas: No significant abnormality. Spleen: No significant abnormality. Adrenal: No suspicious lesions. Kidney/ureter: No hydronephrosis. No renal calculi. Retroperitoneum: No retroperitoneal adenopathy. Vascular: No aneurysm. Bowel: Moderate rectal stool burden. Distal sigmoid and rectal wall thickening with perirectal strand ing is new from prior. Normal appendix.. Moderate colonic stool. Peritoneum: Small volume of ascites which is new prior. Bladder: The bladder is decompressed via Castro catheter. Reproductive: No adnexal masses. Bones: No acute fracture. Other: n/a IMPRESSION: 1. Moderate formed stool to distal sigmoid and rectum with wall thickening may reflect f ecal impaction and stercoral colitis. 2. Interval development of mild anasarca. This includes small effusions, ascites, and body wall edema .
[2022-05-18] MEDS ORDERED: MINERAL OIL ENEMA 135 ML BTL PR ONE (16:00)
--- NOTE | 2022-05-18 20:47 | P.PN ---
Date of Service: 05/18/22 Vital Signs Temp Pulse Resp BP Pulse Ox 99.5 F 104 H 18 121/66 97 05/18/22 16:00 05/18/22 16:00 05/18/22 16:00 05/18/22 16:00 05/18/22 16:00 Medications Acetaminophen (Acetaminophen 325 Mg Tablet) 650 mg PO Q6H PRN PRN Reason: TEMP > 100' F Last Admin: 05/14/22 13:07 Dose: 650 mg Amlodipine Besylate (Amlodipine 5 Mg Tab) 10 mg PO BID [facility] Last Admin: 05/18/22 09:13 Dose: 10 mg Docusate Sodium (Docusate Na 100 Mg Cap) 100 mg PO BID [facility] Last Admin: 05/18/22 09:15 Dose: 100 mg Epoetin Dimitri (Epoetin Dimitri 10,000 Unit/Ml Vial) 10,000 unit SQ M,W,F [facility] Last Admin: 05/17/22 16:45 Dose: 10,000 unit Heparin Sodium (Porcine) (Heparin 5000 Unit/Ml 1 Ml Vial) 5,000 unit SQ Q12HR [facility] Last Admin: 05/18/22 09:14 Dose: 5,000 unit Hydralazine HCl (Hydralazine Hcl 25 Mg Tablet) 50 mg PO BID [facility] Last Admin: 05/18/22 09:14 Dose: 50 mg Dextrose (D10w 500 Ml Ivpb) 250 mls @ 0 mls/hr IV .Q0M [facility] Last Admin: 05/11/22 04:42 Dose: 250 mls Cefepime HCl 1 gm/ Sodium (Chloride) 100 mls @ 200 mls/hr IV Q12HR [facility] Last Admin: 05/18/22 09:00 Dose: 100 mls Vancomycin HCl 1.5 gm/ Sodium (Chloride) 500 mls @ 250 mls/hr IVPB Q48H [facility] Insulin Human Regular (Insulin -Regular Human 50 Unit/0.5 Ml Ml) 0 unit SQ ACHS [facility]; Protocol Last Admin: 05/18/22 16:38 Dose: 2 unit Metoprolol Succinate (Metoprolol Xl 50 Mg Tab) 50 mg PO [id number] [facility] Last Admin: 05/18/22 05:52 Dose: 50 mg Nutritional Formula (Ensure High Protein 237 Ml Can) 237 ml PO BID [facility] Ondansetron HCl (Ondansetron 4 Mg/2 Ml Vial) 4 mg IV Q6HP PRN PRN Reason: NAUSEA / VOMITING Last Admin: 05/16/22 21:05 Dose: 4 mg Pantoprazole Sodium (Pantoprazole 40 Mg Inj) 40 mg IVP Q12HR [facility]; Protocol Last Admin: 05/18/22 09:14 Dose: 40 mg Sodium Chloride (Flush Normal Saline 10 Ml) 10 ml IV BID [facility] Last Admin: 05/18/22 09:00 Dose: Not Given Sodium Chloride (Sodium Chloride 0.9% 10ml Inj) 10 ml IV UD PRN PRN Reason: Diluant Sucralfate (Sucralfate 1gm/10ml Ucup) 1 gm PO ACHS [facility] Last Admin: 05/18/22 16:37 Dose: 1 gm Zolpidem Tartrate (Zolpidem Tartrate 5 Mg Tablet) 5 mg PO BEDTIME PRN PRN PRN Reason: INSOMNIA Last Admin: 05/17/22 21:06 Dose: 5 mg Microbiology Results 05/10/22 15:30 Blood - Blood Aerobic Blood Culture - Final No growth in 5 days. 05/10/22 15:30 Blood - Blood Anaerobic Blood Culture - Final No growth in 5 days. 05/10/22 15:00 Blood - Blood Aerobic Blood Culture - Final No growth in 5 days. 05/10/22 15:00 Blood - Blood Anaerobic Blood Culture - Final No growth in 5 days. Assessment/ Plan: Nephrology No dyspnea or chest pain Persistent malaise and abd pain No acute events overnight Vitals, medications, blood work and imaging reviewed in the chart General: Oriented x3, Cooperative HEENT: Atraumatic Neck: Supple Respiratory: Normal air movement Cardiovascular: No edema, Regular rate/rhythm Gastrointestinal: Distended and tender Musculoskeletal: No clubbing, No contractures Integumentary: No rashes, No cyanosis Neurological: Normal speech Blood work reviewed in the chart. Imagings Data: EXAM DESCRIPTION: US - Renal Ultrasound-Complete - 05/11/2022 12:33 am CLINICAL HISTORY: ARF COMPARISON: Renal Ultrasound-Complete dated 07/12/2017 FINDINGS: Both kidneys are normal in size, shape and echotexture. The right kidney measures 9.0 x 5.4 x 3.8 cm. No hydronephrosis, focal mass or perinephric fluid. The left kidney measures 9.8 x 5.4 x 4.0 cm. 12 mm benign cyst. No hydronephrosi s, focal mass or perinephric fluid. The urinary bladder is incompletely distended without gross abnormality seen. IMPRESSION: Benign left renal cysts, otherwise negative study. EXAM DESCRIPTION: CTAbdomen Pelvis Wo Contrast - 05/10/2022 5:42 pm CLINICAL HISTORY: ABD PAIN COMPARISON: None TECHNIQUE: CT of the abdomen and pelvis was performed. All CT scans are performed using dose optimization technique as appropriate and may include automated exposure control or mA/KV adjustment according to patient size. FINDINGS: Lower chest: Hiatal hernia. Circumferential thickened distal esop hagus. Coronary artery calcifications. Trace pericardial effusion. Mild cardiomegaly. Liver: No acute abnormality or suspicious lesions. Biliary: No biliary ductal dilatation. Stomach: No significant focal abnormality. Duodenum: No significant focal abnormality. Pancreas: No significant abnormality. Spleen: No significant abnormality. Adrenal: No suspicious lesions. Kidney/ureter: No hydronephrosis. Punctate stone in the upper pole right kidney. Too small to characterize and/or benign appearing renal lesions are noted. Mild nonspecific perinephric stranding. Retroperitoneum: No retroperitoneal adenopathy. Vascular: No aneurysm. Atherosclerosis. Bowel: Moderate colonic stool.. Normal appendix. Peritoneum: No ascites or free air. Bladder: Grossly unremarkable. Reproductive: No adenopathy or masses Bones: No acute fracture. Multilevel degenerative changes are present in the spine. Other: n/a IMPRESSION: No acute intra-abdominal or pelvic finding. Nonobstructive right nephrolithiasis. Normal appendix. Possible constipation. ADDENDUM: 4.6 cm x 1.9 cm structure ventral to the right common femoral artery and common femoral vein corresponding with the finding on the same-day ultrasound. This has a area of hyperattenuation likely reflecting hemorrhage or sequela of prior hemorrhage. The patient reportedly had a prior right inguinal vascular access procedure and this may be sequela of that procedure. Reference ultrasound for additional findings EXAM DESCRIPTION: RAD - Chest Single View - 05/10/2022 1:52 pm CLINICAL HISTORY: FEVER COMPARISON: Chest Pa And Lat (2 Views) dated 04/17/2022 FINDINGS: Lines: None. Lungs: No evidence of edema or pneumonia. Pleural: No significant pleural effusions or pneumothorax. Cardiac: The heart size is within normal limits. Mediastinum: Within normal limits. Bones: No acute fractures. Other: None IMPRESSION: No acute cardiopulmonary disease. [facility] EXAM DESCRIPTION: CTAbdomen Pelvis Wo Contrast - 05/18/2022 2:20 pm CLINICAL HISTORY: with oral contrast COMPARISON: Abdomen Pelvis Wo Contrast dated 05/10/2022 TECHNIQUE: CT of the abdomen and pelvis was performed. All CT scans are performed using dose optimization technique as appropriate and may include automated exposure control or mA/KV adjustment according to patient size. FINDINGS: Lower chest: Small pleural effusions which are new from prior. Hiatal hernia. Liver: No acute abnormality or suspicious lesions. Biliary: No biliary ductal dilatation. Stomach: No significant focal abnormality. Duodenum: No significant focal abnormality. Pancreas: No significant abnormality. Spleen: No significant abnormality. Adrenal: No suspicious lesions. Kidney/ureter: No hydronephrosis. No renal calculi. Retroperitoneum: No retroperitoneal adenopathy. Vascular: No aneurysm. Bowel: Moderate rectal stool burden. Distal sigmoid and rectal wall thickening with perirectal stranding is new from prior. Normal appendix.. Moderate colonic stool. Peritoneum: Small volume of ascites which is new prior. Bladder: The bladder is decompressed via Castro catheter. Reproductive: No adnexal masses. Bones: No acute fracture. Other: n/a IMPRESSION: 1. Moderate formed stool to distal sigmoid and rectum with wall thickening may reflect fecal impaction and stercoral colitis. 2. Interval development of mild anasarca. This includes small effusions, ascites, and body wall edema. Doppler Renal US 01/16/20:Negative MODE. Right kidney 10.1cm. Left 10.2cm. Simple right renal cyst. Bladder US 01/16/20:No mass. PVR 14ml. Renal US 07/12/17:Right kidney 9cm; Left 10 cm. Right renal cyst. No hydronephrosis. Conclusions/Impression: Stage III MADHURI in the setting of sepsis & hypovolemia CKD IV with proteinuria (Baseline Cr 2.2) -No NSAIDs Hyponatremia, stable -Encourage nutrition Hypokalemia -Replete potassium prn HTN with CKD -Continue Amlodipine 5mg BID -Continue Hydralazine 50mg BID DM II with CKD -RISS Anemia in chronic illness -Monitor H&H -Retacrit MWF Slow transit constipation Fecal impaction? -Continue Colace BID -Agree with mineral oil enema -Mineral Oil PO X1
[2022-05-18] MEDS ORDERED: MINERAL OIL 30 ML UCUP PO ONE (20:48)
[2022-05-18] MEDS: ENSURE HIGH PROTEIN 237 ML CAN PO SCH (21:00)
[2022-05-18] MEDS: ACETAMINOPHEN 325 MG TABLET PO PRN (21:29)
[2022-05-18] MEDS: ZOLPIDEM TARTRATE 5 MG TABLET PO PRN (21:34)
[2022-05-19 04:11] LABS: Absolute Lymphocytes (CBC) 1.8 K/uL (0.7-4.9); Hematocrit 26.4 % (39.6-49.0); Lymphocytes % 7.4 % (15.3-44.8); MCV 96.3 fL (80-100); MPV 8.8 fL (7.6-11.3); RBC Red Blood Cell Count 2.74 M/uL (4.33-5.43)
[2022-05-19 04:23] LABS: Potassium 3.6 mmol/L (3.5-5.1)
[2022-05-19] MEDS: METOPROLOL XL 50 MG TAB PO SCH (05:00)
[2022-05-19] MEDS: CEFEPIME 1 GM in NA CHLORIDE 0.9% 100 ML IV SCH ×2 (09:00→20:29)
[2022-05-19] MEDS: PANTOPRAZOLE 40 MG INJ IVP SCH ×2 (09:12→20:29)
[2022-05-19] MEDS: HYDRALAZINE HCL 25 MG TABLET PO SCH ×2 (09:13→20:28)
[2022-05-19] MEDS: HEPARIN 5000 UNIT/ML 1 ML VIAL SQ SCH ×2 (09:13→20:28)
[2022-05-19] MEDS: DOCUSATE NA 100 MG CAP PO SCH ×2 (09:14→20:28)
[2022-05-19] MEDS: AMLODIPINE 5 MG TAB PO SCH ×2 (09:14→20:28)
[2022-05-19] MEDS: ACETAMINOPHEN 325 MG TABLET PO PRN ×2 (09:15→20:28)
[2022-05-19] MEDS: INSULIN -REGULAR HUMAN 50 UNIT/0.5 ML ML SQ SCH ×4 (09:15→20:29)
[2022-05-19] MEDS: SUCRALFATE 1GM/10ML UCUP PO SCH ×4 (09:15→20:33)
[2022-05-19] MEDS: ENSURE HIGH PROTEIN 237 ML CAN PO SCH ×2 (09:16→20:29)
[2022-05-19] MEDS ORDERED: GOLYTELY 4000 ML PO SCH (11:00)
[2022-05-19] MEDS ORDERED: MINERAL OIL ENEMA 135 ML BTL PR SCH (11:00)
[2022-05-19] MEDS ORDERED: MORPHINE 4 MG/ML SYR IV ONE ×2 (11:42→15:05)
--- NOTE | 2022-05-19 12:06 | P.PN ---
(S) Pt reports rectal pain, pressure, has not had any BM yet despite enemas yesterday. Golytely ordered by GI (O) Vitals reviewed in the EMR General: Oriented x3, Cooperative HEENT: Atraumatic, sclera anicteric Neck: Supple Respiratory: Normal air movement, b/l air entry Cardiovascular: No edema, Regular rate/rhythm Gastrointestinal: Soft, mild distention, NT Musculoskeletal: No clubbing, No contractures Integumentary: No rashes, No cyanosis Neurological: Normal speech, awake, alert, non focal Labs: Blood work reviewed in the chart. Imagings Data: EXAM DESCRIPTION: US - Renal Ultrasound-Complete - 05/11/2022 12:33 am CLINICAL HISTORY: ARF COMPARISON: Renal Ultrasound-Complete dated 07/12/2017 FINDINGS: Both kidneys are normal in size, shape and echotexture. The right kidney measures 9.0 x 5.4 x 3.8 cm. No hydronephrosis, focal mass or perinephric fluid. The left kidney measures 9.8 x 5.4 x 4.0 cm. 12 mm benign cyst. No hydronephrosis, focal mass or perinephric fluid. The urinary bladder is incompletely distended without gross abnormality seen. IMPRESSION: Benign left renal cysts, otherwise negative study. EXAM DESCRIPTION: CTAbdomen Pelvis Wo Contrast - 05/10/2022 5:42 pm CLINICAL HISTORY: ABD PAIN COMPARISON: None TECHNIQUE: CT of the abdomen and pelvis was performed. All CT scans are performed using dose optimization technique as appropriate and may include automated exposure control or mA/KV adjustment according to patient size. FINDINGS: Lower chest: Hiatal hernia. Circumferential thickened distal esophagus. Coronary artery calcifications. Trace pericardial effusion. Mild cardiomegaly. Liver: No acute abnormality or suspicious lesions. Biliary: No biliary ductal dilatation. Stomach: No significant focal abnormality. Duodenum: No significant focal abnormality. Pancreas: No significant abnormality. Spleen: No significant abnormality. Adrenal: No suspicious lesions. Kidney/ureter: No hydronephrosis. Punctate stone in the upper pole right kidney. Too small to characterize and/or benign appearing renal lesions are noted. Mild nonspecific perinephric stranding. Retroperitoneum: No retroperitoneal adenopathy. Vascular: No aneurysm. Atherosclerosis. Bowel: Moderate colonic stool.. Normal appendix. Peritoneum: No ascites or free air. Bladder: Grossly unremarkable. Reproductive: No adenopathy or masses Bones: No acute fracture. Multilevel degenerative changes are present in the spine. Other: n/a IMPRESSION: No acute intra-abdominal or pelvic finding. Nonobstructive right nephrolithiasis. Normal appendix. Possible constipation. ADDENDUM: 4.6 cm x 1.9 cm structure ventral to the right common femoral artery and common femoral vein corresponding with the finding on the same-day ultrasound. This has a area of hyperattenuation likely reflecting hemorrhage or sequela of prior hemorrhage. The patient reportedly had a prior right inguinal vascular access procedure and this may be sequela of that procedure. Reference ultrasound for additional findings Doppler Renal US 01/16/20:Negative MODE. Right kidney 10.1cm. Left 10.2cm. Simple right renal cyst. Bladder US 01/16/20:No mass. PVR 14ml. Renal US 07/12/17:Right kidney 9cm; Left 10 cm. Right renal cyst. No hydronephrosis. Conclusions/Impression: A/P) Stage III ARF with presenting Cr level > 4 mg/dl in the setting of pre-renal state, diuretic use, ARB use, early sepsis, other CKD IV with proteinuria (Baseline Cr 2.2-2.5) -Cr level has trended to baseline levels and remain stable, cont to hold MODE inhibitor. Monitor lytes with enemas/laxatives administered for constipation HTN with CKD -BP improved Fevers, unspecified. Leukocytosis, unspecified Infectious w/u and management per ID, mckinley removed. Jose Vargas MD, JESSICA
--- NOTE | 2022-05-19 13:45 | P.PN ---
Subjective Date of Service: 05/19/22 Chief Complaint: Sepsis, acute renal failure Patient reports pain in the rectal area. Patient was given enema yesterday. He reports only a small bowel movement. CT abdomen pelvis results reviewed and report retained stool in the rectum and sigmoid. No fever. Physical Examination - Vital Signs Temperature: 98.5 F Blood Pressure: 130/59 Pulse: 86 Respirations: 18 Pulse Ox (%): 97 Assessment And Plan - Plan hysical exam GEN: Alert, oriented, NAD HEENT: Normal conjunctiva, sclera anicteric CV: Regular rate and rhythm, no edema Pulm: Clear to auscultation bilaterally ABD: Soft, moderate tenderness to palpation in epigastric region Skin: Psoriatic rash noted on bilateral lower extremities and lower back, no induration, multiple superficial small ulcers on right buttock; rash on b/l legs much improved. Neuro: Normal speech, normal affect Problem List Severe sepsis secondary to cellulitis with underlying psoriasis of the back/buttocks MADHURI superimposed on CKD 4 Urinary retention, new Diabetes mellitus type [id number] with hypoglycemia Hypertension Hyperlipidemia Esophagitis, h/o GERD chronic anemia, iron deficiency Severe sepsis No clear source of infection Differential diagnosis for sepsis include cellulitis as a complication of infected psoriatic skin lesions versus systemic inflammatory disease ID is following and treating with empiric antibiotics. ID recommended switching vancomycin to Zyvox and continue cefepime. Add Flagyl due to CT scan reported stercoral colitis no obvious psoriatic pustules redness much improved CRP is trending down. Procalcitonin level does not suggest active bacterial sepsis. Leukocytosis fluctuates. Patient may need aggressive treatment of psoriasis in which case may need to be in the care of a licensed practical nurse if he does not show significant clinical improvement. Transfer to [facility]. Acute renal failure superimposed on CKD 4 Urinary retention Possibly multifactorial secondary to prerenal from poor oral intake versus urinary retention Nephrology is following. Castro catheter is in place. nausea/vomiting/functional constipation Esophagitis signs seen on CT, h/o GERD. CT with changes noted at distal esophagus Seen by GI-Dr. Beaver. EGD demonstrated Zamora's esophagitis per GI Continue Protonix. Patient feels constipated. No BM would lactulose. Discontinue lactulose. Repeat CT abdomen shows retained stool in the rectum and sigmoid colon. I attempted fecal disimpaction but the stool in the rectum was not hard enough to easily evacuate them. I had to stop because of pain. We will manage with serial enemas and oral GoLytely. Diabetes mellitus type [id number] with hypoglycemia Hold oral antidiabetic agents due to episode of hypoglycemia. accucheks, sliding scale Hypertension Hyperlipidemia Continue home medications. Code status: Full
--- NOTE | 2022-05-19 15:05 | PN ---
Subjective: The patient running low-grade fever of 100, complains of constipation. Otherwise, no ot her specific complaints. Objective: Vital Signs: Temperature 100, pulse 98, respirations 18, blood pressure 130/71. Lungs: Basal crackles. Heart: S1, S2. Regular. Abdomen: Soft. Bowel sounds present. Extremity: Trace edema. Laboratory Data: Shows WBC 24,000, hemoglobin 8.6, platelets 377. Chemistry shows BUN 41, creatinin e 2.27. Urinalysis not available. Medications: Currently on vancomycin and cefepime. Assessment And Plan: Cultures showing no growth. We will recommend to repeat blood cultures. Cellu litis with underlying psoriasis, leukocytosis not improving. Currently on vancomycin and cefepime. Recommend to add Zyvox and continue cefepime at this time. Colitis on CT abdomen, chronic kidney dis ease 4, urinary retention, diabetes mellitus, anemia of chronic disease, moderate protein-calorie mal nourishment. Continue supportive care. Repeat cultures. We will follow the patient as needed. NF/MODL Voice ID: [id number] Report ID: [id number]
[2022-05-19] MEDS: METRONIDAZOLE 500mg IVPB 500 MG/100 ML BAG IV SCH (16:27)
[2022-05-19] MEDS ORDERED: LIDOCAINE JELLY 2%- 5 ML TUBE TOP ONE ×2 (17:05)
[2022-05-19] MEDS: EPOETIN ALFA 10,000 UNIT/ML VIAL SQ SCH (18:37)
[2022-05-19] MEDS ORDERED: VANCOMYCIN 1.5 GM in NA CHLORIDE 0.9% 500 ML IVPB SCH ×4 (22:00)
[2022-05-20] MEDS: METRONIDAZOLE 500mg IVPB 500 MG/100 ML BAG IV SCH ×2 (01:17→09:32)
[2022-05-20 03:01] LABS: Absolute Lymphocytes (CBC) 1.1 K/uL (0.7-4.9); Hematocrit 24.5 % (39.6-49.0); Lymphocytes % 5.1 % (15.3-44.8); MCV 97.1 fL (80-100); MPV 8.4 fL (7.6-11.3); RBC Red Blood Cell Count 2.52 M/uL (4.33-5.43)
[2022-05-20 03:15] LABS: Potassium 3.7 mmol/L (3.5-5.1)
[2022-05-20 05:52] VITALS: O2SAT 98
[2022-05-20] MEDS: METOPROLOL XL 50 MG TAB PO SCH (06:15)
[2022-05-20] MEDS: SUCRALFATE 1GM/10ML UCUP PO SCH ×2 (07:29→11:58)
[2022-05-20 08:56] VITALS: BP 135/68; TEMP 99.2
[2022-05-20] MEDS: HYDRALAZINE HCL 25 MG TABLET PO SCH (09:32)
[2022-05-20] MEDS: DOCUSATE NA 100 MG CAP PO SCH (09:33)
[2022-05-20] MEDS: HEPARIN 5000 UNIT/ML 1 ML VIAL SQ SCH (09:33)
[2022-05-20] MEDS: AMLODIPINE 5 MG TAB PO SCH (09:33)
[2022-05-20] MEDS: ENSURE HIGH PROTEIN 237 ML CAN PO SCH (09:34)
[2022-05-20] MEDS: INSULIN -REGULAR HUMAN 50 UNIT/0.5 ML ML SQ SCH ×2 (09:34→11:59)
[2022-05-20] MEDS: PANTOPRAZOLE 40 MG INJ IVP SCH (09:35)
[2022-05-20] MEDS: CEFEPIME 1 GM in NA CHLORIDE 0.9% 100 ML IV SCH (10:04)
--- NOTE | 2022-05-20 10:44 | P.DS ---
Admission Date: 05/10/22 Discharge Date: 05/20/22 Disposition: TRANSFER TO [facility] Discharge Condition: FAIR Reason for Admission: Sepsis, acute renal failure Brief History of Present Illness: 81-year-old male with history of CKD 4, evf-kbmueho-arehbxryb diabetes, hypertension, hyperlipidemia, psoriasis presented to the emergency department for fever, right lower extremity pain, back pain. He was evaluated in the emergency department his labs were significant for leukocytosis with a white blood cell count of 17.9 hemoglobin 9.2 hematocrit 28.4 acute renal failure with creatinine of 4.54, GFR 12 last GFR performed late last month was 24 lactic acid 1.6. Patient had recent right lower extremity angiogram performed on 04/20/2022 which showed mild PAD, patient developed a postoperative hematoma to the right groin/thigh area. His chest x-ray is unremarkable no hemodynamically significant arterial stenosis was identified in the right lower extremity by ultrasound, venous ultrasound was performed which revealed no DVT in the right lower extremity, hypoechoic fluid collection in the right groin just anterior to the right common femoral artery and vein. It could be from a prior vascular access procedure. No flow identified to suggest presence of a pseudoaneurysm. CT abdomen pelvis was then performed IV contrast which showed 4.6 cm x 1.9 cm structure ventral to the right common femoral artery and common femoral vein corresponding with the finding on the same-day ultrasound. This has a area of hyperattenuation likely reflecting hemorrhage or sequela of prior hemorrhage. The patient had a prior right inguinal vascular access procedure and this may be sequela of that procedure. Patient reported a recent dental procedure approximately 2 weeks prior and also has erythema to the areas of psoriasis he previously had on his lower back/buttocks area. Patient met criteria for sepsis. Also noted elevated creatinine above baseline suggestion MADHURI. He was given broad-spectrum antibiotics vancomycin/cefepime and admitted for further management. Hospital Course: Diagnosis Severe sepsis secondary to cellulitis with underlying psoriasis of the back/buttocks MADHURI superimposed on CKD 4 Urinary retention, new Diabetes mellitus type [id number]-darxjenus with hypoglycemia Hypertension Hyperlipidemia Esophagitis, h/o GERD chronic anemia, iron deficiency Severe sepsis No clear source of infection Differential diagnosis for sepsis include cellulitis as a complication of infected psoriatic skin lesions versus systemic inflammatory disease ID followed and treating him with empiric antibiotics.-IV vancomycin and cefepime and later switched to IV Zyvox and cefepime plus metronidazole. Repeat CT demonstrated constipation with stercoral colitis. no obvious psoriatic pustules Erythema much improved CRP peaked at 205 and then trended down. Procalcitonin level was 0.3 which did not indicate suggest active bacterial sepsis. Leukocytosis fluctuated Patient may need aggressive treatment of psoriasis with systemic symptoms in which case may need to be in the care of a compress engineer. Transfer to [facility] initiated. Patient has been accepted for transfer. Patient consented to the transfer. Vitals are stable for discharge. Acute renal failure superimposed on CKD 4 Urinary retention Possibly multifactorial secondary to prerenal from poor oral intake versus urinary retention Nephrology followed patient. Castro catheter is in place. nausea/vomiting/functional constipation Esophagitis signs seen on CT, h/o GERD. CT with changes noted at distal esophagus Seen by GI-Dr. Beaver. EGD demonstrated Zamora's esophagitis per GI Patient treated with IV Protonix and oral sucralfate. Patient was constipated for several days. Constipation was finally relieved after multiple enemas and oral laxatives. Diabetes mellitus type 3zol-dyyprzy-gtyeqovdh with hypoglycemia Held oral antidiabetic agents due to episode of hypoglycemia. Blood sugar was managed with insulin sliding scale. Hypertension/Hyperlipidemia Continued home medications. Hematoma -Right groin -Status post prior angiogram. -Stable. Vital Signs/Physical Exam: Temp Pulse Resp BP Pulse Ox 99.2 F 50 16 135/68 98 05/20/22 08:00 05/20/22 09:33 05/20/22 08:00 05/20/22 09:33 05/20/22 08:00 General: Alert, In no apparent distress, Oriented x3 HEENT: Mucous membr. moist/pink Neck: JVD not distended Respiratory: Clear to auscultation bilaterally, Normal air movement Cardiovascular: No edema, Regular rate/rhythm, Normal S1 S2 Gastrointestinal: Normal bowel sounds, Soft and benign, No tenderness Musculoskeletal: No swelling Integumentary: Other (Psoriatic rash lower back, sacral, bilateral gluteal area and posterior aspect of bilateral thighs.) Neurological: Other (No focal motor deficit.) Laboratory Data at Discharge: WBC 21.70 K/uL (4.3-10.9) H* 05/20/22 02:40 Hgb 8.1 g/dL (13.6-17.9) L 05/20/22 02:40 Hct 24.5 % (39.6-49.0) L 05/20/22 02:40 Plt Count 381 K/uL (152-406) 05/20/22 02:40 PT 12.5 SECONDS (9.5-12.5) 05/10/22 15:00 INR 1.14 05/10/22 15:00 APTT 30.4 SECONDS (24.3-36.9) 05/10/22 15:00 Sodium 134 mmol/L (136-145) L 05/20/22 02:40 Potassium 3.7 mmol/L (3.5-5.1) 05/20/22 02:40 BUN 47 mg/dL (7-18) H 05/20/22 02:40 Creatinine 2.45 mg/dL (0.70-1.30) H 05/20/22 02:40 Glucose 318 mg/dL (74-106) H 05/20/22 02:40 Uric Acid 6.0 mg/dL (3.5-7.2) 05/17/22 05:25 Phosphorus 1.5 mg/dL (2.5-4.9) L 05/17/22 05:25 Magnesium 2.5 mg/dL (1.6-2.4) H 05/17/22 05:25 Total Bilirubin 0.9 mg/dL (0.2-1.0) 05/17/22 05:25 AST 30 U/L (15-37) 05/17/22 05:25 ALT 32 U/L (16-61) 05/17/22 05:25 Alkaline Phosphatase 125 U/L (45-117) H D 05/17/22 05:25 Lipase 312 U/L (73-393) 05/16/22 03:19 Home Medications: Allopurinol 300 mg PO DAILY 04/17/22 Hydralazine HCl 50 mg PO BID 04/17/22 Acetaminophen [Tylenol*] 650 mg PO Q6H PRN tab 05/20/22 Amlodipine [Norvasc*] 10 mg PO DAILY #30 tab 05/20/22 Docusate [Colace Cap*] 100 mg PO BID cap 05/20/22 Ensure High Protein 237 ml PO BID can 05/20/22 Epoetin [Retacrit] 10,000 unit SQ M,W,F vial 05/20/22 Hydralazine [Apresoline*] 50 mg PO BID tab 05/20/22 Insulin -Regular Human [Novolin -R*] See Protocol SQ ACHS ml 05/20/22 Metoprolol Succinate [Toprol Xl*] 50 mg PO [id number] tab 05/20/22 Pantoprazole Inj [Protonix IV*] 40 mg IVP Q12HR vial 05/20/22 Sucralfate [Carafate*] 10 ml PO ACHS 05/20/22 New Medications: Amlodipine [Norvasc*] 10 mg PO DAILY #30 tab Followup: Matthew Sutherland DO [Primary Care Provider] - Time spent managing pt's care (in minutes): 35
== END 2022-05-20 12:37 | disposition short-term general hospital (02) | DRG 872 ==
LOC: ER 12:34 → ERHOLD 20:32 → 2ND 05-11 00:10
PROVIDERS: ADMIT Hospitalist; ATTEND Internal Medicine
PROC: 0DB38ZX Excision of Lower Esophagus, Via Natural or Artificial Opening Endoscopic, Diagnostic (ICD-10-PCS; 2022-05-17)
PROC: 0DB78ZX Excision of Stomach, Pylorus, Via Natural or Artificial Opening Endoscopic, Diagnostic (ICD-10-PCS; principal; 2022-05-17 10:00)
DX: A41.9 Sepsis, unspecified organism (principal); N17.9 Acute kidney failure, unspecified; N18.4 Chronic kidney disease, stage 4 (severe); L03.317 Cellulitis of buttock; I97.630 Postprocedural hematoma of a circulatory system organ or structure following a cardiac catheterization; E87.1 Hypo-osmolality and hyponatremia; E44.0 Moderate protein-calorie malnutrition; R65.20 Severe sepsis without septic shock; K22.70 Barrett's esophagus without dysplasia; K29.70 Gastritis, unspecified, without bleeding; I12.9 Hypertensive chronic kidney disease with stage 1 through stage 4 chronic kidney disease, or unspecified chronic kidney disease; E11.22 Type 2 diabetes mellitus with diabetic chronic kidney disease; E11.649 Type 2 diabetes mellitus with hypoglycemia without coma; D63.1 Anemia in chronic kidney disease; K44.9 Diaphragmatic hernia without obstruction or gangrene; K21.00 Gastro-esophageal reflux disease with esophagitis, without bleeding; I48.91 Unspecified atrial fibrillation; K59.01 Slow transit constipation; L40.9 Psoriasis, unspecified; E78.5 Hyperlipidemia, unspecified; R33.9 Retention of urine, unspecified; Z68.27 Body mass index [BMI] 27.0-27.9, adult; Z79.84 Long term (current) use of oral hypoglycemic drugs; Z79.899 Other long term (current) drug therapy; Z28.310 Unvaccinated for COVID-19; Z20.822 Contact with and (suspected) exposure to COVID-19; Y83.8 Other surgical procedures as the cause of abnormal reaction of the patient, or of later complication, without mention of misadventure at the time of the procedure
CPT/HCPCS: 0240U; 36415; 51702; 71045; 74018; 74176; 76700; 76770; 80048; 80053; 80202; 81003; 81015; 82550; 82947; 83036; 83605; 83690; 83735; 84100; 84145; 84439; 84443; 84550; 85025; 85610; 85730; 86140; 87040; 87086; 87088; 88305; 88312; 93005; 93306; 93926; 93971; 96365; 96375; 99285; C9113; J0692; J1644; J1815; J2001; J2250; J2270; J2405; J2704; J3370; J7030; J7040; J7050; J7799; Q5106; U0003

== ENCOUNTER 2023-02-28 12:57 | Emergency (ER) | payer OTHER ==
[2023-02-28 13:39] LABS: Hematocrit 22.9 % (39.6-49.0); Lymphocytes % 13.1 % (15.3-44.8); MCV 103.3 fL (80-100); MPV 8.4 fL (7.6-11.3); Platelets 347 thou/uL (152-406); RBC Red Blood Cell Count 2.22 M/uL (4.33-5.43)
--- NOTE | 2023-02-28 13:48 | RAD REPORT ---
EXAM DESCRIPTION: RAD - Chest Single View - 02/28/2023 1:27 pm CLINICAL HISTORY: DYSPNEA Chest pain. COMPARISON: Abdomen 1 View (KUB) dated 05/17/2022; Chest Single View dated 05/10/2022; Chest Pa And La t (2 Views) dated 04/17/2022 FINDINGS: Portable technique limits examination quality. The lungs are grossly clear. The heart is normal in size. No displaced fractures. IMPRESSION: No acute intrathoracic process suspected.
[2023-02-28 13:49] LABS: Protime INR 1.08
[2023-02-28 13:58] LABS: Albumin 3.1 g/dL (3.4-5.0); Bilirubin Total 0.3 mg/dL (0.2-1.0); Potassium 4.2 mEq/L (3.5-5.1); Protein, Total 7.6 g/dL (6.4-8.2)
[2023-02-28 14:49] LABS: Blood Morphology Comment NOT SEEN (NOT SEEN); Platelet Estimate ADEQ; Toxic Granulation 1+
--- NOTE | 2023-02-28 14:53 | RAD REPORT ---
EXAM DESCRIPTION: CT - Abdomen Pelvis Wo Contrast - 02/28/2023 2:37 pm CLINICAL HISTORY: Abdominal pain. ABD PAIN COMPARISON: Abdomen Pelvis Wo Contrast dated 05/18/2022 TECHNIQUE: CT imaging of the abdomen and pelvis was performed without contrast. Solid organ, bowel a nd vascular assessment is limited due to lack of IV and oral contrast. All CT scans are performed using dose optimization technique as appropriate and may include automated exposure control or mA/KV adjustment according to patient size. FINDINGS: The lower lung ordoñez are clear.Small hiatal hernia. The liver, spleen, pancreas, adrenal glands are within normal limits for a limited non-contrast exami [facility] [place]. Nonobstructive 1 mm stone mid pole right kidney. Bilateral renal cysts are suspected, benign in appearance. Cholelithiasis. No bowel obstruction, free air, free fluid or abscess. Sigmoid diverticulosis coli is present without diverticulitis. The appendix is normal. Prostate gland is enlarged and projects into the urinary bladder base. Small bilateral inguinal lymph nodes.Moderate lower lumbar degenerative changes. IMPRESSION: Punctate calculus right kidney without hydronephrosis. Cholelithiasis. Sigmoid diverticulosis coli without diverticulitis. A limited non-contrast examination was performed as detailed.
--- NOTE | 2023-02-28 15:36 | EDPHYS ---
Physician Documentation [facility] Name: Maik Mahmood Age: 82 yrs Sex: Male : 1940 Arrival Date: 02/28/2023 Time: 12:57 Bed 3 Private MD: ED Physician Rodrigue Bhagat HPI: 02/28 13:11 This 82 yrs old Male presents to ER via Ambulatory with complaints of Abnormal kb Lab Results. 13:16 Patient is a 82-year-old male with a history of hypertension and high cholesterol who kb presents for low hemoglobin. States he had routine labs done that were ordered by Dr. Sutherland. Dr. Sutherland called him and told him to come to the ER for low hemoglobin. Patient does report that he has had dark stools over the last few months and increasing shortness of breath on exertion. Denies hematemesis, bright red blood in the stool.. Historical: - PMHx: 13:09 Hypercholesterolemia; Hypertensive disorder; db - Immunization history:: Adult Immunizations unknown. - Social history:: Smoking status: Patient denies any tobacco usage or history of. ROS: 13:10 Constitutional: Negative for fever, chills, and weight loss, kb 13:10 Abdomen/GI: Positive for black/tarry stool, 13:10 All other systems are negative, 13:10 Respiratory: Positive for dyspnea on exertion, kb Exam: 13:10 Constitutional: This is a well developed, well nourished patient who is awake, alert, kb and in no acute distress. Head/Face: Normocephalic, atraumatic. ENT: Moist Mucous membranes Cardiovascular: Regular rate Respiratory: Respirations even and unlabored. No increased work of breathing. Talking in full sentences Abdomen/GI: Soft, non-tender. No distention Skin: Warm, dry with normal turgor. Normal color. MS/ Extremity: Pulses equal, no cyanosis. Neurovascular intact. Full, normal range of motion. Neuro: Awake and alert, GCS 15, oriented to person, place, time, and situation. Moves all extremities. Normal gait. 15:32 Abdomen/GI: Rectal exam: is unremarkable, rectal tone normal, Stool: normal, brown, kb Vital Signs: 13:07 BP 114 / 72; Pulse 91; Resp 18; Temp 98.7(O); Pulse Ox 100% ; EtCO2 200 mmHg; Height 5 db ft. 7 in. ; 13:28 BP 140 / 78; Pulse 82; Resp 17; Pulse Ox 100% on R/A; me1 14:00 BP 133 / 70; Pulse 79; Resp 19; Pulse Ox 100% on R/A; me1 15:00 BP 131 / 73; Pulse 85; Resp 19; Pulse Ox 100% on R/A; me1 MDM: 13:03 Patient medically screened. kb 13:10 Differential diagnosis: gi bleed, anemia, arrhythmia. Data reviewed: vital signs, kb nurses notes. 15:32 Consideration of Admission/Observation Escalation of care including kb admission/observation considered. admission considered, but hbg 7.5, vss, oxygen saturation 100% on room air, respirations even unlabored, lungs clear bilaterally. Patient has no complaints and prefers to go home.. Management of patient was discussed with the following: Dr. Bhagat, ERP. 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 ED course: White blood cell count elevated but patient is nontoxic in appearance, afebrile with normal vital signs. Patient has no complaints. Educated on need for follow-up with GI. Son and patient in agreement with outpatient follow-up. Patient does have small areas of skin that bleed intermittently due to psoriasis patient states this is normal for him. Bleeding controlled upon exam. Rectal exam normal, stool light brown with no gross blood.. 02/28 13:10 Order name: CBC with Diff; Complete Time: 14:50 kb 02/28 13:10 Order name: CMP; Complete Time: 13:59 kb 02/28 13:10 Order name: Protime (+inr); Complete Time: 13:51 kb 02/28 13:10 Order name: Ptt, Activated; Complete Time: 13:51 kb 02/28 13:10 Order name: Type And Screen; Complete Time: 15:00 kb 02/28 14:50 Order name: Manual Differential; Complete Time: 14:50 EDMS 02/28 13:11 Order name: Chest Single View XRAY; Complete Time: 13:51 kb 02/28 14:32 Order name: Abdomen ; Complete Time: 14:56 EDMS 02/28 13:10 Order name: IV Saline Lock; Complete Time: 13:32 kb 02/28 13:10 Order name: Labs collected and sent; Complete Time: 13:32 kb Administered Medications: No medications were administered Disposition: 16:52 Co-signature as Attending Physician, Rodrigue Bhagat MD I reviewed the patient's care rn provided by the Advanced Practice Provider and agree with the diagnosis and treatment plan. Disposition Summary: 02/28/23 15:35 Discharge Ordered Notes: Location: Home kb Condition: Stable kb Diagnosis - Anemia, unspecified kb - Chronic kidney disease, unspecified kb Followup: kb - With: Emergency Department - When: As needed - Reason: Worsening of condition Followup: kb - With: Private Physician - When: 2 - 3 days - Reason: Recheck today's complaints, Continuance of care, Re-evaluation by your physician Discharge Instructions: - Discharge Summary Sheet kb - Anemia kb - Chronic Kidney Disease, Adult, [id number] kb - Gastrointestinal Bleeding, [id number] kb Forms: - Medication Reconciliation Form kb - Thank You Letter kb - Antibiotic Education kb - Prescription Opioid Use kb - Patient Portal Instructions kb - Leadership Thank You Letter kb Signatures: Dispatcher [employer] [facility] Zoraida Christensen, RN MILITARY-C RN MILITARY-Ckb Rodrigue Bhagat MD MD rn Benton, Danielle, RN RN db Corrections: (The following items were deleted from the chart) 14:32 14:19 Abdomen Pelvis W Con+CT.RAD.BRZ ordered. [facility] 15:36 15:32 ED course: White blood cell count elevated but patient is nontoxic in appearance, kb afebrile with normal vital signs. Patient has no complaints. Educated on need for follow-up with GI. Son and patient in agreement with outpatient follow-up. Patient does have small areas of skin that bleed intermittently due to psoriasis patient states this is normal for him. Bleeding controlled upon exam. kb
--- NOTE | 2023-02-28 15:36 | ER ---
Nurse's Notes [facility] Name: Maik Mahmood Age: 82 yrs Sex: Male : 1940 Arrival Date: 02/28/2023 Time: 12:57 Bed 3 Private MD: Diagnosis: Anemia, unspecified;Chronic kidney disease, unspecified Presentation: 02/28 13:07 Chief complaint: Patient states: TOLD TO COME TO ED BY DR TAMEZ FOR LOW HEMOGLOBIN db YESTERDAY. COMPLAINS OF BLACK STOOLS FOR A COUPLE OF MONTHS. NO HX OF BLOOD TRANSFUSIONS PER PATIENT. SOB WITH AMBULATION. Coronavirus screen: Client denies travel out of the [place] in the last 14 days. At this time, the client does not indicate any symptoms associated with coronavirus-19. Ebola Screen: Patient negative for fever greater than or equal to 101.5 degrees Fahrenheit, and additional compatible Ebola Virus Disease symptoms Patient denies exposure to infectious person. Patient denies travel to an Ebola-affected area in the 21 days before illness onset. No symptoms or risks identified at this time. Initial Sepsis Screen: Does the patient meet any 2 criteria? No. Patient's initial sepsis screen is negative. Does the patient have a suspected source of infection? No. Patient's initial sepsis screen is negative. 13:07 Method Of Arrival: Ambulatory db 13:09 Risk Assessment: Do you want to hurt yourself or someone else? Patient reports no db desire to harm self or others. Onset of symptoms was February 28, 2023. 13:09 Acuity: PATRICIA 2 db Triage Assessment: 13:09 General: Appears in no apparent distress. comfortable, Behavior is calm, cooperative, db appropriate for age. Pain: Denies pain. Neuro: Level of Consciousness is awake, alert, obeys commands, Oriented to person, place, time, situation. Respiratory: Reports shortness of breath on exertion. GI: Reports bloody stool. Historical: - PMHx: 13:09 Hypercholesterolemia; Hypertensive disorder; db - Immunization history:: Adult Immunizations unknown. - Social history:: Smoking status: Patient denies any tobacco usage or history of. Screenin:28 [facility] ED Fall Risk Assessment (Adult) History of falling in the last 3 months, me1 including since admission No falls in past 3 months (0 pts) Confusion or Disorientation No (0 pts) Intoxicated or Sedated No (0 pts) Impaired Gait No (0 pts) Mobility Assist Device Used No (0 pt) Altered Elimination No (0 pt) Score/Fall Risk Level 0 - 2 = Low Risk Maintained a safe environment, Provided non-skid footwear, Hourly rounding (assess needs \T\ fall precautionary measures) done. Abuse screen: Denies threats or abuse. Nutritional screening: No deficits noted. Tuberculosis screening: No symptoms or risk factors identified. Assessment: 13:28 General: Appears comfortable, well groomed, well developed, well nourished, Behavior is me1 calm, cooperative, appropriate for age, Reports TOLD TO COME TO ED BY DR TAMEZ FOR LOW HEMOGLOBIN YESTERDAY. COMPLAINS OF BLACK STOOLS FOR A COUPLE OF MONTHS. NO HX OF BLOOD TRANSFUSIONS PER PATIENT. SOB WITH AMBULATION. General: Reports fatigue for >3 days. Pain: Denies pain. Neuro: Level of Consciousness is awake, alert, obeys commands, Oriented to person, place, time, situation, Appropriate for age. Cardiovascular: Capillary refill < 3 seconds Patient's skin is warm and dry. Respiratory: Airway is patent Trachea midline Respiratory effort is even, unlabored, Respiratory pattern is regular, symmetrical. GI: Reports black stools for a couple of months. Reports he is having black stools at this time. Vital Signs: 13:07 BP 114 / 72; Pulse 91; Resp 18; Temp 98.7(O); Pulse Ox 100% ; EtCO2 200 mmHg; Height 5 db ft. 7 in. ; 13:28 BP 140 / 78; Pulse 82; Resp 17; Pulse Ox 100% on R/A; me1 14:00 BP 133 / 70; Pulse 79; Resp 19; Pulse Ox 100% on R/A; me1 15:00 BP 131 / 73; Pulse 85; Resp 19; Pulse Ox 100% on R/A; me1 ED Course: 13:00 Patient arrived in ED. rg4 13:03 Zoraida Christensen FNP-C [facility]. kb 13:03 Rodrigue Bhagat MD is Attending Physician. kb 13:09 Triage completed. db 13:10 Arm band placed on. db 13:13 Emily Garza, JEO is Primary Nurse. me1 13:28 Chest Single View XRAY In Process Unspecified. EDMS 13:28 Patient has correct armband on for positive identification. Bed in low position. Call me1 light in reach. Side rails up X 1. Provided Education on: POC. Verbalized understanding. . 13:28 No provider procedures requiring assistance completed. me1 13:33 CBC with Diff Sent. ds4 13:33 CMP Sent. ds4 13:33 Ptt, Activated Sent. ds4 13:33 Protime (+inr) Sent. ds4 13:33 Type And Screen Sent. ds4 13:33 Inserted saline lock: 18 gauge in right antecubital area, using aseptic technique. ds4 Blood collected. 14:39 Abdomen In Process Unspecified. EDMS 15:51 IV discontinued, intact, bleeding controlled, No redness/swelling at site. Pressure me1 dressing applied. Administered Medications: No medications were administered Medication: 13:28 VIS not applicable for this client. me1 Outcome: 15:35 Discharge ordered by . kb 15:51 Discharged to home via wheelchair, with family, me1 15:51 Condition: stable 15:51 Discharge instructions given to patient, family, Instructed on discharge instructions, follow up and referral plans. Demonstrated understanding of instructions, follow-up care, 15:51 Patient left the ED. me1 Signatures: Dispatcher [employer] EDMS Zoraida Christensen, RABBLER-C RABBLER-Ckb David Gorman ds4 Dee Carroll rg4 Justa Westfall, RN RN db Emily Garza, JOE RN me1 Corrections: (The following items were deleted from the chart) 13:09 13:07 Chief complaint: Patient states: TOLD TO COME TO ED BY DR TAMEZ FOR LOW db HEMOGLOBIN YESTERDAY. COMPLAINS OF BLACK STOOLS FOR A COUPLE OF MONTHS. NO HX OF BLOOD TRANSFUSIONS PER PATIENT db 13:09 13:07 BP 114 / 72; Pulse 91bpm; Resp 18bpm; Pulse Ox 100%; Temp 98.7F Oral; db db 13:28 13:07 Chief complaint: Patient states: TOLD TO COME TO ED BY DR TAMEZ FOR LOW me1 HEMOGLOBIN YESTERDAY. COMPLAINS OF BLACK STOOLS FOR A COUPLE OF MONTHS. NO HX OF BLOOD TRANSFUSIONS PER PATIENT. SOB WITH AMBULATION db
[2023-02-28 18:51] VITALS: TEMP 98.7; O2SAT 100
[2023-02-28 18:55] VITALS: BP 131/73
== END 2023-02-28 15:51 | disposition home or self-care (01) ==
LOC: ER 12:57
DX: D64.9 Anemia, unspecified (principal); I12.9 Hypertensive chronic kidney disease with stage 1 through stage 4 chronic kidney disease, or unspecified chronic kidney disease; N18.9 Chronic kidney disease, unspecified
CPT/HCPCS: 36415; 71045; 74176; 80053; 85025; 85610; 85730; 86850; 86900; 86901; 99284

== ENCOUNTER 2025-01-04 13:51 | Emergency (ER) | payer OTHER ==
--- OUTSIDE RECORDS SUMMARY | 2025-01-04 13:56 | XMS REPORT | Continuity of Care Document ---
Author Name Unknown Address [address] [facility] [address] [place] [address] [facility] Address [address] [facility] [address] [place] [address] Care Team Providers Care Green Plumber Name Role Phone JUAN MUHAMMAD Attending Clinician Unavailable DOMITILA BHAT Attending Clinician UnavailIsaiah Pedroza MD Attending Clinician RORO ARIAS Attending Clinician Unava ilable ALLISON SUH Attending Clinician Unavailable ALEJANDRO VO Attending Clinician Unavailable KIT SPRAGUE Attending Clinician Unavailable ALLISON SUH Admitting Clinician Unavailable KIT SPRAGUE Admitting Clinician Unavailable Payers Payer Name Policy Type Policy Number Effective Date Expirati on Date Source [employer] MEDICARE ADV [id number] 2020 00:00:00 Problems Condition Name Condition Details Condition Category Status Onset Date Resolution Date Last Treatment Date Treating Clinician Comments Source CKD (chronic kidney disease) stage 4, GFR 15-29 ml/min CKD (chronic kidney disease) stage 4, GFR 15-29 ml/min Disease Recurre nce 08-14 00:00: 00 [facility] GI bleeding GI bleeding Disease Active 08-14 00:00: 00 [facility] Bradycardi a Bradycardi a Disease Active 08-14 00:00: 00 [facility] Anemia of chronic disease Anemia of chronic disease Disease Active 08-14 00:00: 00 [facility] Fever Fever Disease Active 2 00:00: 00 [facility] Allergies, Adverse Reactions, Alerts Allergy Name Allergy Type Status Severity Reaction(s) Onset Date Inactive Date Treating Clinician Comments Source Nsaids (Non-Danis roidal Anti-Inf lammator y Drug) Propensi ty to adverse reaction s Active 05-20 00:00: 00 Patient states he was told not to take any NSAIDS due to kidney disease [facility] NSAIDS (NON-DANIS ROIDAL ANTI-INF LAMMATOR Y DRUG) Allergy Active 05-20 00:00: 00 [facility] NO KNOWN ALLERGIE S Allergy Active [facility] Family History Family Member Diagnosis Comments Start Date Stop Date Sourc e Natural father Heart disease [facility] Natural father Stroke [facility] Natural mother COPD [facility] Natural mother Heart disease [facility] Social History Social Habit Start Date Stop Date Quantity Comments Source Sexual orientation [facility] History of tobacco use Current smoker [facility] Alcoholic beverage intake 2023-08-21 00:00:00 2023-08-21 00:00:00 Ex-drinker (finding) [facility] History of Social function 2023-08-21 00:00:00 2023-08-21 00:00:00 [facility] Alcohol Comment 2023-08-16 00:00:00 2023-08-16 00:00:00 stop consuming 50 years ago [facility] Tobacco use and exposure 2023-08-16 00:00:00 2023-08-16 00:00:00 Smokeless tobacco non-user [facility] Sex 2022-05-19 15:11:20 2022-05-19 15:11:20 Male (finding) [facility] Sex assigned at 1940 00:00:00 1940 00:00:00 [facility] Smoking Status Start Date Stop Date Source Ex-smoker 2023-08-16 00:00:00 2023-08-16 00:00:00 [facility] Medications Ordered Medication Name Filled Medication Name Start Date Stop Date Current Medication? Ordering Clinician Indication Dosage Frequency Signature (SIG) Comments Components Source apixaban (Eliquis) 2.5 mg Tab tablet 08-20 16:11: 22 Yes 2.5mg Q.5D Take 1 tablet (2.5 mg total) by mouth 2 (two) times daily. [facility] hydrALAZINE (APRESOLINE ) 50 MG tablet 08-20 16:11: 22 Yes 50mg Q.5D Take 1 tablet (50 mg total) by mouth 2 (two) times daily Look-ali ke/Sound-a like medication . [facility] furosemide (LASIX) 40 MG tablet 08-20 16:11: 22 Yes 40mg QD Take 1 tablet (40 mg total) by mouth daily. [facility] atorvastati n (LIPITOR) 10 MG tablet 08-20 16:11: 22 Yes 10mg QD Take 1 tablet (10 mg total) by mouth daily. [facility] dapaglifloz in propanediol (Farxiga) 5 mg tablet 08-20 16:11: 22 Yes 5mg QD Take 1 tablet (5 mg total) by mouth daily. [facility] allopurinoL (ZYLOPRIM) 300 MG tablet 08-20 16:11: 22 Yes 300mg QD Take 1 tablet (300 mg total) by mouth daily. [facility] cloNIDine HCL (CATAPRES) 0.2 MG tablet 08-20 16:11: 22 Yes .2mg Q.5D Take 1 tablet (0.2 mg total) by mouth 2 (two) times daily Look-ali ke/Sound-a like medication . [facility] tamsulosin (FLOMAX) 0.4 mg Cap 24 hr capsule 08-19 00:00: 00 Yes .4mg QD Take 1 capsule (0.4 mg total) by mouth daily. [facility] NIFEdipine (PROCARDIA- XL) 30 MG (OSM) 24 hr tablet 08-18 00:00: 00 Yes 30mg QD Take 1 tablet (30 mg total) by mouth daily. [facility] pantoprazol e (PROTONIX) 40 MG tablet 08-18 00:00: 00 Yes 40mg Q.5D Take 1 tablet (40 mg total) by mouth 2 (two) times daily. [facility] metoprolol tartrate (LOPRESSOR) 25 MG tablet 08-18 00:00: 00 Yes 12.5mg Q.5D Take 0.5 tablets (12.5 mg total) by mouth 2 (two) times daily. [facility] glipiZIDE (GLUCOTROL) 5 MG tablet 08-18 00:00: 00 Yes 5mg Take 1 tablet (5 mg total) by mouth 2 (two) times daily before meals. [facility] triamcinolo ne (KENALOG) 0.1 % topical ointment 05-30 00:00: 00 Yes Q.5D Apply topically 2 (two) times daily. [facility] apixaban (ELIQUIS) 2.5 mg Tab tablet 05-25 00:00: 00 Yes 2.5mg Q.5D Take 1 tablet (2.5 mg total) by mouth 2 (two) times daily. [facility] allopurinoL (ZYLOPRIM) 300 MG tablet 05-24 20:00: 55 Yes 300mg QD Take 300 mg by mouth daily. [facility] cloNIDine HCL (CATAPRES) 0.2 MG tablet 05-24 20:00: 55 Yes hypertensio n .2mg Q.5D Take 0.2 mg by mouth 2 (two) times daily. [facility] glimepiride (AMARYL) 4 MG tablet 05-24 20:00: 55 Yes type 2 diabetes mellitus 4mg Q.5D Take 4 mg by mouth 2 (two) times daily. [facility] hydroCHLORO thiazide (HYDRODIURI L) 25 MG tablet 05-24 20:00: 55 Yes hypertensio n 25mg QD Take 25 mg by mouth daily. [facility] hydrALAZINE (APRESOLINE ) 50 MG tablet 05-24 20:00: 55 Yes hypertensio n 50mg Q.5D Take 50 mg by mouth 2 (two) times daily. [facility] furosemide (LASIX) 40 MG tablet 05-24 20:00: 55 Yes hypertensio n 40mg QD Take 40 mg by mouth daily. [facility] LOSARTAN POTASSIUM, BULK, MISC 05-24 20:00: 55 Yes 100mg QD 100 mg by Miscellane ous route daily. [facility] atorvastati n (Lipitor) 10 MG tablet 05-24 20:00: 55 Yes 10mg QD Take 10 mg by mouth daily. [facility] amLODIPine (NORVASC) 5 MG tablet 05-24 20:00: 55 Yes 5mg QD Take 5 mg by mouth daily. [facility] multivitami n per tablet 05-24 20:00: 55 Yes vitamin deficiency prevention 1{tbl} QD Take 1 tablet by mouth daily. [facility] montelukast (SINGULAIR) 10 mg tablet 05-24 20:00: 55 Yes 10mg QD Take 10 mg by mouth nightly. [facility] Vital Signs Vital Name Observation Time Observation Value Comments S ource WEIGHT 2023-08-19 07:00:00 91 kg WEIGHT 2023-08-19 05:00:00 95.89 kg WEIGHT 2023-08-17 06:00:00 99.2 kg WEIGHT 2023-08-16 06:00:00 99 kg WEIGHT 2023-08-15 18:00:00 99 kg HEIGHT 2023-08-15 18:00:00 170.2 cm WEIGHT 2023-08-19 07:00:00 91 kg WEIGHT 2023-08-19 05:00:00 95.89 kg WEIGHT 2023-08-17 06:00:00 99.2 kg WEIGHT 2023-08-16 06:00:00 99 kg WEIGHT 2023-08-15 18:00:00 99 kg HEIGHT 2023-08-15 18:00:00 170.2 cm HEIGHT 2022-05-20 13:51:00 170.2 cm WEIGHT 2022-05-20 13:51:00 91.173 kg HEIGHT 2022-05-20 13:51:00 170.2 cm WEIGHT 2022-05-20 13:51:00 91.173 kg Encounters Start Date/Time End Date/Time Encounter Type Admission Type Attending Clinicians Care Facility Care Department Encounter ID Source 2023-08-17 09:01:41 Inpatient JUAN TREJO [facility] [id number] [facility] 2023-08-16 13:13:39 Inpatient JUAN TREJO [facility] [id number] [facility] 2023-08-16 07:28:52 Inpatient DOMITILA ESCOBAR [facility] [id number] [facility] 2024-07-21 00:00:00 2025-01-03 07:50:19 [address] Isaiah Nicolas [facility] [id number] [facility] 2024-04-21 00:00:00 2025-01-03 03:54:35 Historic Encounter Isaiah Nicolas [facility] [id number] [facility] 2023-08-15 17:49:00 2023-08-19 14:20:00 Inpatient ER RORO ARIAS [facility] Medical ICU [id number] [facility] 2022-05-20 13:26:00 2022-05-24 19:50:00 Inpatient ALEJANDRO MAIER [facility] [id number] [facility] Results Test Description Test Time Test Comments Results Result Co mments Source The specimen volume collected for this blood culture was below the optimum (10 mL per bottle or 20 mL total). Use of lower volumes may adversely affect recovery and/or detection times of some organisms.POCT-GLUCOSE [id number] 11:48:20* Test Item Value Reference Range Interpretation Comme nts POC-GLUCOSE METER (BEAKER) (test code = 1538) 296 mg/dL 70-110 H : TESTED AT [address] [address]: Die Engraver/Cathode Washer ID = [id number] for Sanchez Jessica POCT-GLUCOSE [id number] 07:42:01* Test Item Value Reference Range Interpretation Comme nts POC-GLUCOSE METER (BEAKER) (test code = 1538) 253 mg/dL 70-110 H : Notified RN/MD : TESTED AT [facility] [address] [facility] [address]: Die Engraver/Cathode Washer ID = [id number] for Meenu Mcgrath (MANUAL DIFFERENTIAL)2023-08-19 06:56:08* Test Item Value Reference Range Interpretation Comme nts NEUTROPHILS - REL (DIFF) (BE RITESH) (test code = 1359) 64 % LYMPHOCYTES - REL (DIFF) (BE RITESH) (test code = 1360) 13 % MONOCYTES - REL (DIFF) (BEAK ER) (test code = 1361) 5 % EOSINOPHILS - REL (DIFF) (BE RITESH) (test code = 1362) 17 % BASOPHILS - REL (DIFF) (BEAK ER) (test code = 1363) 1 % NEUTROPHILS - ABS (DIFF) (BE RITESH) (test code = 1365) 8.90 K/ L 1.80-8.00 H LYMPHOCYTES - ABS (DIFF) (BE RITESH) (test code = 1366) 1.81 K/ L 1.48-4.50 MONOCYTES - ABS (DIFF) (BEAK ER) (test code = 1367) 0.70 K/ L 0.00-1.30 EOSINOPHILS - ABS (DIFF) (BE RITESH) (test code = 1368) 2.36 K/ L 0.00-0.50 H BASOPHILS - ABS (DIFF) (BEAK ER) (test code = 1369) 0.14 K/ L 0.00-0.20 TOTAL COUNTED (BEAKER) (test code = 1351) 100 WBC MORPHOLOGY (BEAKER) (dagoberto t code = 487) Normal PLT MORPHOLOGY (BEAKER) (dagoberto t code = 486) Normal ANISOCYTOSIS (BEAKER) (test code = 961) Present CBC W/PLT COUNT & AUTO [id number] 06:56:03* Test Item Value Reference Range Interpretation Comme nts WHITE BLOOD CELL COUNT (BEAK ER) (test code = 775) 13.9 K/ L 4.0-10.0 H RED BLOOD CELL COUNT (BEAKER ) (test code = 761) 2.98 M/ L 4.20-5.80 L HEMOGLOBIN (BEAKER) (test co de = 410) 9.2 GM/DL 13.0-16.8 L HEMATOCRIT (BEAKER) (test co de = 411) 27.3 % 36.0-50.0 L MEAN CORPUSCULAR VOLUME (NOEMI KER) (test code = 753) 92 fL 82-99 MEAN CORPUSCULAR HEMOGLOBIN (BEAKER) (test code = 751) 30.9 pg 27.0-33.0 MEAN CORPUSCULAR HEMOGLOBIN CONC (BEAKER) (test code = 752) 33.7 GM/DL 32.0-36.0 RED CELL DISTRIBUTION WIDTH (BEAKER) (test code = 412) 14.6 % 12.0-15.0 PLATELET COUNT (BEAKER) (dagoberto t code = 756) 282 K/CU MM 150-430 MEAN PLATELET VOLUME (BEAKER ) (test code = 754) 10.6 fL 6.0-11.5 NUCLEATED RED BLOOD CELLS (BEAKER) (test code = 413) 0 /100 WBC 0-0 BASIC METABOLIC [id number] 06:32:56* Test Item Value Reference Range Interpretation Comme nts SODIUM (BEAKER) (test code = 381) 133 meq/L 135-148 L POTASSIUM (BEAKER) (test code = 379) 4.0 meq/L 3.6-5.5 CHLORIDE (BEAKER) (test code = 382) 101 meq/L 98-106 CO2 (BEAKER) (test code = 355) 19 meq/L 20-29 L BLOOD UREA NITROGEN (BEAKER) (test code = 354) 64 mg/dL 10-26 H CREATININE (BEAKER) (test code = 358) 3.96 mg/dL 0.50-1.20 H GLUCOSE RANDOM (BEAKER) (test code = 652) 236 mg/dL 70-110 H CALCIUM (BEAKER) (test code = 697) 9.0 mg/dL 8.5-10.5 EGFR (BEAKER) (test code = 1092) 14 mL/min/1.73 sq m Interpretation of eG FR values Stage Description Result G1 Normal or high >=90 G2 Mildly decreased 60-89 G3a Mildly to moderately 45-59 G3b Moderately to severely 30-44 G4 Severly decreased 15-29 G5 Kidney failure <15Reported eGFR is based on the CKD-EPI 2020 equation that does not use a race coefficientEstimated GFR is not as accurate as Creatinine Clearance in predicting glomerular filtration rate. Estimated GFR is not applicable for dialysis patients Die Engraver ID - LITOOperator ID - LITOOperator ID - LITOOperator ID - LITOOperator ID - LITOOperator ID - LITOOperator ID - LITOOperator ID - LITOOperator ID - LITOOperator ID - LITOOperator ID - LITOOperator ID - LITOOperator ID - RICHARD POCT-GLUCOSE [id number] 21:18:01* Test Item Value Reference Range Interpretation Comme nts POC-GLUCOSE METER (BEAKER) (test code = 1538) 294 mg/dL 70-110 H : TESTED AT [place] [address]: Die Engraver/Cathode Washer ID = [id number] for Koko Swenson POCT-GLUCOSE [id number] 16:52:16* Test Item Value Reference Range Interpretation Comme nts POC-GLUCOSE METER (BEAKER) (test code = 1538) 281 mg/dL 70-110 H : TESTED AT [place] [address]: Die Engraver/Cathode Washer ID = [id number] for Jacquie Chappell POCT-GLUCOSE [id number] 11:48:14* Test Item Value Reference Range Interpretation Comme nts POC-GLUCOSE METER (BEAKER) (test code = 1538) 295 mg/dL 70-110 H : Notified RN/MD : TESTED AT [place] [address]: Die Engraver/Cathode Washer ID = [id number] for Alia Ernandez MRSA SCREEN (BY PCR)2023-08-18 11:09:42* Test Item Value Reference Range Interpretation Comme nts MRSA BY PCR (BEAKER) (test code = 8712130104) Not Detected Not Detected MRSA DNA is N ot Detected in the specimen or does not have a cycle threshold (Ct) within the valid range. Target DNA for SCCmec is not detected and target DNA for mec (mecA/mecC) is Not Detected; orTarget DNA for SCCmec is not detected and target DNA for mec (mecA/mecC) is Detected; orTarget DNA for SCCmec is detected and target DNA for mec (mecA/mecC) is Not Detected. POCT-GLUCOSE [id number] 08:05:49* Test Item Value Reference Range Interpretation Comme nts POC-GLUCOSE METER (BEAKER) (test code = 1538) 233 mg/dL 70-110 H : Notified RN/MD : TESTED AT [address] [address]: Die Engraver/Cathode Washer ID = [id number] for Alia Ernandez TSH/FREE T4 IF [id number] 07:11:54* Test Item Value Reference Range Interpretation Comme nts THYROID STIMULATING HORMONE (BEAKER) (test code = 772) 2.940 uIU/mL 0.350-5.500 Die Engraver ID - [id number] W/PLT COUNT & AUTO [id number] 06:43:00* Test Item Value Reference Range Interpretation Comme nts WHITE BLOOD CELL COUNT (BEAK ER) (test code = 775) 14.2 K/ L 4.0-10.0 H RED BLOOD CELL COUNT (BEAKER ) (test code = 761) 3.06 M/ L 4.20-5.80 L HEMOGLOBIN (BEAKER) (test co de = 410) 9.5 GM/DL 13.0-16.8 L HEMATOCRIT (BEAKER) (test co de = 411) 28.1 % 36.0-50.0 L MEAN CORPUSCULAR VOLUME (NOEMI KER) (test code = 753) 92 fL 82-99 MEAN CORPUSCULAR HEMOGLOBIN (BEAKER) (test code = 751) 31.0 pg 27.0-33.0 MEAN CORPUSCULAR HEMOGLOBIN CONC (BEAKER) (test code = 752) 33.8 GM/DL 32.0-36.0 RED CELL DISTRIBUTION WIDTH (BEAKER) (test code = 412) 14.7 % 12.0-15.0 PLATELET COUNT (BEAKER) (dagoberto t code = 756) 272 K/CU MM 150-430 MEAN PLATELET VOLUME (BEAKER ) (test code = 754) 10.7 fL 6.0-11.5 NUCLEATED RED BLOOD CELLS (BEAKER) (test code = 413) 0 /100 WBC 0-0 (MANUAL DIFFERENTIAL)2023-08-18 06:43:00* Test Item Value Reference Range Interpretation Comme nts NEUTROPHILS - REL (DIFF) (BE RITESH) (test code = 1359) 65 % LYMPHOCYTES - REL (DIFF) (BE RITESH) (test code = 1360) 12 % MONOCYTES - REL (DIFF) (BEAK ER) (test code = 1361) 6 % EOSINOPHILS - REL (DIFF) (BE RITESH) (test code = 1362) 15 % BANDS - REL (DIFF) (BEAKER) (test code = 1348) 2 % 0-10 NEUTROPHILS - ABS (DIFF) (BE RITESH) (test code = 1365) 9.23 K/ L 1.80-8.00 H LYMPHOCYTES - ABS (DIFF) (BE RITESH) (test code = 1366) 1.70 K/ L 1.48-4.50 MONOCYTES - ABS (DIFF) (BEAK ER) (test code = 1367) 0.85 K/ L 0.00-1.30 EOSINOPHILS - ABS (DIFF) (BE RITESH) (test code = 1368) 2.13 K/ L 0.00-0.50 H BANDS-ABS (DIFF) (BEAKER) (t est code = 1349) 0.3 K/ L 0.0-0.8 TOTAL COUNTED (BEAKER) (test code = 1351) 100 BANDS + SEGMENTED NEUTROPHIL S (BEAKER) (test code = 1352) 9.51 WBC MORPHOLOGY (BEAKER) (dagoberto t code = 487) Normal PLT MORPHOLOGY (BEAKER) (dagoberto t code = 486) Normal ANISOCYTOSIS (BEAKER) (test code = 961) 1+ BASIC METABOLIC [id number] 06:10:21* Test Item Value Reference Range Interpretation Comme nts SODIUM (BEAKER) (test code = 381) 133 meq/L 135-148 L POTASSIUM (BEAKER) (test code = 379) 4.0 meq/L 3.6-5.5 CHLORIDE (BEAKER) (test code = 382) 100 meq/L 98-106 CO2 (BEAKER) (test code = 355) 20 meq/L 20-29 BLOOD UREA NITROGEN (BEAKER) (test code = 354) 61 mg/dL 10-26 H CREATININE (BEAKER) (test code = 358) 4.19 mg/dL 0.50-1.20 H GLUCOSE RANDOM (BEAKER) (test code = 652) 261 mg/dL 70-110 H CALCIUM (BEAKER) (test code = 697) 9.0 mg/dL 8.5-10.5 EGFR (BEAKER) (test code = 1092) 14 mL/min/1.73 sq m Interpretation of eG FR values Stage Description Result G1 Normal or high >=90 G2 Mildly decreased 60-89 G3a Mildly to moderately 45-59 G3b Moderately to severely 30-44 G4 Severly decreased 15-29 G5 Kidney failure <15Reported eGFR is based on the CKD-EPI 2020 equation that does not use a race coefficientEstimated GFR is not as accurate as Creatinine Clearance in predicting glomerular filtration rate. Estimated GFR is not applicable for dialysis patients Die Engraver ID - LEVIOTAOperator ID - LEVIOTAOperator ID - LEVIOTAOperator ID - LEVIOTAOperator ID - LEVIOTAOperator ID - LEVIOTAOperator ID - LEVIOTAOperator ID - LEVIOTAOperator ID - LEVIOTAOperator ID - [id number] 06:01:35* Test Item Value Reference Range Interpretation Comme nts MAGNESIUM (FAITH) (test cod e = 627) 1.7 mg/dL 1.5-3.0 Die Engraver ID - LEVIOTAOperator ID - LEVIOTAOperator ID - LEVIOTAOperator ID - [id number] 05:58:49* Test Item Value Reference Range Interpretation Comme nts PHOSPHORUS (FAITH) (test co de = 604) 4.2 mg/dL 2.5-4.5 Die Engraver ID - [id number]-GLUCOSE [id number] 20:06:58* Test Item Value Reference Range Interpretation Comme nts POC-GLUCOSE METER (BEAKER) (test code = 1538) 250 mg/dL 70-110 H : TESTED AT [place] [address]: Die Engraver/Cathode Washer ID = [id number] for Koko Swenson POCT-GLUCOSE [id number] 17:06:25* Test Item Value Reference Range Interpretation Comme nts POC-GLUCOSE METER (BEAKER) (test code = 1538) 211 mg/dL 70-110 H : TESTED AT [place] [address]: Die Engraver/Cathode Washer ID = [id number] for Nahun, Keneisha POCT-GLUCOSE [id number] 12:32:24* Test Item Value Reference Range Interpretation Comme nts POC-GLUCOSE METER (BEAKER) (test code = 1538) 270 mg/dL 70-110 H : TESTED AT [address] [address]: Die Engraver/Cathode Washer ID = [id number] for Jessica Sanchez [id number] 10:56:08* Test Item Value Reference Range Interpretation Comme nts PROCALCITONIN (BEAKER) (test code = 3036) 0.13 ng/mL <0.05 H SEPSIS RISK (ng/mL)Low: 0.05-0.50Intermediate: 0.51-2.00High: >=2.01LACTIC ACID, [id number] 10:07:42* Test Item Value Reference Range Interpretation Comme nts LACTATE BLOOD VENOUS (2) (BEAKER) (test code = 2872) 1.22 mmol/L See_Comment [Automated me ssage] The system which generated this result transmitted reference range: 0.50-<2.00. The reference range was not used to interpret this result as normal/abnormal. Die Engraver ID - [id number] ID - [id number] ID - [id number] ID - [id number] CHEST 1 VIEW PORTABLE / [id number] 09:49:45 [facility] 1940 Sex: MExam: XR CHEST 1 VIEW PORTABLE / BEDSIDEDate: 08/17/2023 9:48 AMIndication:feverComparison: NoneFINDINGS:Lines/Tubes/Devices: Electronic device projecting over theheart/mediastinum. Overlying EKG leads.Lungs/pleura:Lungs are well inflated. Left base curvilinear opacities,likely atelectasis. No significant pleural effusion. No pneumothorax.Heart/Mediastinum:The cardiomediastinal silhouette is normal in size andcontour.Bones/Soft Tissues: No acute osseous abnormality.Upper abdomen: Unremarkable.IMPRESSION:Left base curvilinear opacities, likely atelectasis. Electronically Signed By: Andrew Suresh08/17/2023 09:51 CDTWorkstation Name: [id number] 08:15:26* Test Item Value Reference Range Interpretation Comme nts POC-GLUCOSE METER (BEAKER) (test code = 1538) 184 mg/dL 70-110 H : TESTED AT [place] [address]: Die Engraver/Cathode Washer ID = [id number] for Jessica Sanchez BASIC METABOLIC [id number] 05:06:25* Test Item Value Reference Range Interpretation Comme nts SODIUM (BEAKER) (test code = 381) 134 meq/L 135-148 L POTASSIUM (BEAKER) (test code = 379) 3.7 meq/L 3.6-5.5 CHLORIDE (BEAKER) (test code = 382) 101 meq/L 98-106 CO2 (BEAKER) (test code = 355) 21 meq/L 20-29 BLOOD UREA NITROGEN (BEAKER) (test code = 354) 55 mg/dL 10-26 H CREATININE (BEAKER) (test code = 358) 3.67 mg/dL 0.50-1.20 H GLUCOSE RANDOM (BEAKER) (test code = 652) 152 mg/dL 70-110 H CALCIUM (BEAKER) (test code = 697) 9.8 mg/dL 8.5-10.5 EGFR (BEAKER) (test code = 1092) 16 mL/min/1.73 sq m Interpretation of eG FR values Stage Description Result G1 Normal or high >=90 G2 Mildly decreased 60-89 G3a Mildly to moderately 45-59 G3b Moderately to severely 30-44 G4 Severly decreased 15-29 G5 Kidney failure <15Reported eGFR is based on the CKD-EPI 2020 equation that does not use a race coefficientEstimated GFR is not as accurate as Creatinine Clearance in predicting glomerular filtration rate. Estimated GFR is not applicable for dialysis patients Die Engraver ID - [id number] ID - [id number] ID - [id number] ID - [id number] ID - [id number] ID - [id number] ID - [id number] ID - [id number] ID - [id number] ID - [id number] 05:03:22* Test Item Value Reference Range Interpretation Comme nts MAGNESIUM (BEAKER) (test cod e = 627) 1.8 mg/dL 1.5-3.0 Die Engraver ID - [id number] ID - [id number] ID - [id number] ID - [id number] 05:00:40* Test Item Value Reference Range Interpretation Comme nts PHOSPHORUS (BEAKER) (test co de = 604) 3.7 mg/dL 2.5-4.5 Die Engraver ID - [id number] W/PLT COUNT & AUTO [id number] 04:48:56* Test Item Value Reference Range Interpretation Comme nts WHITE BLOOD CELL COUNT (BEAK ER) (test code = 775) 15.8 K/ L 4.0-10.0 H RED BLOOD CELL COUNT (BEAKER ) (test code = 761) 3.21 M/ L 4.20-5.80 L HEMOGLOBIN (BEAKER) (test co de = 410) 9.9 GM/DL 13.0-16.8 L HEMATOCRIT (BEAKER) (test co de = 411) 29.6 % 36.0-50.0 L MEAN CORPUSCULAR VOLUME (NOEMI KER) (test code = 753) 92 fL 82-99 MEAN CORPUSCULAR HEMOGLOBIN (BEAKER) (test code = 751) 30.8 pg 27.0-33.0 MEAN CORPUSCULAR HEMOGLOBIN CONC (BEAKER) (test code = 752) 33.4 GM/DL 32.0-36.0 RED CELL DISTRIBUTION WIDTH (BEAKER) (test code = 412) 14.6 % 12.0-15.0 PLATELET COUNT (BEAKER) (dagoberto t code = 756) 248 K/CU MM 150-430 MEAN PLATELET VOLUME (BEAKER ) (test code = 754) 10.9 fL 6.0-11.5 NUCLEATED RED BLOOD CELLS (BEAKER) (test code = 413) 0 /100 WBC 0-0 NEUTROPHILS RELATIVE PERCENT (BEAKER) (test code = 429) 74 % LYMPHOCYTES RELATIVE PERCENT (BEAKER) (test code = 430) 10 % MONOCYTES RELATIVE PERCENT (BEAKER) (test code = 431) 7 % EOSINOPHILS RELATIVE PERCENT (BEAKER) (test code = 432) 8 % BASOPHILS RELATIVE PERCENT (BEAKER) (test code = 437) 1 % NEUTROPHILS ABSOLUTE COUNT (BEAKER) (test code = 670) 11.59 K/ L 1.80-8.00 H LYMPHOCYTES ABSOLUTE COUNT (BEAKER) (test code = 414) 1.50 K/ L 1.48-4.50 MONOCYTES ABSOLUTE COUNT (BE RITESH) (test code = 415) 1.13 K/ L 0.00-1.30 EOSINOPHILS ABSOLUTE COUNT (BEAKER) (test code = 416) 1.32 K/ L 0.00-0.50 H BASOPHILS ABSOLUTE COUNT (BE RITESH) (test code = 417) 0.10 K/ L 0.00-0.20 IMMATURE GRANULOCYTES-RELATI VE PERCENT (BEAKER) (test code = 2801) 0.80 % 0.00-0.00 H POCT-GLUCOSE [id number] 19:38:22* Test Item Value Reference Range Interpretation Comme nts POC-GLUCOSE METER (BEAKER) (test code = 1538) 215 mg/dL 70-110 H : TESTED AT [place] [address]: Die Engraver/Cathode Washer ID = [id number] for Koko Swenson POCT-GLUCOSE [id number] 17:27:35* Test Item Value Reference Range Interpretation Comme nts POC-GLUCOSE METER (BEAKER) (test code = 1538) 171 mg/dL 70-110 H : TESTED AT [place] [address]: Die Engraver/Cathode Washer ID = [id number] for Marifer Garnica URINALYSIS W/ REFLEX URINE [id number] 16:31:40* Test Item Value Reference Range Interpretation Comme nts COLOR (BEAKER) (test code = 470) Yellow CLARITY (BEAKER) (test code = 469) Clear SPECIFIC GRAVITY UA (BEAKER) (test code = 468) 1.015 1.001-1.035 PH UA (BEAKER) (test code = 467) 5.5 5.0-8.0 PROTEIN UA (BEAKER) (test co de = 464) Trace Negative A GLUCOSE UA (BEAKER) (test co de = 365) 250 mg/dL Negative A KETONES UA (BEAKER) (test co de = 371) Negative Negative BILIRUBIN UA (BEAKER) (test code = 462) Negative Negative BLOOD UA (BEAKER) (test code = 461) Negative Negative NITRITE UA (BEAKER) (test co de = 465) Negative Negative LEUKOCYTE ESTERASE UA (BEAKE R) (test code = 466) Negative Negative UROBILINOGEN UA (BEAKER) (te st code = 463) 0.2 BACTERIA (BEAKER) (test code = 517) Occasional MUCUS (BEAKER) (test code = 1574) Few RBC UA-MANUAL (BEAKER) (test code = 1659) 5-10 /HPF WBC UA-MANUAL (BEAKER) (test code = 1661) <5 /HPF SOURCE(BEAKER) (test code = 2795) RENAL [id number] 15:03:13 [facility] : 1940 Sex: MRenal ult rasoundClinical History: Acute on chronic kidney diseaseComparison: NoneFindings:Sonographic evaluation of the kidneys is performed. Please note theexamination is limited secondary to patient's body habitus.The right kidney is normal in size measuring 9.0 x 4.6 x 4.8 cm withcortical thickness of 1.2 cm. Cortical echogenicity is within normallimits. There is no evidence for solid renal mass, hydronephrosis, orshadowing calculi.The left kidney is normal in size measuring 8.9 x 5.0 x 4.67 m withcortical thickness of 1.4 cm. Cortical echogenicity is within normallimits. There is no evidence for solid renal mass, hydronephrosis, orshadowing calculi.The urinary bladder is collapsed around a Foleycatheter. IMPRESSION:Impression:Unremarkable sonographic appearance of the kidneys.Electronically Signed By: Lloyd Donohue MD08/16/2023 15:05 CDTWorkstation Name: [id number] 12:30:40* Test Item Value Reference Range Interpretation Comme nts POC-GLUCOSE METER (BEAKER) (test code = 1538) 174 mg/dL 70-110 H : TESTED AT [place] [address]: Die Engraver/Cathode Washer ID = [id number] for Marifer Garnica BASIC METABOLIC [id number] 04:27:32* Test Item Value Reference Range Interpretation Comme nts SODIUM (BEAKER) (test code = 381) 137 meq/L 135-148 POTASSIUM (BEAKER) (test code = 379) 3.8 meq/L 3.6-5.5 CHLORIDE (BEAKER) (test code = 382) 106 meq/L 98-106 CO2 (BEAKER) (test code = 355) 19 meq/L 20-29 L BLOOD UREA NITROGEN (BEAKER) (test code = 354) 64 mg/dL 10-26 H CREATININE (BEAKER) (test code = 358) 3.52 mg/dL 0.50-1.20 H GLUCOSE RANDOM (BEAKER) (test code = 652) 81 mg/dL 70-110 CALCIUM (BEAKER) (test code = 697) 8.9 mg/dL 8.5-10.5 EGFR (BEAKER) (test code = 1092) 17 mL/min/1.73 sq m Interpretation of eG FR values Stage Description Result G1 Normal or high >=90 G2 Mildly decreased 60-89 G3a Mildly to moderately 45-59 G3b Moderately to severely 30-44 G4 Severly decreased 15-29 G5 Kidney failure <15Reported eGFR is based on the CKD-EPI 2020 equation that does not use a race coefficientEstimated GFR is not as accurate as Creatinine Clearance in predicting glomerular filtration rate. Estimated GFR is not applicable for dialysis patients Die Engraver ID - LITOOperator ID - LITOOperator ID - LITOOperator ID - LITOOperator ID - LITOOperator ID - LITOOperator ID - LITOOperator ID - LITOOperator ID - LITOOperator ID - [id number] 03:40:24* Test Item Value Reference Range Interpretation Comme nts MAGNESIUM (BEAKER) (test cod e = 627) 2.0 mg/dL 1.5-3.0 Die Engraver ID - LITOOperator ID - LITOOperator ID - LITOOperator ID - RICHARD [id number] 03:37:27* Test Item Value Reference Range Interpretation Comme nts PHOSPHORUS (BEAKER) (test co de = 604) 4.0 mg/dL 2.5-4.5 Die Engraver ID - LITOCBC W/PLT COUNT & AUTO [id number] 03:22:29* Test Item Value Reference Range Interpretation Comme nts WHITE BLOOD CELL COUNT (BEAK ER) (test code = 775) 14.2 K/ L 4.0-10.0 H RED BLOOD CELL COUNT (BEAKER ) (test code = 761) 2.58 M/ L 4.20-5.80 L HEMOGLOBIN (BEAKER) (test co de = 410) 8.2 GM/DL 13.0-16.8 L HEMATOCRIT (BEAKER) (test co de = 411) 23.8 % 36.0-50.0 L MEAN CORPUSCULAR VOLUME (NOEMI KER) (test code = 753) 92 fL 82-99 MEAN CORPUSCULAR HEMOGLOBIN (BEAKER) (test code = 751) 31.8 pg 27.0-33.0 MEAN CORPUSCULAR HEMOGLOBIN CONC (BEAKER) (test code = 752) 34.5 GM/DL 32.0-36.0 RED CELL DISTRIBUTION WIDTH (BEAKER) (test code = 412) 14.5 % 12.0-15.0 PLATELET COUNT (BEAKER) (dagoberto t code = 756) 196 K/CU MM 150-430 MEAN PLATELET VOLUME (BEAKER ) (test code = 754) 11.3 fL 6.0-11.5 NUCLEATED RED BLOOD CELLS (BEAKER) (test code = 413) 0 /100 WBC 0-0 NEUTROPHILS RELATIVE PERCENT (BEAKER) (test code = 429) 74 % LYMPHOCYTES RELATIVE PERCENT (BEAKER) (test code = 430) 13 % MONOCYTES RELATIVE PERCENT (BEAKER) (test code = 431) 7 % EOSINOPHILS RELATIVE PERCENT (BEAKER) (test code = 432) 5 % BASOPHILS RELATIVE PERCENT (BEAKER) (test code = 437) 1 % NEUTROPHILS ABSOLUTE COUNT (BEAKER) (test code = 670) 10.53 K/ L 1.80-8.00 H LYMPHOCYTES ABSOLUTE COUNT (BEAKER) (test code = 414) 1.80 K/ L 1.48-4.50 MONOCYTES ABSOLUTE COUNT (BE RITESH) (test code = 415) 0.96 K/ L 0.00-1.30 EOSINOPHILS ABSOLUTE COUNT (BEAKER) (test code = 416) 0.77 K/ L 0.00-0.50 H BASOPHILS ABSOLUTE COUNT (BE RITESH) (test code = 417) 0.07 K/ L 0.00-0.20 IMMATURE GRANULOCYTES-RELATI VE PERCENT (BEAKER) (test code = 2801) 0.40 % 0.00-0.00 H HEMOGLOBIN AND [id number] 00:29:49* Test Item Value Reference Range Interpretation Comme nts HEMOGLOBIN (BEAKER) (test co de = 410) 8.1 GM/DL 13.0-16.8 L HEMATOCRIT (BEAKER) (test co de = 411) 24.0 % 36.0-50.0 L POCT-GLUCOSE [id number] 00:16:57* Test Item Value Reference Range Interpretation Comme nts POC-GLUCOSE METER (BEAKER) (test code = 1538) 93 mg/dL 70-110 : TESTED AT [address] [address]: Die Engraver/Cathode Washer ID = [id number] for Eileen Hernandez IRON, TIBC, % SAT. (WITHOUT FERRITIN)2023-08-15 19:54:26* Test Item Value Reference Range Interpretation Comme nts IRON (BEAKER) (test code = 547) 38.0 ug/dL 45.0-170.0 L TOTAL IRON BINDING CAPACITY (BEAKER) (test code = 769) 288 ug/dL 250-550 IRON % SATURATION (2) (BEAKE R) (test code = 2590) 13 % 20-55 L Die Engraver ID - DSENSONOperator ID - DSENSONB-TYPE NATRIURETIC FACTOR (BNP) 2023-08-15 18:54:38* Test Item Value Reference Range Interpretation Comme nts B-TYPE NATRIURETIC PEPTIDE ( BEAKER) (test code = 700) 423 pg/mL 0-100 H Die Engraver ID - DSENSONTROPONIN [id number] 18:52:46* Test Item Value Reference Range Interpretation Comme nts TROPONIN I (BEAKER) (test co de = 397) 0.03 ng/mL 0.00-0.15 Troponin I (TnI) levels must be interpreted in the context of the presenting symptoms and the clinical findings. Elevated TnI levels indicate myocardial damage, but are not specific for ischemic heart disease. Elevated TnI levels are seen in patients with other cardiac conditions (including myocarditis and congestive heart failure), and slight TnI elevations occur in patients with other conditions, including sepsis, renal failure, acidosis, acute neurological disease, and persistent tachyarrhythmia.Die Engraver ID - DSENSONCOMPREHENSIVE METABOLIC [id number] 18:50:35* Test Item Value Reference Range Interpretation Comme nts TOTAL PROTEIN (BEAKER) (test code = 770) 7.7 gm/dL 6.0-8.5 ALBUMIN (BEAKER) (test code = 1145) 3.9 g/dL 3.5-5.0 ALKALINE PHOSPHATASE (BEAKER) (test code = 346) 72 U/L 30-115 BILIRUBIN TOTAL (BEAKER) (test code = 377) 0.4 mg/dL 0.1-1.2 SODIUM (BEAKER) (test code = 381) 134 meq/L 135-148 L POTASSIUM (BEAKER) (test code = 379) 4.6 meq/L 3.6-5.5 CHLORIDE (BEAKER) (test code = 382) 103 meq/L 98-106 CO2 (BEAKER) (test code = 355) 20 meq/L 20-29 BLOOD UREA NITROGEN (BEAKER) (test code = 354) 71 mg/dL 10-26 H CREATININE (BEAKER) (test code = 358) 3.83 mg/dL 0.50-1.20 H GLUCOSE RANDOM (BEAKER) (test code = 652) 149 mg/dL 70-110 H CALCIUM (BEAKER) (test code = 697) 9.7 mg/dL 8.5-10.5 AST (SGOT) (BEAKER) (test code = 353) 14 U/L 5-40 ALT (SGPT) (BEAKER) (test code = 347) 12 U/L 5-50 EGFR (BEAKER) (test code = 1092) 15 mL/min/1.73 sq m Interpretation of eG FR values Stage Description Result G1 Normal or high >=90 G2 Mildly decreased 60-89 G3a Mildly to moderately 45-59 G3b Moderately to severely 30-44 G4 Severly decreased 15-29 G5 Kidney failure <15Reported eGFR is based on the CKD-EPI 2020 equation that does not use a race coefficientEstimated GFR is not as accurate as Creatinine Clearance in predicting glomerular filtration rate. Estimated GFR is not applicable for dialysis patients Die Engraver ID - DSENSONOperator ID - DSENSONOperator ID - DSENSONOperator ID - DSENSONOperator ID - DSENSONOperator ID - DSENSONOperator ID - DSENSONOperator ID - DSENSONOperator ID - DSENSONOperator ID - DSENSONOperator ID - DSENSONOperator ID - DSENSONOperator ID - DSENSONOperator ID - DSENSONOperator ID - DSENSONOperator ID - DSENSONHEMOGLOBIN [id number] 18:49:44* Test Item Value Reference Range Interpretation Comme nts HEMOGLOBIN A1C (BEAKER) (dagoberto t code = 368) 7.8 % 4.3-6.1 H Die Engraver ID - [id number] 18:46:47* Test Item Value Reference Range Interpretation Comme nts MAGNESIUM (BEAKER) (test cod e = 627) 2.3 mg/dL 1.5-3.0 Die Engraver ID - DSENSONOperator ID - DSENSONOperator ID - DSENSONOperator ID - [id number] 18:43:45* Test Item Value Reference Range Interpretation Comme nts PHOSPHORUS (BEAKER) (test co de = 604) 4.8 mg/dL 2.5-4.5 H Die Engraver ID - DSENSONPROTHROMBIN TIME/[id number] 18:43:05* Test Item Value Reference Range Interpretation Comme nts PROTIME (BEAKER) (test code = 759) 11.1 seconds 9.3-12.0 Final Informat ion (Auto Output) INR (BEAKER) (test code = 370) 1.04 <=5.90 Final Informatio n (Auto Output) RECOMMENDED COUMADIN/WARFARIN INR THERAPY RANGESSTANDARD DOSE: 2.0 - 3.0 Includes: PROPHYLAXIS for venous thrombosis, systemic embolization; TREATMENT for venous thrombosis and/or pulmonary embolus.HIGH RISK: Target INR is 2.5-3.5 for patients with mechanical heart valves.CBC W/PLT COUNT & AUTO DIFFERENTIAL 2023-08-15 18:29:59* Test Item Value Reference Range Interpretation Comme nts WHITE BLOOD CELL COUNT (BEAK ER) (test code = 775) 13.4 K/ L 4.0-10.0 H RED BLOOD CELL COUNT (BEAKER ) (test code = 761) 2.95 M/ L 4.20-5.80 L HEMOGLOBIN (BEAKER) (test co de = 410) 9.2 GM/DL 13.0-16.8 L HEMATOCRIT (BEAKER) (test co de = 411) 27.5 % 36.0-50.0 L MEAN CORPUSCULAR VOLUME (NOEMI KER) (test code = 753) 93 fL 82-99 MEAN CORPUSCULAR HEMOGLOBIN (BEAKER) (test code = 751) 31.2 pg 27.0-33.0 MEAN CORPUSCULAR HEMOGLOBIN CONC (BEAKER) (test code = 752) 33.5 GM/DL 32.0-36.0 RED CELL DISTRIBUTION WIDTH (BEAKER) (test code = 412) 14.6 % 12.0-15.0 PLATELET COUNT (BEAKER) (dagoberto t code = 756) 220 K/CU MM 150-430 MEAN PLATELET VOLUME (BEAKER ) (test code = 754) 11.0 fL 6.0-11.5 NUCLEATED RED BLOOD CELLS (BEAKER) (test code = 413) 0 /100 WBC 0-0 NEUTROPHILS RELATIVE PERCENT (BEAKER) (test code = 429) 74 % LYMPHOCYTES RELATIVE PERCENT (BEAKER) (test code = 430) 12 % MONOCYTES RELATIVE PERCENT (BEAKER) (test code = 431) 7 % EOSINOPHILS RELATIVE PERCENT (BEAKER) (test code = 432) 6 % BASOPHILS RELATIVE PERCENT (BEAKER) (test code = 437) 1 % NEUTROPHILS ABSOLUTE COUNT (BEAKER) (test code = 670) 9.82 K/ L 1.80-8.00 H LYMPHOCYTES ABSOLUTE COUNT (BEAKER) (test code = 414) 1.64 K/ L 1.48-4.50 MONOCYTES ABSOLUTE COUNT (BE RITESH) (test code = 415) 0.93 K/ L 0.00-1.30 EOSINOPHILS ABSOLUTE COUNT (BEAKER) (test code = 416) 0.74 K/ L 0.00-0.50 H BASOPHILS ABSOLUTE COUNT (BE RITESH) (test code = 417) 0.09 K/ L 0.00-0.20 IMMATURE GRANULOCYTES-RELATI VE PERCENT (BEAKER) (test code = 2801) 1.00 % 0.00-0.00 H POCT-GLUCOSE [id number] 18:16:31* Test Item Value Reference Range Interpretation Comme nts POC-GLUCOSE METER (BEAKER) (test code = 1538) 144 mg/dL 70-110 H : TESTED AT [facility] [address] [place] [address]: Die Engraver/Cathode Washer ID = [id number] for Roberto CarlosdebbiAdolfo dillon BLOOD [id number] 18:00:56* Test Item Value Reference Range Interpretation Comme nts CULTURE (BEAKER) (test code = 1095) No growth in 5 days POCT-GLUCOSE [id number] 16:59:59* Test Item Value Reference Range Interpretation Comme nts POC-GLUCOSE METER (BEAKER) (test code = 1538) 193 mg/dL 70-110 H : TESTED AT [facility] [address] [facility], [address]: Die Engraver/Cathode Washer ID = [id number] for NOLBERTO SANCHES CBC (HEMOGRAM ONLY)2022-05-24 12:33:30* Test Item Value Reference Range Interpretation Comme nts WHITE BLOOD CELL COUNT (BEAK ER) (test code = 775) 14.9 K/ L 3.5-10.5 H RED BLOOD CELL COUNT (BEAKER ) (test code = 761) 2.77 M/ L 4.63-6.08 L HEMOGLOBIN (BEAKER) (test co de = 410) 8.7 GM/DL 13.7-17.5 L HEMATOCRIT (BEAKER) (test co de = 411) 26.7 % 40.1-51.0 L MEAN CORPUSCULAR VOLUME (NOEMI KER) (test code = 753) 96 fL 79-92 H MEAN CORPUSCULAR HEMOGLOBIN (BEAKER) (test code = 751) 31.4 pg 25.7-32.2 MEAN CORPUSCULAR HEMOGLOBIN CONC (BEAKER) (test code = 752) 32.6 GM/DL 32.3-36.5 RED CELL DISTRIBUTION WIDTH (BEAKER) (test code = 412) 15.9 % 11.6-14.4 H PLATELET COUNT (BEAKER) (dagoberto t code = 756) 399 K/CU MM 150-450 MEAN PLATELET VOLUME (BEAKER ) (test code = 754) 9.9 fL 9.4-12.4 NUCLEATED RED BLOOD CELLS (BEAKER) (test code = 413) 0 /100 WBC 0-0 POCT-GLUCOSE [id number] 11:47:48* Test Item Value Reference Range Interpretation Comme nts POC-GLUCOSE METER (BEAKER) (test code = 1538) 275 mg/dL 70-110 H : TESTED AT [facility] [address] [facility], [address]: Die Engraver/Cathode Washer ID = [id number] for NOLBERTO SANCHES POCT-GLUCOSE [id number] 08:03:58* Test Item Value Reference Range Interpretation Comme nts POC-GLUCOSE METER (BEAKER) (test code = 1538) 187 mg/dL 70-110 H : TESTED AT [facility] [address] [facility], [address]: Die Engraver/Cathode Washer ID = [id number] for NOLBERTO SANCHES COMPREHENSIVE METABOLIC [id number] 06:27:41* Test Item Value Reference Range Interpretation Comme nts TOTAL PROTEIN (BEAKER) (test code = 770) 6.3 gm/dL 6.0-8.3 ALBUMIN (BEAKER) (test code = 1145) 3.1 g/dL 3.5-5.0 L ALKALINE PHOSPHATASE (BEAKER) (test code = 346) 102 U/L 40-150 BILIRUBIN TOTAL (BEAKER) (test code = 377) 0.7 mg/dL 0.2-1.2 SODIUM (BEAKER) (test code = 381) 132 meq/L 136-145 L POTASSIUM (BEAKER) (test code = 379) 4.4 meq/L 3.5-5.1 CHLORIDE (BEAKER) (test code = 382) 106 meq/L 98-107 CO2 (BEAKER) (test code = 355) 19 meq/L 22-29 L BLOOD UREA NITROGEN (BEAKER) (test code = 354) 20 mg/dL 7-21 CREATININE (BEAKER) (test code = 358) 2.08 mg/dL 0.57-1.25 H GLUCOSE RANDOM (BEAKER) (test code = 652) 195 mg/dL 70-105 H CALCIUM (BEAKER) (test code = 697) 8.3 mg/dL 8.4-10.2 L AST (SGOT) (BEAKER) (test code = 353) 24 U/L 5-34 ALT (SGPT) (BEAKER) (test code = 347) 28 U/L 6-55 EGFR (BEAKER) (test code = 1092) 32 mL/min/1.73 sq m Interpretation of eG FR values Stage Description Result G1 Normal or high >=90 G2 Mildly decreased 60-89 G3a Mildly to moderately 45-59 G3b Moderately to severely 30-44 G4 Severly decreased 15-29 G5 Kidney failure <15Reported eGFR is based on the CKD-EPI 2020 equation that does not use a race coefficientEstimated GFR is not as accurate as Creatinine Clearance in predicting glomerular filtration rate. Estimated GFR is not applicable for dialysis patients Die Engraver ID - SHELLY GOperator ID - [id number] 05:47:19* Test Item Value Reference Range Interpretation Comme nts PHOSPHORUS (BEAKER) (test co de = 604) 2.3 mg/dL 2.3-4.7 Die Engraver ID - SHELLY [id number] 05:47:18* Test Item Value Reference Range Interpretation Comme nts MAGNESIUM (BEAKER) (test cod e = 627) 1.9 mg/dL 1.6-2.6 Die Engraver ID - SHELLY GCBC W/PLT COUNT & AUTO [id number] 04:57:14* Test Item Value Reference Range Interpretation Comme nts WHITE BLOOD CELL COUNT (BEAK ER) (test code = 775) 16.5 K/ L 3.5-10.5 H RED BLOOD CELL COUNT (BEAKER ) (test code = 761) 2.71 M/ L 4.63-6.08 L HEMOGLOBIN (BEAKER) (test co de = 410) 8.6 GM/DL 13.7-17.5 L HEMATOCRIT (BEAKER) (test co de = 411) 26.1 % 40.1-51.0 L MEAN CORPUSCULAR VOLUME (NOEMI KER) (test code = 753) 96 fL 79-92 H MEAN CORPUSCULAR HEMOGLOBIN (BEAKER) (test code = 751) 31.7 pg 25.7-32.2 MEAN CORPUSCULAR HEMOGLOBIN CONC (BEAKER) (test code = 752) 33.0 GM/DL 32.3-36.5 RED CELL DISTRIBUTION WIDTH (BEAKER) (test code = 412) 16.0 % 11.6-14.4 H PLATELET COUNT (BEAKER) (dagoberto t code = 756) 422 K/CU MM 150-450 MEAN PLATELET VOLUME (BEAKER ) (test code = 754) 10.0 fL 9.4-12.4 NUCLEATED RED BLOOD CELLS (BEAKER) (test code = 413) 0 /100 WBC 0-0 NEUTROPHILS RELATIVE PERCENT (BEAKER) (test code = 429) 83 % LYMPHOCYTES RELATIVE PERCENT (BEAKER) (test code = 430) 7 % MONOCYTES RELATIVE PERCENT (BEAKER) (test code = 431) 5 % EOSINOPHILS RELATIVE PERCENT (BEAKER) (test code = 432) 2 % BASOPHILS RELATIVE PERCENT (BEAKER) (test code = 437) 1 % NEUTROPHILS ABSOLUTE COUNT (BEAKER) (test code = 670) 13.71 K/ L 1.78-5.38 H LYMPHOCYTES ABSOLUTE COUNT (BEAKER) (test code = 414) 1.15 K/ L 1.32-3.57 L MONOCYTES ABSOLUTE COUNT (BE RITESH) (test code = 415) 0.85 K/ L 0.30-0.82 H EOSINOPHILS ABSOLUTE COUNT (BEAKER) (test code = 416) 0.26 K/ L 0.04-0.54 BASOPHILS ABSOLUTE COUNT (BE RITESH) (test code = 417) 0.22 K/ L 0.01-0.08 H IMMATURE GRANULOCYTES-RELATI VE PERCENT (BEAKER) (test code = 2801) 1.80 % 0.00-1.00 H POCT-GLUCOSE [id number] 21:33:06* Test Item Value Reference Range Interpretation Comme nts POC-GLUCOSE METER (BEAKER) (test code = 1538) 197 mg/dL 70-110 H : TESTED AT [place] [id number] [facility], [address]: Die Engraver/Cathode Washer ID = [id number] for PERLA CONNER POCT-GLUCOSE [id number] 17:06:17* Test Item Value Reference Range Interpretation Comme nts POC-GLUCOSE METER (BEAKER) (test code = 1538) 180 mg/dL 70-110 H : TESTED AT [address], [address]: Die Engraver/Cathode Washer ID = [id number] for VINOD AGUSTIN POCT-GLUCOSE [id number] 10:39:14* Test Item Value Reference Range Interpretation Comme nts POC-GLUCOSE METER (BEAKER) (test code = 1538) 213 mg/dL 70-110 H : TESTED AT [address], [address]: Die Engraver/Cathode Washer ID = [id number] for QUEEN BROCK [id number] 08:36:48* Test Item Value Reference Range Interpretation Comme nts PARTIAL THROMBOPLASTIN TIME (BEAKER) (test code = 760) 48.3 seconds 22.5-36.0 H POCT-GLUCOSE [id number] 07:52:24* Test Item Value Reference Range Interpretation Comme nts POC-GLUCOSE METER (BEAKER) (test code = 1538) 173 mg/dL 70-110 H : TESTED AT [address], [address]: Die Engraver/Cathode Washer ID = [id number] for QUEEN BROCK COMPREHENSIVE METABOLIC [id number] 05:47:27* Test Item Value Reference Range Interpretation Comme nts TOTAL PROTEIN (BEAKER) (test code = 770) 5.9 gm/dL 6.0-8.3 L ALBUMIN (BEAKER) (test code = 1145) 3.0 g/dL 3.5-5.0 L ALKALINE PHOSPHATASE (BEAKER) (test code = 346) 98 U/L 40-150 BILIRUBIN TOTAL (BEAKER) (test code = 377) 0.5 mg/dL 0.2-1.2 SODIUM (BEAKER) (test code = 381) 130 meq/L 136-145 L POTASSIUM (BEAKER) (test code = 379) 4.5 meq/L 3.5-5.1 CHLORIDE (BEAKER) (test code = 382) 105 meq/L 98-107 CO2 (BEAKER) (test code = 355) 21 meq/L 22-29 L BLOOD UREA NITROGEN (BEAKER) (test code = 354) 28 mg/dL 7-21 H CREATININE (BEAKER) (test code = 358) 2.21 mg/dL 0.57-1.25 H GLUCOSE RANDOM (BEAKER) (test code = 652) 188 mg/dL 70-105 H CALCIUM (BEAKER) (test code = 697) 7.7 mg/dL 8.4-10.2 L AST (SGOT) (BEAKER) (test code = 353) 25 U/L 5-34 ALT (SGPT) (BEAKER) (test code = 347) 30 U/L 6-55 EGFR (BEAKER) (test code = 1092) 29 mL/min/1.73 sq m Interpretation of eG FR values Stage Description Result G1 Normal or high >=90 G2 Mildly decreased 60-89 G3a Mildly to moderately 45-59 G3b Moderately to severely 30-44 G4 Severly decreased 15-29 G5 Kidney failure <15Reported eGFR is based on the CKD-EPI 2020 equation that does not use a race coefficientEstimated GFR is not as accurate as Creatinine Clearance in predicting glomerular filtration rate. Estimated GFR is not applicable for dialysis patients Die Engraver ID - [id number] 05:43:49* Test Item Value Reference Range Interpretation Comme nts MAGNESIUM (BEAKER) (test cod e = 627) 1.9 mg/dL 1.6-2.6 Die Engraver ID - [id number] 05:43:49* Test Item Value Reference Range Interpretation Comme nts PHOSPHORUS (BEAKER) (test co de = 604) 1.9 mg/dL 2.3-4.7 L Die Engraver ID - [id number] W/PLT COUNT & AUTO [id number] 04:32:24* Test Item Value Reference Range Interpretation Comme nts WHITE BLOOD CELL COUNT (BEAK ER) (test code = 775) 16.3 K/ L 3.5-10.5 H RED BLOOD CELL COUNT (BEAKER ) (test code = 761) 2.44 M/ L 4.63-6.08 L HEMOGLOBIN (BEAKER) (test co de = 410) 7.7 GM/DL 13.7-17.5 L HEMATOCRIT (BEAKER) (test co de = 411) 23.6 % 40.1-51.0 L MEAN CORPUSCULAR VOLUME (NOEMI KER) (test code = 753) 97 fL 79-92 H MEAN CORPUSCULAR HEMOGLOBIN (BEAKER) (test code = 751) 31.6 pg 25.7-32.2 MEAN CORPUSCULAR HEMOGLOBIN CONC (BEAKER) (test code = 752) 32.6 GM/DL 32.3-36.5 RED CELL DISTRIBUTION WIDTH (BEAKER) (test code = 412) 15.5 % 11.6-14.4 H PLATELET COUNT (BEAKER) (dagoberto t code = 756) 403 K/CU MM 150-450 MEAN PLATELET VOLUME (BEAKER ) (test code = 754) 10.1 fL 9.4-12.4 NUCLEATED RED BLOOD CELLS (BEAKER) (test code = 413) 0 /100 WBC 0-0 NEUTROPHILS RELATIVE PERCENT (BEAKER) (test code = 429) 73 % LYMPHOCYTES RELATIVE PERCENT (BEAKER) (test code = 430) 12 % MONOCYTES RELATIVE PERCENT (BEAKER) (test code = 431) 7 % EOSINOPHILS RELATIVE PERCENT (BEAKER) (test code = 432) 5 % BASOPHILS RELATIVE PERCENT (BEAKER) (test code = 437) 1 % NEUTROPHILS ABSOLUTE COUNT (BEAKER) (test code = 670) 11.91 K/ L 1.78-5.38 H LYMPHOCYTES ABSOLUTE COUNT (BEAKER) (test code = 414) 1.93 K/ L 1.32-3.57 MONOCYTES ABSOLUTE COUNT (BE RITESH) (test code = 415) 1.21 K/ L 0.30-0.82 H EOSINOPHILS ABSOLUTE COUNT (BEAKER) (test code = 416) 0.77 K/ L 0.04-0.54 H BASOPHILS ABSOLUTE COUNT (BE RITESH) (test code = 417) 0.19 K/ L 0.01-0.08 H IMMATURE GRANULOCYTES-RELATI VE PERCENT (BEAKER) (test code = 2801) 1.70 % 0.00-1.00 H [id number] 00:23:05* Test Item Value Reference Range Interpretation Comme nts PARTIAL THROMBOPLASTIN TIME (BEAKER) (test code = 760) 60.2 seconds 22.5-36.0 H [id number] 22:05:43* Test Item Value Reference Range Interpretation Comme nts PARTIAL THROMBOPLASTIN TIME (BEAKER) (test code = 760) 115.6 seconds 22.5-36.0 H POCT-GLUCOSE [id number] 20:51:39* Test Item Value Reference Range Interpretation Comme nts POC-GLUCOSE METER (BEAKER) (test code = 1538) 154 mg/dL 70-110 H : TESTED AT [facility] [address] [place] [address], [address]: Die Engraver/Cathode Washer ID = [id number] for HILARY JASMINE POCT-GLUCOSE [id number] 17:23:40* Test Item Value Reference Range Interpretation Comme nts POC-GLUCOSE METER (BEAKER) (test code = 1538) 256 mg/dL 70-110 H : TESTED AT [address], [address]: Die Engraver/Cathode Washer ID = [id number] for TRACEY HUNTER [id number] 15:00:22* Test Item Value Reference Range Interpretation Comme nts PARTIAL THROMBOPLASTIN TIME (BEAKER) (test code = 760) 82.0 seconds 22.5-36.0 H PERIPHERAL BLOOD SMEAR - PATHOLOGIST [id number] 13:58:33* Test Item Value Reference Range Interpretation Comme nts PERIPHERAL SMR REVIEW (BEAKER) (test code = 2640) Cell counts confirmed. White blood cells are predominantly composed of mature granulocytes. No significant blast population seen. [id number] (BEAKER) (test code = 2849) Liberty Joiner M.D. [id number] 12:17:25* Test Item Value Reference Range Interpretation Comme nts PARTIAL THROMBOPLASTIN TIME (BEAKER) (test code = 760) 122.6 seconds 22.5-36.0 H POCT-GLUCOSE [id number] 11:56:31* Test Item Value Reference Range Interpretation Comme nts POC-GLUCOSE METER (BEAKER) (test code = 1538) 208 mg/dL 70-110 H : TESTED AT [facility] [address] [facility], [address]: Die Engraver/Cathode Washer ID = [id number] for TRACEY HUNTER POCT-GLUCOSE [id number] 08:51:48* Test Item Value Reference Range Interpretation Comme nts POC-GLUCOSE METER (BEAKER) (test code = 1538) 189 mg/dL 70-110 H : TESTED AT [facility] [address] [facility], [address]: Die Engraver/Cathode Washer ID = [id number] for JANICE HUNTERMY POCT-GLUCOSE [id number] 07:17:14* Test Item Value Reference Range Interpretation Comme nts POC-GLUCOSE METER (BEAKER) (test code = 1538) 203 mg/dL 70-110 H : TESTED AT [facility] [address] [facility], [address]: Die Engraver/Cathode Washer ID = [id number] for Jessica Burgos COMPREHENSIVE METABOLIC [id number] 04:46:58* Test Item Value Reference Range Interpretation Comme nts TOTAL PROTEIN (BEAKER) (test code = 770) 5.8 gm/dL 6.0-8.3 L ALBUMIN (BEAKER) (test code = 1145) 2.8 g/dL 3.5-5.0 L ALKALINE PHOSPHATASE (BEAKER) (test code = 346) 103 U/L 40-150 BILIRUBIN TOTAL (BEAKER) (test code = 377) 0.5 mg/dL 0.2-1.2 SODIUM (BEAKER) (test code = 381) 132 meq/L 136-145 L POTASSIUM (BEAKER) (test code = 379) 3.9 meq/L 3.5-5.1 CHLORIDE (BEAKER) (test code = 382) 107 meq/L 98-107 CO2 (BEAKER) (test code = 355) 20 meq/L 22-29 L BLOOD UREA NITROGEN (BEAKER) (test code = 354) 33 mg/dL 7-21 H CREATININE (BEAKER) (test code = 358) 2.24 mg/dL 0.57-1.25 H GLUCOSE RANDOM (BEAKER) (test code = 652) 188 mg/dL 70-105 H CALCIUM (BEAKER) (test code = 697) 7.7 mg/dL 8.4-10.2 L AST (SGOT) (BEAKER) (test code = 353) 30 U/L 5-34 ALT (SGPT) (BEAKER) (test code = 347) 32 U/L 6-55 EGFR (BEAKER) (test code = 1092) 29 mL/min/1.73 sq m Interpretation of eG FR values Stage Description Result G1 Normal or high >=90 G2 Mildly decreased 60-89 G3a Mildly to moderately 45-59 G3b Moderately to severely 30-44 G4 Severly decreased 15-29 G5 Kidney failure <15Reported eGFR is based on the CKD-EPI 2020 equation that does not use a race coefficientEstimated GFR is not as accurate as Creatinine Clearance in predicting glomerular filtration rate. Estimated GFR is not applicable for dialysis patients Die Engraver ID - LILIBETH [id number] 04:01:32* Test Item Value Reference Range Interpretation Comme nts PARTIAL THROMBOPLASTIN TIME (BEAKER) (test code = 760) 82.2 seconds 22.5-36.0 H [id number] 02:26:33* Test Item Value Reference Range Interpretation Comme nts MAGNESIUM (BEAKER) (test code = 627) 2.1 mg/dL 1.6-2.6 Specimen moder ately hemolyzed Die Engraver MADHAV - LILIBETH [id number] 02:26:33* Test Item Value Reference Range Interpretation Comme nts PHOSPHORUS (BEAKER) (test code = 604) 2.0 mg/dL 2.3-4.7 L Specimen moder ately hemolyzed Die Engraver MADHAV - LILIBETH [id number] 02:14:17* Test Item Value Reference Range Interpretation Comme nts PARTIAL THROMBOPLASTIN TIME (BEAKER) (test code = 760) 150.1 seconds 22.5-36.0 HH CBC W/PLT COUNT & AUTO [id number] 02:03:38* Test Item Value Reference Range Interpretation Comme nts WHITE BLOOD CELL COUNT (BEAK ER) (test code = 775) 14.8 K/ L 3.5-10.5 H RED BLOOD CELL COUNT (BEAKER ) (test code = 761) 2.38 M/ L 4.63-6.08 L HEMOGLOBIN (BEAKER) (test co de = 410) 7.4 GM/DL 13.7-17.5 L HEMATOCRIT (BEAKER) (test co de = 411) 22.8 % 40.1-51.0 L MEAN CORPUSCULAR VOLUME (NOEMI KER) (test code = 753) 96 fL 79-92 H MEAN CORPUSCULAR HEMOGLOBIN (BEAKER) (test code = 751) 31.1 pg 25.7-32.2 MEAN CORPUSCULAR HEMOGLOBIN CONC (BEAKER) (test code = 752) 32.5 GM/DL 32.3-36.5 RED CELL DISTRIBUTION WIDTH (BEAKER) (test code = 412) 15.5 % 11.6-14.4 H PLATELET COUNT (BEAKER) (dagoberto t code = 756) 401 K/CU MM 150-450 MEAN PLATELET VOLUME (BEAKER ) (test code = 754) 10.4 fL 9.4-12.4 NUCLEATED RED BLOOD CELLS (BEAKER) (test code = 413) 0 /100 WBC 0-0 NEUTROPHILS RELATIVE PERCENT (BEAKER) (test code = 429) 74 % LYMPHOCYTES RELATIVE PERCENT (BEAKER) (test code = 430) 11 % MONOCYTES RELATIVE PERCENT (BEAKER) (test code = 431) 7 % EOSINOPHILS RELATIVE PERCENT (BEAKER) (test code = 432) 5 % BASOPHILS RELATIVE PERCENT (BEAKER) (test code = 437) 2 % NEUTROPHILS ABSOLUTE COUNT (BEAKER) (test code = 670) 10.92 K/ L 1.78-5.38 H LYMPHOCYTES ABSOLUTE COUNT (BEAKER) (test code = 414) 1.66 K/ L 1.32-3.57 MONOCYTES ABSOLUTE COUNT (BE RITESH) (test code = 415) 0.98 K/ L 0.30-0.82 H EOSINOPHILS ABSOLUTE COUNT (BEAKER) (test code = 416) 0.74 K/ L 0.04-0.54 H BASOPHILS ABSOLUTE COUNT (BE RITESH) (test code = 417) 0.23 K/ L 0.01-0.08 H IMMATURE GRANULOCYTES-RELATI VE PERCENT (BEAKER) (test code = 2801) 1.60 % 0.00-1.00 H CALCIUM, [id number] 01:58:17* Test Item Value Reference Range Interpretation Comme nts CALCIUM IONIZED (BEAKER) (te st code = 698) 1.06 mmol/L 1.12-1.27 L PH, BLOOD (BEAKER) (test cod e = 1810) 7.41 [id number] 00:15:54* Test Item Value Reference Range Interpretation Comme nts PARTIAL THROMBOPLASTIN TIME (BEAKER) (test code = 760) > seconds 22.5-36.0 HH POCT-GLUCOSE [id number] 21:54:50* Test Item Value Reference Range Interpretation Comme nts POC-GLUCOSE METER (BEAKER) (test code = 1538) 170 mg/dL 70-110 H : Notified RN/MD : TESTED AT [facility] [address] [facility], [address]: Die Engraver/Cathode Washer ID = [id number] for Yanick Lynn [id number] 14:42:07* Test Item Value Reference Range Interpretation Comme nts PARTIAL THROMBOPLASTIN TIME (BEAKER) (test code = 760) 38.0 seconds 22.5-36.0 H CBC (HEMOGRAM ONLY)2022-05-21 14:32:08* Test Item Value Reference Range Interpretation Comme nts WHITE BLOOD CELL COUNT (BEAK ER) (test code = 775) 13.2 K/ L 3.5-10.5 H RED BLOOD CELL COUNT (BEAKER ) (test code = 761) 2.66 M/ L 4.63-6.08 L HEMOGLOBIN (BEAKER) (test co de = 410) 8.4 GM/DL 13.7-17.5 L HEMATOCRIT (BEAKER) (test co de = 411) 25.3 % 40.1-51.0 L MEAN CORPUSCULAR VOLUME (NOEMI KER) (test code = 753) 95 fL 79-92 H MEAN CORPUSCULAR HEMOGLOBIN (BEAKER) (test code = 751) 31.6 pg 25.7-32.2 MEAN CORPUSCULAR HEMOGLOBIN CONC (BEAKER) (test code = 752) 33.2 GM/DL 32.3-36.5 RED CELL DISTRIBUTION WIDTH (BEAKER) (test code = 412) 15.5 % 11.6-14.4 H PLATELET COUNT (BEAKER) (dagoberto t code = 756) 414 K/CU MM 150-450 MEAN PLATELET VOLUME (BEAKER ) (test code = 754) 10.5 fL 9.4-12.4 NUCLEATED RED BLOOD CELLS (BEAKER) (test code = 413) 0 /100 WBC 0-0 POCT-GLUCOSE [id number] 12:19:54* Test Item Value Reference Range Interpretation Comme nts POC-GLUCOSE METER (BEAKER) (test code = 1538) 170 mg/dL 70-110 H : TESTED AT [address], [address]: Die Engraver/Cathode Washer ID = [id number] for Jessica Burgos POCT-GLUCOSE [id number] 08:14:28* Test Item Value Reference Range Interpretation Comme nts POC-GLUCOSE METER (BEAKER) (test code = 1538) 172 mg/dL 70-110 H : TESTED AT [address], [address]: Die Engraver/Cathode Washer ID = [id number] for Quinton Burgosia POCT-GLUCOSE [id number] 07:52:45* Test Item Value Reference Range Interpretation Comme nts POC-GLUCOSE METER (BEAKER) (test code = 1538) 141 mg/dL 70-110 H : Notified RN/MD : TESTED AT [address], [address]: Die Engraver/Cathode Washer ID = [id number] for DIANA TOURE [id number] 05:39:20* Test Item Value Reference Range Interpretation Comme nts PHOSPHORUS (BEAKER) (test co de = 604) 1.4 mg/dL 2.3-4.7 LL Die Engraver ID - MARCOCOMPREHENSIVE METABOLIC [id number] 05:38:17* Test Item Value Reference Range Interpretation Comme nts TOTAL PROTEIN (BEAKER) (test code = 770) 5.9 gm/dL 6.0-8.3 L ALBUMIN (BEAKER) (test code = 1145) 2.8 g/dL 3.5-5.0 L ALKALINE PHOSPHATASE (BEAKER) (test code = 346) 104 U/L 40-150 BILIRUBIN TOTAL (BEAKER) (test code = 377) 0.6 mg/dL 0.2-1.2 SODIUM (BEAKER) (test code = 381) 135 meq/L 136-145 L POTASSIUM (BEAKER) (test code = 379) 3.8 meq/L 3.5-5.1 CHLORIDE (BEAKER) (test code = 382) 109 meq/L 98-107 H CO2 (BEAKER) (test code = 355) 18 meq/L 22-29 L BLOOD UREA NITROGEN (BEAKER) (test code = 354) 41 mg/dL 7-21 H CREATININE (BEAKER) (test code = 358) 2.38 mg/dL 0.57-1.25 H GLUCOSE RANDOM (BEAKER) (test code = 652) 156 mg/dL 70-105 H CALCIUM (BEAKER) (test code = 697) 7.8 mg/dL 8.4-10.2 L AST (SGOT) (BEAKER) (test code = 353) 32 U/L 5-34 ALT (SGPT) (BEAKER) (test code = 347) 33 U/L 6-55 EGFR (BEAKER) (test code = 1092) 27 mL/min/1.73 sq m Interpretation of eG FR values Stage Description Result G1 Normal or high >=90 G2 Mildly decreased 60-89 G3a Mildly to moderately 45-59 G3b Moderately to severely 30-44 G4 Severly decreased 15-29 G5 Kidney failure <15Reported eGFR is based on the CKD-EPI 2020 equation that does not use a race coefficientEstimated GFR is not as accurate as Creatinine Clearance in predicting glomerular filtration rate. Estimated GFR is not applicable for dialysis patients Die Engraver ID - [id number] 05:36:55* Test Item Value Reference Range Interpretation Comme nts MAGNESIUM (BEAKER) (test cod e = 627) 2.3 mg/dL 1.6-2.6 Die Engraver ID - MARCOCBC W/PLT COUNT & AUTO [id number] 04:40:07* Test Item Value Reference Range Interpretation Comme nts WHITE BLOOD CELL COUNT (BEAK ER) (test code = 775) 15.4 K/ L 3.5-10.5 H RED BLOOD CELL COUNT (BEAKER ) (test code = 761) 2.48 M/ L 4.63-6.08 L HEMOGLOBIN (BEAKER) (test co de = 410) 7.8 GM/DL 13.7-17.5 L HEMATOCRIT (BEAKER) (test co de = 411) 23.7 % 40.1-51.0 L MEAN CORPUSCULAR VOLUME (NOEMI KER) (test code = 753) 96 fL 79-92 H MEAN CORPUSCULAR HEMOGLOBIN (BEAKER) (test code = 751) 31.5 pg 25.7-32.2 MEAN CORPUSCULAR HEMOGLOBIN CONC (BEAKER) (test code = 752) 32.9 GM/DL 32.3-36.5 RED CELL DISTRIBUTION WIDTH (BEAKER) (test code = 412) 15.3 % 11.6-14.4 H PLATELET COUNT (BEAKER) (dagoberto t code = 756) 393 K/CU MM 150-450 MEAN PLATELET VOLUME (BEAKER ) (test code = 754) 10.4 fL 9.4-12.4 NUCLEATED RED BLOOD CELLS (BEAKER) (test code = 413) 0 /100 WBC 0-0 NEUTROPHILS RELATIVE PERCENT (BEAKER) (test code = 429) 73 % LYMPHOCYTES RELATIVE PERCENT (BEAKER) (test code = 430) 12 % MONOCYTES RELATIVE PERCENT (BEAKER) (test code = 431) 7 % EOSINOPHILS RELATIVE PERCENT (BEAKER) (test code = 432) 6 % BASOPHILS RELATIVE PERCENT (BEAKER) (test code = 437) 1 % NEUTROPHILS ABSOLUTE COUNT (BEAKER) (test code = 670) 11.20 K/ L 1.78-5.38 H LYMPHOCYTES ABSOLUTE COUNT (BEAKER) (test code = 414) 1.84 K/ L 1.32-3.57 MONOCYTES ABSOLUTE COUNT (BE RITESH) (test code = 415) 1.03 K/ L 0.30-0.82 H EOSINOPHILS ABSOLUTE COUNT (BEAKER) (test code = 416) 0.87 K/ L 0.04-0.54 H BASOPHILS ABSOLUTE COUNT (BE RITESH) (test code = 417) 0.17 K/ L 0.01-0.08 H IMMATURE GRANULOCYTES-RELATI VE PERCENT (BEAKER) (test code = 2801) 1.60 % 0.00-1.00 H CALCIUM, [id number] 04:32:29* Test Item Value Reference Range Interpretation Comme nts CALCIUM IONIZED (BEAKER) (te st code = 698) 1.06 mmol/L 1.12-1.27 L PH, BLOOD (BEAKER) (test cod e = 1810) 7.42 CREATININE, RANDOM [id number] 03:18:06* Test Item Value Reference Range Interpretation Comme nts CREATININE URINE (BEAKER) (t est code = 375) 64.6 mg/dL Reference Range: No NormalsOperator ID - [id number], RANDOM [id number] 03:18:01* Test Item Value Reference Range Interpretation Comme nts PROTEIN, URINE (BEAKER) (dagoberto t code = 1569) 145 mg/dL 0-14 H Die Engraver ID - [id number] W/ [id number] 21:39:29* Test Item Value Reference Range Interpretation Comme nts COLOR (BEAKER) (test code = 470) Yellow CLARITY (BEAKER) (test code = 469) Hazy SPECIFIC GRAVITY UA (BEAKER) (test code = 468) 1.013 1.001-1.035 PH UA (BEAKER) (test code = 467) 6.0 5.0-8.0 PROTEIN UA (BEAKER) (test code = 464) 100 mg/dL Negative A GLUCOSE UA (BEAKER) (test code = 365) 200 mg/dL Negative A KETONES UA (BEAKER) (test code = 371) Negative Negative BILIRUBIN UA (BEAKER) (test code = 462) Negative Negative BLOOD UA (BEAKER) (test code = 461) Small Negative A NITRITE UA (BEAKER) (test code = 465) Negative Negative LEUKOCYTE ESTERASE UA (BEAKER) (test code = 466) Large Negative A UROBILINOGEN UA (BEAKER) (test code = 463) 0.2 0.2-1.0 RBC UA (BEAKER) (test code = 519) 2 /HPF WBC UA (BEAKER) (test code = 520) 4 /HPF MUCUS (BEAKER) (test code = 1574) Rare SQUAMOUS EPITHELIAL (BEAKER) (test code = 516) 2 /HPF AMORPHOUS CRYSTALS (BEAKER) (test code = 1584) Rare SOURCE(BEAKER) (test code = 2795) Urine, Clean Catch Die Engraver ID - [auto]Die Engraver ID - techB-TYPE NATRIURETIC FACTOR (BNP)2022-05-20 16:59:41* Test Item Value Reference Range Interpretation Comme nts B-TYPE NATRIURETIC PEPTIDE ( BEAKER) (test code = 700) 88 pg/mL 0-100 Die Engraver ID - MARCOCOMPREHENSIVE METABOLIC [id number] 16:58:36* Test Item Value Reference Range Interpretation Comme nts TOTAL PROTEIN (BEAKER) (test code = 770) 6.2 gm/dL 6.0-8.3 ALBUMIN (BEAKER) (test code = 1145) 2.9 g/dL 3.5-5.0 L ALKALINE PHOSPHATASE (BEAKER) (test code = 346) 126 U/L 40-150 BILIRUBIN TOTAL (BEAKER) (test code = 377) 0.6 mg/dL 0.2-1.2 SODIUM (BEAKER) (test code = 381) 133 meq/L 136-145 L POTASSIUM (BEAKER) (test code = 379) 3.7 meq/L 3.5-5.1 CHLORIDE (BEAKER) (test code = 382) 107 meq/L 98-107 CO2 (BEAKER) (test code = 355) 19 meq/L 22-29 L BLOOD UREA NITROGEN (BEAKER) (test code = 354) 44 mg/dL 7-21 H CREATININE (BEAKER) (test code = 358) 2.43 mg/dL 0.57-1.25 H GLUCOSE RANDOM (BEAKER) (test code = 652) 253 mg/dL 70-105 H CALCIUM (BEAKER) (test code = 697) 7.7 mg/dL 8.4-10.2 L AST (SGOT) (BEAKER) (test code = 353) 25 U/L 5-34 ALT (SGPT) (BEAKER) (test code = 347) 35 U/L 6-55 EGFR (BEAKER) (test code = 1092) 26 mL/min/1.73 sq m Interpretation of eG FR values Stage Description Result G1 Normal or high >=90 G2 Mildly decreased 60-89 G3a Mildly to moderately 45-59 G3b Moderately to severely 30-44 G4 Severly decreased 15-29 G5 Kidney failure <15Reported eGFR is based on the CKD-EPI 2020 equation that does not use a race coefficientEstimated GFR is not as accurate as Creatinine Clearance in predicting glomerular filtration rate. Estimated GFR is not applicable for dialysis patients Die Engraver ID - MARCOC-REACTIVE [id number] 16:58:20* Test Item Value Reference Range Interpretation Comme nts C-REACTIVE PROTEIN (BEAKER) (test code = 676) 5.68 mg/dL 0.00-0.50 H Die Engraver ID - [id number] 16:54:59* Test Item Value Reference Range Interpretation Comme nts D-DIMER QUANTITATIVE (BEAKER ) (test code = 671) 2.81 MG/L FEU <0.50 H Intended Use: The D-Dimer Assay can be used to aid in the diagnosis of Deep Vein Thrombosis (DVT) and Pulmonary Embolism Disease (PED).In patients with low pre- test probability, various studies concerning STA Liatest D-dimer test have reported that with a cutoff value of 0.50 MG/L FEU, the NegativePredictive Value (NPV) regarding the exclusion of thrombosis is within 95-100% range.LACTATE DEHYDROGENASE (LDH)2022-05-20 16:53:40* Test Item Value Reference Range Interpretation Comme nts LACTATE DEHYDROGENASE (BEAKE R) (test code = 635) 222 U/L 125-220 H Die Engraver ID - MARCOCBC W/PLT COUNT & AUTO [id number] 16:49:52* Test Item Value Reference Range Interpretation Comme nts WHITE BLOOD CELL COUNT (BEAK ER) (test code = 775) 19.6 K/ L 3.5-10.5 H RED BLOOD CELL COUNT (BEAKER ) (test code = 761) 2.62 M/ L 4.63-6.08 L HEMOGLOBIN (BEAKER) (test co de = 410) 8.2 GM/DL 13.7-17.5 L HEMATOCRIT (BEAKER) (test co de = 411) 25.0 % 40.1-51.0 L MEAN CORPUSCULAR VOLUME (NOEMI KER) (test code = 753) 95 fL 79-92 H MEAN CORPUSCULAR HEMOGLOBIN (BEAKER) (test code = 751) 31.3 pg 25.7-32.2 MEAN CORPUSCULAR HEMOGLOBIN CONC (BEAKER) (test code = 752) 32.8 GM/DL 32.3-36.5 RED CELL DISTRIBUTION WIDTH (BEAKER) (test code = 412) 15.0 % 11.6-14.4 H PLATELET COUNT (BEAKER) (dagoberto t code = 756) 411 K/CU MM 150-450 MEAN PLATELET VOLUME (BEAKER ) (test code = 754) 10.7 fL 9.4-12.4 NUCLEATED RED BLOOD CELLS (BEAKER) (test code = 413) 0 /100 WBC 0-0 NEUTROPHILS RELATIVE PERCENT (BEAKER) (test code = 429) 80 % LYMPHOCYTES RELATIVE PERCENT (BEAKER) (test code = 430) 8 % MONOCYTES RELATIVE PERCENT (BEAKER) (test code = 431) 5 % EOSINOPHILS RELATIVE PERCENT (BEAKER) (test code = 432) 4 % BASOPHILS RELATIVE PERCENT (BEAKER) (test code = 437) 1 % NEUTROPHILS ABSOLUTE COUNT (BEAKER) (test code = 670) 15.70 K/ L 1.78-5.38 H LYMPHOCYTES ABSOLUTE COUNT (BEAKER) (test code = 414) 1.54 K/ L 1.32-3.57 MONOCYTES ABSOLUTE COUNT (BE RITESH) (test code = 415) 1.05 K/ L 0.30-0.82 H EOSINOPHILS ABSOLUTE COUNT (BEAKER) (test code = 416) 0.79 K/ L 0.04-0.54 H BASOPHILS ABSOLUTE COUNT (BE RITESH) (test code = 417) 0.21 K/ L 0.01-0.08 H IMMATURE GRANULOCYTES-RELATI VE PERCENT (BEAKER) (test code = 2801) 1.60 % 0.00-1.00 H POCT-GLUCOSE [id number] 16:46:14* Test Item Value Reference Range Interpretation Comme nts POC-GLUCOSE METER (BEAKER) (test code = 1538) 256 mg/dL 70-110 H : TESTED AT [facility] [address] [facility], [address]: Die Engraver/Cathode Washer ID = [id number] for Jessica Burgos Notes Date/Time Note Provider Source 2023-08-19 08:04:35 PROGRESS NOTE JAGJIT DAWSON FACILITY: [facility] Billing #: [id number] Room: [address] [place] [address] MR #: [id number] : 1940 PHYSICIAN: Mallory Tinoco MD ADMISSION DATE: 08/15/2023 DATE: 08/19/2023 SUBJECTIVE: Mr. Dawson has had no evidence of any bleeding. He has been ambulating well. The patient likely will be discharged today. There is no associated nausea or vomiting. There is no associated fever, chills, cough, shortness of breath. OBJECTIVE: VITAL SIGNS: Temperature was 98.4, pulse 92, respirations 19, blood pressure 122/62. LABORATORY DATA: Remarkable for a stable hematocrit 27.3, slightly lower than before. IMPRESSION: 1. Anemia, multifactorial. 2. Question gastrointestinal bleed. 3. Renal insufficiency. 4. History of cardiac issues. The patient is stable and will pursue outpatient GI workup. NM/MODL /[id number] Electronically signed by: MALLORY TINOCO at 2023-08-19 07:54:31.[address] 2023-08-18 10:13:39 PROGRESS NOTE JAGJIT DAWSON FACILITY: [facility] Billing #: [id number] Room: [facility] MR #: [id number] : 1940 PHYSICIAN: Mallory Tinoco MD ADMISSION DATE: 08/17/2023 DATE: 08/18/2023 SUBJECTIVE: Mr. Dawson has had no bleeding. There is no associated nausea or vomiting. He has been ambulating the corridors without much problem. "I likely will go home today." OBJECTIVE: VITAL SIGNS: Temperature was 98.4, pulse 93, respirations 18, and blood pressure 130/64. HEENT: No icterus was noted. ABDOMEN: Soft. No tenderness noted. No masses were felt. LABORATORY DATA: The hematocrit was stable at 28.1. IMPRESSION: 1. Anemia, multifactorial. 2. Renal insufficiency. 3. History of cardiac issues. I have given the patient my business card and advised them to call me if they cannot arrange for the endoscopy and colonoscopy in [facility]. They understand. I did tell them that if needed, he may just need to come once here to get these procedures done, though I did tell him also more likely he will be able to get it done there. NM/MODL /[id number] Electronically signed by: MALLORY TINOCO at 2023-08-18 07:43:52.[address] [facility] 2023-08-17 17:02:47 PROGRESS NOTE SAMIR JAGJIT FACILITY: [facility] Billing #: [id number] Room: [address] [place] [address] MR #: [id number] : 1940 PHYSICIAN: Mallory Tinoco MD ADMISSION DATE: 08/15/2023 DATE: 08/17/2023 SUBJECTIVE: Mr. Dawson was lying comfortably in bed. He actually has had no nausea or vomiting. He denies any fever, chills, cough, shortness of breath, headache, seizures, or other symptoms. PHYSICAL EXAMINATION: VITAL SIGNS: His temperature was 98.9, pulse 91, respirations 18, and blood pressure 131/63. HEENT: No icterus was noted. ABDOMEN: Soft. Data from various physicians was reviewed including Cardiology. The patient has had resolution of the bradycardia. Dr. Juan Muhammad's note was also reviewed. LABORATORY DATA: Lab results were also reviewed in detail, which showed a stable hematocrit of 29.6. IMPRESSION: 1. Anemia. 2. History of Eliquis use. 3. History of cardiac issues with atrial fibrillation and bradyarrhythmias. The patient has been stabilized from the cardiorespiratory standpoint. He has had no evidence of any active bleeding and the family does understand that as an outpatient probably in [facility] he will need both an EGD and a colonoscopy. If, however, the patient has active bleeding, I will go ahead and intervene. NM/MODL /[id number] Electronically signed by: MALLORY TINOCO at 2023-08-17 15:59:39.[address] [facility] 2023-08-16 13:38:44 CONSULTATION JAGJIT DAWSON FACILITY: [facility] Billing #: [id number] Room: [address] [place] [address] MR #: [id number] : 1940 DATE OF ADMISSION: 08/15/2023 DATE OF CONSULTATION: 08/15/2023 REQUESTING PHYSICIAN: [facility] ASSISTANT: Mallory Tinoco MD Gastroenterology Consultation Note REASON FOR CONSULTATION: Marked anemia. HISTORY OF PRESENT ILLNESS: The patient was seen and the chart reviewed. This was also discussed extensively with the sister and the son who was there. The patient apparently had presented to [facility] with shortness of breath, tiredness, and fatigue. He was found to be bradycardic in the 30s and also had some electrolyte abnormalities, but had the BUN and creatinine that were elevated at 68 and 3.98. Additionally, the hematocrit was 21.[address] of the abdomen essentially was otherwise unremarkable. The patient was transferred over here for further management. He has received 2 units of packed cells. "I feel a lot better now that I have some blood in me." The patient mentions that he has been anemic for a while and son mentions that he has been taking iron tablets. He did have somewhat dark or black stools, but mentions that the stool is only dark today. PAST MEDICAL HISTORY: Remarkable for cardiac issues, renal insufficiency. He has had the shortness of breath off and on for a while. SOCIAL/FAMILY HISTORY: The patient resides near the [facility] and lives with his family. REVIEW OF SYSTEMS: A detailed 14-point review of systems is otherwise unremarkable except for the progressive shortness of breath. There is no cough, fall, weight loss, weight gain, diabetes mellitus, or PND. There is no history of any GI bleeding. He did have an endoscopy a few months ago, which reportedly was negative, but the son mentions that it does not appear to his knowledge that he has had a colonoscopy recently. A detailed review of systems was obtained and essentially was unchanged from the review of systems obtained Ms. Bhat and therefore not duplicated. ALLERGIES: NKDA. HOME MEDICATIONS: List was reviewed. PHYSICAL EXAMINATION: GENERAL: Revealed a male, who appeared comfortable and did not appear in any distress. VITAL SIGNS: The temperature was 97.9, pulse 61, respirations 22, and the blood pressure is 145/67. HEENT: No icterus was noted. External ocular movements were intact. COR/CHEST: Decreased breath sounds were noted bilaterally. ABDOMEN: Soft, but obese. No tenderness noted. No masses were felt. EXTREMITIES: No cyanosis, clubbing, or edema. LABORATORY DATA: Reviewed. The iron study showed somewhat low iron at 13 with the iron being 38 and the iron binding 288. IMPRESSION: Anemia. The anemia appears multifactorial related to renal insufficiency, though a GI source cannot be ruled out, especially given the low iron, though he has had normal MCV. My recommendation would be is to put him on Ferrlecit 125 mg a day and also do a stool for occult blood. I offered him both an EGD and a colonoscopy during this hospitalization, but he would prefer to get it done in [facility] in another week or two. Cardiology and Pulmonary evaluations and consults are pending. Thank you for the courtesy of your referral. KAI/RADAMES /[id number] Electronically signed by: MALLORY TINOCO at 2023-08-16 13:05:48.[address] [facility]
--- NOTE | 2025-01-04 14:53 | RAD REPORT ---
EXAMINATION: ONE VIEW CHEST XR CLINICAL INDICATION: DYSPNEA TECHNIQUE: Frontal chest projection is submitted. Examination is limited by patient positioning and t echnique. COMPARISON: 08/15/2023 FINDINGS: Linear atelectasis is present in both lung bases. The lungs are otherwise clear. The heart is upper l imit of normal in size. No displaced fractures identified.
[2025-01-04 15:33] LABS: Absolute Lymphocytes (CBC) 1.4 K/uL (0.7-4.9); Hematocrit 26.2 % (39.6-49.0); Hemoglobin 8.7 g/dL (13.6-17.9); MCH 31.9 pg (27.0-35.0); MCHC 33.1 g/dL (32.0-36.0); MCV 96.4 fL (80-100); MPV 9.2 fL (7.6-11.3); Nucleated RBC Absolute Count 0.0 (0-0); Nucleated Red Blood Cells % 0.0 % (0-0); RBC Red Blood Cell Count 2.71 M/uL (4.33-5.43); White Blood Count 13.20 thou/uL (4.3-10.9)
[2025-01-04 15:37] LABS: PT Prothrombin Time 12.7 SECONDS (10-13.0); PTT, Activated Partial Thromb 32.2 SECONDS (27.2-37.4); Protime INR 1.13
[2025-01-04 15:45] LABS: Anion Gap 13.2 mEq/L (5.0-15.0); BUN Blood Urea Nitrogen 78.0 mg/dL (7-18); Glucose Level 283.0 mg/dL (74-106); NT PRO-BNP 1203.0 pg/mL (<450); Potassium 4.2 mEq/L (3.5-5.1); Troponin High Sensitivity 23.6 pg/mL (<58.9)
[2025-01-04] MEDS ORDERED: NA CHLORIDE 0.9% 250 ML ONE (17:37)
--- NOTE | 2025-01-04 18:52 | EDPHYS ---
Physician Documentation [facility] Name: Maik Mahmood Age: 84 yrs Sex: Male : 1940 Arrival Date: 01/04/2025 Time: 13:51 Bed 5 Private MD: ED Physician Rodrigue Bhagat HPI: 01/04 14:27 This 84 yrs old Male presents to ER via Wheelchair with complaints of General rn Weakness, Allergy Symptoms. 14:27 Patient reports generalized weakness and malaise, has chronic anemia on Eliquis and rn reports has nonhealing wounds to the buttocks that continue to bleed daily. Has required blood transfusion for this in the past. No blood in the stool. Denies focal pain.. Historical: - Allergies: 14:25 No Known Allergies; dd2 - PMHx: 14:25 Hypercholesterolemia; Hypertensive disorder; Anemia; Atrial fibrillation; dd2 - PSHx: 14:25 None; dd2 - Immunization history:: Adult Immunizations up to date. - Infectious Disease History:: Denies. - Social history:: Smoking status: Patient denies any tobacco usage or history of. - Family history:: not pertinent. - Hospitalizations: : No recent hospitalization is reported. ROS: 14:27 Constitutional: Negative for fever, chills, and weight loss, Cardiovascular: Negative rn for chest pain, palpitations, and edema, Respiratory: Negative for shortness of breath, cough, wheezing, and pleuritic chest pain, Abdomen/GI: Negative for abdominal pain, nausea, vomiting, diarrhea, and constipation, MS/Extremity: Negative for injury and deformity, Skin: Negative for injury, rash, and discoloration, Neuro: Negative for headache, numbness, tingling, and seizure, Exam: 14:27 Constitutional: This is a well developed, well nourished patient who is awake, alert, rn and in no acute distress. Cardiovascular: Bradycardic, regular. No pulse deficits. Respiratory: Speaking full sentences, unlabored. No increased work of breathing, no retractions or nasal flaring. Abdomen/GI: Soft, nontender Skin: Multiple excoriations and dried blood on extremities. Superficial wounds noted to buttocks, no active bleeding Neuro: Awake and alert, GCS 15 16:48 ECG was reviewed by the Attending Physician. rn Vital Signs: 14:20 BP 132 / 69; Pulse 49; Resp 16; Temp 98.3; Pulse Ox 100% on R/A; Weight 90.72 kg; Pain dd2 0/10; 15:29 BP 157 / 72; Pulse 59; Resp 18; Pulse Ox 100% on R/A; cc6 16:32 BP 153 / 73; Pulse 62; Pulse Ox 100% on R/A; cc6 19:00 vc1 19:50 BP 162 / 66; Pulse 59; Resp 16; Pulse Ox 100% ; vc1 14:20 Pain Scale: Adult dd2 19:00 See transfusion form for vitals vc1 MDM: 13:58 Medical Screening Exam initiated rn 16:38 Differential Diagnosis Anemia, infectious etiology, chronic wounds. Data reviewed: rn vital signs, nurses notes, lab test result(s), EKG, radiologic studies, plain films. I considered the following discharge prescriptions or medication management in the emergency department Medications were administered in the Emergency Department. See MAR. Independent interpretation of the following test(s) in the Emergency Department X-Ray: My interpretation is Chest x-ray images negative for pneumonia or pneumothorax per my interpretation. cafeteria monitor: rate is 62 beats/min, Rhythm is normal sinus rhythm, regular, with no ectopy, Interpretation: normal rate, normal rhythm. Care significantly affected by the following chronic conditions: Hypertension, Anemia. Counseling: I had a detailed discussion with the patient and/or guardian regarding the historical points, exam findings, and any diagnostic results supporting the discharge/admit diagnosis, lab results, radiology results, the need for outpatient follow up, to return to the emergency department if symptoms worsen or persist or if there are any questions or concerns that arise at home. ED course: Patient with mild anemia, this is what happened last time, was discharged and had to return for blood transfusion. Patient has chronic nonhealing wounds but do not appear infected. This is amplified by patient taking Eliquis. Will transfuse 1 unit of blood, give 60 mg of Lasix and anticipate discharge home.. 18:33 External Records Reviewed: Outside ED record: Review of previous visit shows sinus rn bradycardia similar to today.. 18:34 Consideration of Admission/Observation Escalation of care including physician/internist/observation considered. 01/04 15:56 Order name: Type And Screen rn 01/04 14:26 Order name: CBC with Diff; Complete Time: 15:54 rn 01/04 14:26 Order name: Basic Metabolic Panel; Complete Time: 15:54 rn 01/04 14:26 Order name: PT-INR; Complete Time: 15:54 rn 01/04 14:26 Order name: Ptt, Activated; Complete Time: 15:54 rn 01/04 14:26 Order name: BNP; Complete Time: 15:54 rn 01/04 14:26 Order name: Troponin High Sensitivity; Complete Time: 15:54 rn 01/04 17:15 Order name: Packed RBCs (Additional Unit) [facility] 01/04 14:26 Order name: XRAY Chest (1 view); Complete Time: 15:08 rn 01/04 14:26 Order name: IV Start; Complete Time: 15:22 rn 01/04 14:26 Order name: EKG - Nurse/Tech; Complete Time: 16:00 rn 01/04 16:35 Order name: Transfuse; Complete Time: 20:41 rn EC:48 Rate is 54 beats/min. Rhythm is regular. Left axis deviation noted. QRS is positive in rn lead I and negative in lead aVF. QRS interval is prolonged. QT interval is normal. No Q waves. T waves are Normal. No ST changes noted. Clinical impression: NSR w/ Non-specific ST/T Changes. Interpreted by me. Reviewed by me. Administered Medications: 20:41 Drug: Furosemide IVP 60 mg IVP once; give over 2 minutes; give with transfusion Route: vc1 IVP; Site: right wrist; 20:41 Follow up: Response: Medication administered at discharge. 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 Total rn time: 35 minutes Signatures: Dispatcher [employer] [facility] Rodrigue Bhagat MD MD rn Calcote, Vanessa, RN RN vc1 Sunshine Medina, RN RN cc6 EMMY PARIS RN RN dd2 Corrections: (The following items were deleted from the chart) 15:12 14:27 Constitutional: This is a well developed, well nourished patient who is awake, rn alert, and in no acute distress. Cardiovascular: Bradycardic, regular. No pulse deficits. Respiratory: Speaking full sentences, unlabored. No increased work of breathing, no retractions or nasal flaring. Abdomen/GI: Soft, nontender Skin: Multiple excoriations and dried blood on extremities Neuro: Awake and alert, GCS 15 rn
--- NOTE | 2025-01-04 18:52 | ER ---
Nurse's Notes [facility] Name: Maik Mahmood Age: 84 yrs Sex: Male : 1940 Arrival Date: 01/04/2025 Time: 13:51 Bed 5 Private MD: Diagnosis: Anemia, unspecified Presentation: 01/04 14:20 Chief complaint: Patient states: HE HAS FELT BAD FOR A SEVERAL WEEKS, ALLERGIES dd2 AFFECTING HIS BREATHING AND REQUIRES NOSE SPRAY. PT ALSO REPORTS HAS 2 WOUNDS ON HIS BUTTOCKS THAT BE BLEEDS QUITE A LOT FROM. PT'S SPOUSE REPORTS HE IS ON ELIQUIS. PT DENIES BLOODY STOOL OR VOMITING. Coronavirus screen: At this time, the client does not indicate any symptoms associated with coronavirus-19. Ebola Screen: No symptoms or risks identified at this time. Initial Sepsis Screen: Does the patient meet any 2 criteria? No. Patient's initial sepsis screen is negative. Does the patient have a suspected source of infection? No. Patient's initial sepsis screen is negative. Risk Assessment: Do you want to hurt yourself or someone else? Patient reports no desire to harm self or others. Onset of symptoms is unknown. 14:20 Method Of Arrival: Wheelchair dd2 14:20 Acuity: PATRICIA 3 dd2 Triage Assessment: 14:25 General: Appears in no apparent distress. ill, Behavior is calm, cooperative, dd2 appropriate for age. Pain: Denies pain. GI: Reports nausea. Derm: Reports BLEEDING WOUNDS TO BUTTOCKS. Historical: - Allergies: 14:25 No Known Allergies; dd2 - PMHx: 14:25 Hypercholesterolemia; Hypertensive disorder; Anemia; Atrial fibrillation; dd2 - PSHx: 14:25 None; dd2 - Immunization history:: Adult Immunizations up to date. - Infectious Disease History:: Denies. - Social history:: Smoking status: Patient denies any tobacco usage or history of. - Family history:: not pertinent. - Hospitalizations: : No recent hospitalization is reported. Screenin:20 [facility] ED Fall Risk Assessment (Adult) History of falling in the last 3 months, cc6 including since admission No falls in past 3 months (0 pts) Confusion or Disorientation No (0 pts) Intoxicated or Sedated No (0 pts) Impaired Gait No (0 pts) Mobility Assist Device Used No (0 pt) Altered Elimination No (0 pt) Score/Fall Risk Level 0 - 2 = Low Risk Oriented to surroundings, Maintained a safe environment, Educated pt \T\ family on fall prevention, incl call for assistance when getting out of bed. Abuse screen: Denies threats or abuse. Denies injuries from another. Nutritional screening: No deficits noted. Tuberculosis screening: No symptoms or risk factors identified. Assessment: 14:20 General: Appears in no apparent distress. comfortable, Behavior is calm, cooperative. cc6 Pain: Denies pain. Neuro: Level of Consciousness is awake, alert, obeys commands, Oriented to person, place, time, situation. Cardiovascular: Patient's skin is warm and dry. Respiratory: Airway is patent Respiratory effort is even, unlabored, Respiratory pattern is regular, symmetrical. GI: Abdomen is round Bowel sounds present X 4 quads. Abd is soft and non tender X 4 quads. Reports nausea. : No signs and/or symptoms were reported regarding the genitourinary system. EENT: No signs and/or symptoms were reported regarding the EENT system. Derm: Wound noted gluteal cleft. Musculoskeletal: Range of motion: intact in all extremities. 15:29 Reassessment: Patient and/or family updated on plan of care and expected duration. Pain cc6 level reassessed. Patient is alert, oriented x 3, equal unlabored respirations, skin warm/dry/pink. 16:33 Reassessment: Patient and/or family updated on plan of care and expected duration. Pain cc6 level reassessed. Patient is alert, oriented x 3, equal unlabored respirations, skin warm/dry/pink. Vital Signs: 14:20 BP 132 / 69; Pulse 49; Resp 16; Temp 98.3; Pulse Ox 100% on R/A; Weight 90.72 kg; Pain dd2 0/10; 15:29 BP 157 / 72; Pulse 59; Resp 18; Pulse Ox 100% on R/A; cc6 16:32 BP 153 / 73; Pulse 62; Pulse Ox 100% on R/A; cc6 19:00 vc1 19:50 BP 162 / 66; Pulse 59; Resp 16; Pulse Ox 100% ; vc1 14:20 Pain Scale: Adult dd2 19:00 See transfusion form for vitals vc1 ED Course: 13:53 Patient arrived in ED. im 13:58 Rodrigue Bhagat MD is Attending Physician. rn 14:20 Patient has correct armband on for positive identification. Bed in low position. Call cc6 light in reach. Side rails up X 1. Provided Education on: use of call light. 14:25 Triage completed. dd2 14:25 Arm band placed on right wrist. dd2 14:50 XRAY Chest (1 view) In Process Unspecified. EDMT 14:59 Sunshine Medina, RN is Primary Nurse. cc6 15:22 CBC with Diff Sent. cc6 15:22 PT-INR Sent. cc6 15:22 Ptt, Activated Sent. cc6 15:22 BNP Sent. cc6 15:22 Troponin High Sensitivity Sent. cc6 16:17 Type And Screen Sent. cc6 20:10 No provider procedures requiring assistance completed. IV discontinued, intact, vc1 bleeding controlled, No redness/swelling at site. Pressure dressing applied. Administered Medications: 20:41 Drug: Furosemide IVP 60 mg IVP once; give over 2 minutes; give with transfusion Route: vc1 IVP; Site: right wrist; 20:41 Follow up: Response: Medication administered at discharge. vc1 Medication: 20:10 VIS not applicable for this client. vc1 Outcome: 18:51 Discharge ordered by MD. rn 20:10 Discharged to home via wheelchair, with family, vc1 20:10 Condition: stable 20:10 Discharge instructions given to patient, family, Instructed on discharge instructions, follow up and referral plans. medication usage, Demonstrated understanding of instructions, follow-up care, 20:48 Patient left the ED. vc1 Signatures: Dispatcher [employer] [facility] Rodrigue Bhagat MD MD rn Calcote, Vanessa RN RN vc1 Katrin Nunez Sunshine Medina, JOE RN cc6 EMMY PARIS RN RN dd2 Corrections: (The following items were deleted from the chart) 20:48 20:43 Condition: stable vc1 vc1 20:48 20:43 Discharged to home via wheelchair, with family, vc1 vc1 20:48 20:43 Discharge instructions given to patient, family, Instructed on discharge vc1 instructions, follow up and referral plans. medication usage, Demonstrated understanding of instructions, follow-up care, vc1
[2025-01-04] MEDS ORDERED: FUROSEMIDE 20 MG/ 2ML VIAL ONE (19:53)
[2025-01-04] MEDS ORDERED: FUROSEMIDE 40 MG/4 ML VIAL ONE (19:53)
[2025-01-05 02:07] VITALS: TEMP 98.3; O2SAT 100
[2025-01-05 02:12] VITALS: BP 162/66
== END 2025-01-04 20:48 | disposition home or self-care (01) ==
LOC: ER 13:51
PROC: 30233N1 Transfusion of Nonautologous Red Blood Cells into Peripheral Vein, Percutaneous Approach (ICD-10-PCS; principal; 2025-01-04)
DX: D64.9 Anemia, unspecified (principal)
CPT/HCPCS: 93005; 85025; 80048; 36415; 86900; 86850; 85610; 86901; 85730; 86920; 84484; 83880; 71045; 96374; 99284; 36430; J1938 ×2; P9016; J7050